=== PATIENT | female | born 1935 | race Caucasian/White ===

== ENCOUNTER 2020-10-15 10:43 | Outpatient (REF) | payer MEDICARE, OTHER, SELFPAY ==
--- NOTE | 2020-10-15 10:49 | MM_ITS ---
EXAMINATION: MM SCREENING DIGITAL BREAST TOMOSYNTHESIS, BILATERAL CLINICAL INFORMATION: Screening. Asymptomatic. The lifetime risk of breast cancer based on the Tyrer-Cuzick Model is 1%. COMPARISON: Mammography: 10/10/2019, 09/08/2018, 08/22/2017 TECHNIQUE: Digital breast tomosynthesis is performed in both the craniocaudal and mediolateral oblique views along with computer-aided detection (CAD). Synthesized 2D images are generated from the tomosynthesis. FINDINGS: There are scattered areas of fibroglandular density (ACR BI-RADS breast composition Category b). There are no significant masses, abnormal calcifications, or other abnormalities. Parenchymal pattern is similar to prior studies. No significant changes. MM/MM tomosynthesis screening BI IMPRESSION: No mammographic evidence of malignancy. ASSESSMENT: BI-RADS 1: Negative RECOMMENDATION: Routine annual mammography screening. This patient's information was entered into a reminder system with a target due date for their next mammogram.
== END 2020-10-15 10:44 | disposition home or self-care (01) ==
LOC: HO.MAMMO 10:43
PROVIDERS: PCP Internal Medicine; Visit Provider Internal Medicine
DX: Z12.31 Encounter for screening mammogram for malignant neoplasm of breast (principal)
CPT/HCPCS: 77063; 77067

== ENCOUNTER 2021-02-09 11:25 | Outpatient (REF) | payer MEDICARE, OTHER, SELFPAY ==
[2021-02-09 13:14] LABS: MANUAL DIFF FLAG NO
[2021-02-09 13:37] LABS: Basophils Percent Auto 0.7 % (0-2); Eosinophils Absolute Auto 0.1 X10*3/uL (0.0-0.4); Eosinophils Percent Auto 1.5 % (0-4); Hematocrit 40.5 % (37-47); Hemoglobin 13.4 g/dl (12.0-16.0); Imm Gran Abs Auto 0.01 X10*3/uL (0.00-0.03); Imm Gran Pct Auto 0.2 % (0.0-0.4); Lymphocytes Absolute Auto 1.2 X10*3/uL (1.2-4.9); Lymphocytes Percent Auto 19.7 % (20-40); Mean Corpuscular HGB Conc 33.1 g/dl (31.0-35.0); Mean Corpuscular Hemoglobin 32.4 pg (27.0-33.0); Mean Corpuscular Volume 97.8 fL (80-98); Mean Platelet Volume 8.8 fL (9.4-12.3); Monocytes Absolute Auto 0.6 X10*3/uL (0.1-1.2); Monocytes Percent Auto 10.8 % (2-11); Neutrophils Percent Auto 67.1 % (45-73); Platelet Count 268 X10*3/uL (160-400); Red Blood Count 4.14 X10*6/uL (4.20-5.50); Red Cell Distribution Width 13.2 % (11.0-16.0); White Blood Count 5.9 X10*3/uL (4.8-10.8)
[2021-02-09 13:53] LABS: Alanine Aminotransferase 15 U/L (0-31); Albumin Level 4.4 g/dL (3.5-5.0); Alkaline Phosphatase 84 U/L (39-117); Anion Gap 13 (12-20); Aspartate Amino Transferase 23 U/L (5-31); Bilirubin Total 0.7 mg/dL (0.0-1.0); Blood Urea Nitrogen 18 mg/dL (9-16); C Reactive Protein 0.36 mg/dL (< or = 0.50); Calcium 9.3 mg/dL (8.4-10.2); Carbon Dioxide 29 mmol/L (22-29); Chloride 103 mmol/L (96-108); Estimated Glomerular Filt Rate > 60; Glucose Random 86 mg/dL (60-115); Potassium 4.5 mmol/L (3.3-5.1); Sodium 140 mmol/L (135-145); Total Protein 7.2 g/dL (6.5-8.0)
[2021-02-09 13:59] LABS: Free T4 (Free Thyroxine) 0.98 ng/dL (0.71-1.85); Thyroid Stimulating Hormone 0.63 uIU/mL (0.32-4.0); Vitamin D 25-OH Total 51.2 ng/mL (>30)
[2021-02-09 14:15] LABS: Folate 8.2 ng/mL (> or = 4.0); Vitamin B12 < 146 pg/mL (200-900)
== END 2021-02-09 11:26 | disposition home or self-care (01) ==
LOC: HO.10HDL 11:25
PROVIDERS: Visit Provider Internal Medicine
DX: I10 Essential (primary) hypertension (principal); E03.9 Hypothyroidism, unspecified; J44.9 Chronic obstructive pulmonary disease, unspecified; M81.0 Age-related osteoporosis without current pathological fracture
CPT/HCPCS: 36415; 80053; 82306; 82607; 82746; 84439; 84443; 85025; 86140

== ENCOUNTER 2021-06-15 10:57 | Outpatient (REF) | payer MEDICARE, OTHER, SELFPAY ==
--- NOTE | ~2021-06-15 | CT_ITS ---
EXAMINATION: CT HEAD WITHOUT CONTRAST CLINICAL INFORMATION: Multiple sclerosis. COMPARISON: None TECHNIQUE: Contiguous axial imaging was performed from the skull base to vertex without intravenous administration of contrast. This CT examination was performed using dose optimization techniques as appropriate, variously including the following: *Automated exposure control *Adjustment of mA and/or kV according to patient size (this includes techniques or standardized protocols for targeted exams where dose is matched to indication/reason for exam; i.e. extremities or head) *Use of iterative reconstruction technique DLP: 664 mGy-cm FINDINGS: There is no evidence of acute intracranial hemorrhage or territorial infarction. No abnormal mass effect or midline shift is seen. [id number] matter differentiation is well preserved. No extra-axial fluid collections are identified. There is a large amount of periventricular white matter low density as well as other regions of white matter low density consistent with microangiopathy. Calcified vertebral and carotid arteries present. There is mild prominence of ventricles and sulci. The osseous structures and soft tissues are normal. The mastoid air cells and visualized portions of the paranasal sinuses are well aerated. CT/CT head/brain wo con IMPRESSION: No acute intracranial pathology. 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
== END 2021-06-15 10:58 | disposition home or self-care (01) ==
LOC: HO.CT 10:57
PROVIDERS: PCP Internal Medicine; Visit Provider Internal Medicine
DX: G35 Multiple sclerosis (principal); J44.9 Chronic obstructive pulmonary disease, unspecified; Z87.891 Personal history of nicotine dependence
CPT/HCPCS: 70450

== ENCOUNTER 2021-08-06 11:55 | Outpatient (REF) | payer MEDICARE, OTHER, SELFPAY ==
[2021-08-06 13:22] LABS: MANUAL DIFF FLAG NO
[2021-08-06 13:25] LABS: Basophils Percent Auto 0.7 % (0-2); Eosinophils Absolute Auto 0.1 X10*3/uL (0.0-0.4); Hematocrit 40.9 % (37-47); Hemoglobin 13.8 g/dl (12.0-16.0); Imm Gran Abs Auto 0.01 X10*3/uL (0.00-0.03); Imm Gran Pct Auto 0.2 % (0.0-0.4); Lymphocytes Absolute Auto 1.3 X10*3/uL (1.2-4.9); Lymphocytes Percent Auto 21.3 % (20-40); Mean Corpuscular HGB Conc 33.7 g/dl (31.0-35.0); Mean Corpuscular Hemoglobin 32.7 pg (27.0-33.0); Mean Corpuscular Volume 96.9 fL (80-98); Mean Platelet Volume 8.6 fL (9.4-12.3); Monocytes Absolute Auto 0.7 X10*3/uL (0.1-1.2); Neutrophils Absolute Auto 3.9 X10*3/uL (2.0-8.3); Neutrophils Percent Auto 64.8 % (45-73); Platelet Count 271 X10*3/uL (160-400); Red Blood Count 4.22 X10*6/uL (4.20-5.50); Red Cell Distribution Width 13.2 % (11.0-16.0)
[2021-08-06 13:57] LABS: Alanine Aminotransferase 15 U/L (0-31); Albumin Level 4.4 g/dL (3.5-5.0); Alkaline Phosphatase 71 U/L (39-117); Anion Gap 13 (12-20); Aspartate Amino Transferase 22 U/L (5-31); Bilirubin Total 0.6 mg/dL (0.0-1.0); Blood Urea Nitrogen 14 mg/dL (9-16); Calcium 10.8 mg/dL (8.4-10.2); Carbon Dioxide 29 mmol/L (22-29); Chloride 103 mmol/L (96-108); Estimated Glomerular Filt Rate > 60; Glucose Random 91 mg/dL (60-115); Potassium 4.7 mmol/L (3.3-5.1); Sodium 140 mmol/L (135-145); Total Protein 7.3 g/dL (6.5-8.0)
[2021-08-06 14:18] LABS: Free T4 (Free Thyroxine) 1.07 ng/dL (0.71-1.85); Thyroid Stimulating Hormone 0.99 uIU/mL (0.32-4.0)
[2021-08-06 14:51] LABS: Vitamin B12 338 pg/mL (200-900)
== END 2021-08-06 11:56 | disposition home or self-care (01) ==
LOC: HO.10HDL 11:55
PROVIDERS: Visit Provider Internal Medicine
DX: J44.9 Chronic obstructive pulmonary disease, unspecified (principal); E03.9 Hypothyroidism, unspecified; I10 Essential (primary) hypertension; E53.8 Deficiency of other specified B group vitamins
CPT/HCPCS: 36415; 80053; 82607; 84439; 84443; 85025

== ENCOUNTER 2021-08-20 13:14 | Outpatient (REF) | payer SELFPAY ==
--- NOTE | 2021-08-20 13:23 | MHC.AU.HFU ---
Hearing Instrument Follow-Up- Binaural Date of Visit: 08/20/21 Right Ear: Senior Qa Automation Engineer: Phonak Model: Audeo M 50-R Serial Number: [id number] Repair Warranty: 09/10/2022 Battery Size: Rechargeable Color: Sand [address] Tester: #1 Power Type of Mold: Silicon canal #[id number] Type of Wax Guard: CeruShield Dispensed By: [facility] Date of Fittin06/27/2019 Left Ear: Senior Qa Automation Engineer: Phonak Model: Audeo M 50-R Serial Number: [id number] Repair Warranty: 09/10/2022 Battery Size: Rechargeable Color: Sand [address] Tester: #1 Medium Type of Dome: Small Open Type of Wax Guard: CeruShield Dispensed By: [facility] Date of Fittin06/27/2019 Follow-Up Summary: Hearing Aid Problem - Right aid is not charging. Patient brought in her own chainstitch seat joiner with the aids. The left aid charges in the right side of the chainstitch seat joiner. Also confirmed with stock chainstitch seat joiner that the right aid is not charging. Sending right aid for repair and cleaning of the slim tip under warranty. Patient reports she never wears the aids at home. Discussed the benefits of every day, all day use of both hearing aids to improve hearing. Recommendations:Call patient when right repair in. Will need to pair aids together. Diagnosis Code(s): Primary Diagnosis: H90.3 Bilateral Sensorineural Hearing Loss Signature: Provider: Karen Umanzor, [facility]
== END 2021-08-20 13:15 | disposition home or self-care (01) ==
LOC: HO.HAP 13:14
PROVIDERS: Visit Provider Internal Medicine
DX: Z13.89 Encounter for screening for other disorder (principal)

== ENCOUNTER 2021-09-22 11:08 | Outpatient (REF) | payer SELFPAY | END 2021-09-22 11:09 | disposition home or self-care (01) | LOC: HO.HAP 11:08 | PROVIDERS: Visit Provider Internal Medicine | DX: Z13.89 Encounter for screening for other disorder (principal) ==

== ENCOUNTER 2021-11-05 11:35 | Outpatient (REF) | payer MEDICARE, OTHER, SELFPAY ==
[2021-11-05 14:16] LABS: Anion Gap 10 (12-20); Blood Urea Nitrogen 16 mg/dL (9-16); Calcium 9.4 mg/dL (8.4-10.2); Carbon Dioxide 29 mmol/L (22-29); Chloride 107 mmol/L (96-108); Estimated Glomerular Filt Rate > 60; Glucose Random 77 mg/dL (60-115); Potassium 4.3 mmol/L (3.3-5.1); Sodium 142 mmol/L (135-145)
[2021-11-05 14:42] LABS: Free T4 (Free Thyroxine) 1.13 ng/dL (0.71-1.85); Thyroid Stimulating Hormone 0.61 uIU/mL (0.32-4.0)
[2021-11-08 16:26] LABS: Calcium (PTHI) 9.8 mg/dL (8.6-10.4); PTHI 40 pg/mL (14-64)
== END 2021-11-05 11:36 | disposition home or self-care (01) ==
LOC: HO.10HDL 11:35
PROVIDERS: Visit Provider Internal Medicine
DX: E03.9 Hypothyroidism, unspecified (principal); J44.9 Chronic obstructive pulmonary disease, unspecified; I10 Essential (primary) hypertension; E83.52 Hypercalcemia
CPT/HCPCS: 36415; 80048; 83970; 84439; 84443

== ENCOUNTER 2022-02-24 12:24 | Outpatient (REF) | payer MEDICARE, OTHER, SELFPAY ==
--- NOTE | ~2022-02-24 | MM_ITS ---
EXAMINATION: MM SCREENING DIGITAL BREAST TOMOSYNTHESIS, BILATERAL CLINICAL INFORMATION: Screening. Asymptomatic. COMPARISON: Mammography: 10/15/2020 and studies dating back to 12/28/2011 TECHNIQUE: Digital breast tomosynthesis is performed in both the craniocaudal and mediolateral oblique views along with computer-aided detection (CAD). Synthesized 2D images are generated from the tomosynthesis. FINDINGS: There are scattered areas of fibroglandular density (ACR BI-RADS breast composition Category b). There is a stable parenchymal pattern of the right breast with no new abnormal dominant mass or suspicious grouping of microcalcifications. Within the axillary region approximately 11 cm from the nipple, there is a 7 mm irregularly marginated density but on tomographic view appears to be a skin lesion with appearance of a mole. MM/MM tomosynthesis screening BI IMPRESSION: No mammographic evidence of malignancy. ASSESSMENT: BI-RADS 1: Negative RECOMMENDATION: Routine annual mammography screening. This patient's information was entered into a reminder system with a target due date for their next mammogram.
--- NOTE | ~2022-02-24 | MM_ITS ---
EXAMINATION: BONE DENSITOMETRY CLINICAL INDICATION: Asymptomatic menopausal state. COMPARISON: Previous BD dated 03/14/2019 and baseline BD dated 03/24/2011. TECHNIQUE: Using a [employer] DXA System (software version: 13.1) manufactured by [employer], dual-energy x-ray absorptiometry was performed of the lumbar spine and left hip. The images are of good technical quality. Summary results are attached. FINDINGS: AP SPINE L1-L4: Current: BMD 0.758 g/cm2, Z-score -1.2, T-score -3.5, osteoporosis, 4.3% increase from previous, 7.4% decrease from baseline (<5% change is not significant). Prior: BMD 0.727 g/cm2. Baseline: BMD 0.819 g/cm2. LEFT FEMUR, NECK: Current: BMD 0.693 g/cm2, Z-score 0.2, T-score -2.5, osteoporosis. Prior: BMD 0.660 g/cm2. Baseline: BMD 0.702 g/cm2. LEFT FEMUR, TOTAL: Current: BMD 0.682 g/cm2, Z-score 0.0, T-score -2.6, osteoporosis, 6.1% increase from previous, 4.2% decrease from baseline (<5% change is not significant). Prior: BMD 0.643 g/cm2. Baseline: BMD 0.712 g/cm2. IDENTIFIED RISK FACTORS: Low calcium intake, menopause. HISTORY OF FRACTURE: None listed. MEDICATIONS: Vitamin D. MM/XR DEXA axial skeleton IMPRESSION: 1. DIAGNOSIS: Osteoporosis based on the lowest T-score value of -3.5 in the lumbar spine applying World Health Organization criteria. 2. 10-YEAR FRACTURE RISK PREDICTION, FRAX: According to the guidelines, FRAX calculation should only be performed on patients in the osteopenia bone density category. Therefore, FRAX was not performed on this patient. 3. Treatment Recommendations: NOF guidelines recommend consideration for treatment in postmenopausal women and men age 50 and older presenting with the following: -A hip or vertebral (clinical or morphometric) fracture. -T-score less than or equal to -2.5 at the femoral neck or spine after appropriate evaluation to exclude secondary causes. -Low bone mass at the hip or spine and a 10-year fracture probability by FRAX of greater than or equal to 3% for hip fracture or greater than or equal to 20% for major osteoporotic fracture based on the [place] adapted WHO algorithm. 4. Other Recommendations: All treatment decisions require clinical judgment and consideration of individual patient factors, including patient preferences, comorbidities, previous drug use, risk factors not captured in the FRAX model (e.g. frailty, falls, vitamin D deficiency, increased bone turnover, interval significant decline in bone density) and possible under or overestimation of fracture risk by FRAX. Additional medical evaluation for secondary cause of low bone mineral density may be appropriate. FUTURE SCAN RECOMMENDATION: People with diagnosed cases of osteoporosis or at high risk for fracture should have regular bone mineral density tests. For patients eligible for Medicare, routine testing is allowed once every 2 years. The testing frequency can be increased to one year for patients who have rapidly progressing disease, those who are receiving or discontinuing medical therapy to restore bone mass, or have additional risk factors.
[2022-02-24 13:32] LABS: MANUAL DIFF FLAG NO
[2022-02-24 13:52] LABS: Basophils Percent Auto 0.5 % (0-2); Eosinophils Absolute Auto 0.1 X10*3/uL (0.0-0.4); Eosinophils Percent Auto 1.6 % (0-4); Hematocrit 40.4 % (37.0-47.0); Hemoglobin 13.6 g/dl (12.0-16.0); Imm Gran Abs Auto 0.02 X10*3/uL (0.00-0.03); Imm Gran Pct Auto 0.3 % (0.0-0.4); Lymphocytes Absolute Auto 1.4 X10*3/uL (1.2-4.9); Lymphocytes Percent Auto 21.7 % (20-40); Mean Corpuscular HGB Conc 33.7 g/dl (31.0-35.0); Mean Corpuscular Hemoglobin 33.2 pg (27.0-33.0); Mean Corpuscular Volume 98.5 fL (80.0-98.0); Mean Platelet Volume 8.5 fL (9.4-12.3); Monocytes Absolute Auto 0.7 X10*3/uL (0.1-1.2); Monocytes Percent Auto 10.8 % (2-11); Neutrophils Absolute Auto 4.1 x10*3/uL (2.0-8.3); Neutrophils Percent Auto 65.1 % (45-73); Platelet Count 251 X10*3/uL (160-400); Red Cell Distribution Width 13.3 % (11.0-16.0); White Blood Count 6.3 X10*3/uL (4.8-10.8)
[2022-02-24 14:13] LABS: Alanine Aminotransferase 19 U/L (0-31); Albumin Level 4.4 g/dL (3.5-5.0); Alkaline Phosphatase 79 U/L (39-117); Anion Gap 11 (12-20); Aspartate Amino Transferase 23 U/L (5-31); Bilirubin Total 0.5 mg/dL (0.0-1.0); Blood Urea Nitrogen 15 mg/dL (9-16); Calcium 9.9 mg/dL (8.4-10.2); Carbon Dioxide 31 mmol/L (22-29); Chloride 103 mmol/L (96-108); Cholesterol 241 mg/dL; Estimated Glomerular Filt Rate > 60; Glucose Fasting 91 mg/dL (60-99); HDL Cholesterol 93 mg/dL; LDL Cholesterol Calculated 131 mg/dl; Potassium 4.6 mmol/L (3.3-5.1); Sodium 140 mmol/L (135-145); Total Protein 7.4 g/dL (6.5-8.0); Triglycerides 85 mg/dL
[2022-02-24 14:27] LABS: Free T4 (Free Thyroxine) 0.95 ng/dL (0.71-1.85); Thyroid Stimulating Hormone 0.95 uIU/mL (0.32-4.0); Vitamin D 25-OH Total 47.2 ng/mL (>30)
[2022-02-24 14:48] LABS: Vitamin B12 388 pg/mL (200-900)
== END 2022-02-24 12:25 | disposition home or self-care (01) ==
LOC: HO.MAMMO 12:24
PROVIDERS: PCP Internal Medicine; Visit Provider Internal Medicine
DX: Z12.31 Encounter for screening mammogram for malignant neoplasm of breast (principal); Z13.820 Encounter for screening for osteoporosis; E53.8 Deficiency of other specified B group vitamins; I10 Essential (primary) hypertension; J44.9 Chronic obstructive pulmonary disease, unspecified; E03.9 Hypothyroidism, unspecified; M81.0 Age-related osteoporosis without current pathological fracture; Z78.0 Asymptomatic menopausal state
CPT/HCPCS: 36415; 77063; 77067; 77080; 80053; 80061; 82306; 82607; 84439; 84443; 85025

== ENCOUNTER 2022-07-01 11:41 | Outpatient (REF) | payer MEDICARE, OTHER, SELFPAY ==
[2022-07-01 11:58] LABS: MANUAL DIFF FLAG NO
[2022-07-01 12:17] LABS: Basophils Percent Auto 0.6 % (0-2); Eosinophils Absolute Auto 0.1 X10*3/uL (0.0-0.4); Eosinophils Percent Auto 1.6 % (0-4); Hematocrit 41.9 % (37.0-47.0); Hemoglobin 13.9 g/dl (12.0-16.0); Imm Gran Abs Auto 0.04 X10*3/uL (0.00-0.03); Imm Gran Pct Auto 0.6 % (0.0-0.4); Lymphocytes Percent Auto 15.2 % (20-40); Mean Corpuscular HGB Conc 33.2 g/dl (31.0-35.0); Mean Corpuscular Hemoglobin 32.3 pg (27.0-33.0); Mean Corpuscular Volume 97.2 fL (80.0-98.0); Mean Platelet Volume 8.4 fL (9.4-12.3); Monocytes Absolute Auto 0.7 X10*3/uL (0.1-1.2); Monocytes Percent Auto 10.4 % (2-11); Neutrophils Absolute Auto 4.8 x10*3/uL (2.0-8.3); Neutrophils Percent Auto 71.6 % (45-73); Platelet Count 321 X10*3/uL (160-400); Red Blood Count 4.31 X10*6/uL (4.20-5.50); Red Cell Distribution Width 13.4 % (11.0-16.0); White Blood Count 6.8 X10*3/uL (4.8-10.8)
[2022-07-01 12:46] LABS: Alanine Aminotransferase 13 U/L (0-31); Albumin Level 4.6 g/dL (3.5-5.0); Alkaline Phosphatase 78 U/L (39-117); Anion Gap 14 (12-20); Aspartate Amino Transferase 20 U/L (5-31); Bilirubin Total 0.5 mg/dL (0.0-1.0); Blood Urea Nitrogen 13 mg/dL (9-16); Calcium 9.6 mg/dL (8.4-10.2); Carbon Dioxide 29 mmol/L (22-29); Chloride 103 mmol/L (96-108); Estimated Glomerular Filt Rate > 60; Glucose Random 97 mg/dL (60-115); Potassium 4.3 mmol/L (3.3-5.1); Sodium 142 mmol/L (135-145); Total Protein 7.4 g/dL (6.5-8.0)
[2022-07-01 13:09] LABS: Free T4 (Free Thyroxine) 1.13 ng/dL (0.71-1.85); Thyroid Stimulating Hormone 0.23 uIU/mL (0.32-4.0)
== END 2022-07-01 11:42 | disposition home or self-care (01) ==
LOC: HO.LAB 11:41
PROVIDERS: PCP Internal Medicine; Visit Provider Internal Medicine
DX: J44.9 Chronic obstructive pulmonary disease, unspecified (principal); I10 Essential (primary) hypertension; E03.9 Hypothyroidism, unspecified
CPT/HCPCS: 36415; 80053; 84439; 84443; 85025

== ENCOUNTER 2022-08-15 11:23 | Outpatient (REF) | payer MEDICARE, OTHER, SELFPAY ==
[2022-08-15 14:20] LABS: Free T4 (Free Thyroxine) 1.13 ng/dL (0.71-1.85); Thyroid Stimulating Hormone 0.44 uIU/mL (0.32-4.0)
== END 2022-08-15 11:24 | disposition home or self-care (01) ==
LOC: HO.10HDL 11:23
PROVIDERS: Visit Provider Internal Medicine
DX: J44.9 Chronic obstructive pulmonary disease, unspecified (principal); R00.2 Palpitations
CPT/HCPCS: 36415; 84439; 84443

== ENCOUNTER 2023-01-31 13:15 | Outpatient (REF) | payer MEDICARE, OTHER, SELFPAY ==
[2023-01-31 14:35] LABS: MANUAL DIFF FLAG NO
[2023-01-31 14:40] LABS: Basophils Percent Auto 0.6 % (0-2); Eosinophils Absolute Auto 0.2 X10*3/uL (0.0-0.4); Hematocrit 39.2 % (37.0-47.0); Hemoglobin 13.3 g/dl (12.0-16.0); Imm Gran Abs Auto 0.02 X10*3/uL (0.00-0.03); Imm Gran Pct Auto 0.3 % (0.0-0.4); Lymphocytes Absolute Auto 1.3 X10*3/uL (1.2-4.9); Lymphocytes Percent Auto 19.1 % (20-40); Mean Corpuscular HGB Conc 33.9 g/dl (31.0-35.0); Mean Corpuscular Hemoglobin 32.8 pg (27.0-33.0); Mean Corpuscular Volume 96.8 fL (80.0-98.0); Mean Platelet Volume 8.9 fL (9.4-12.3); Monocytes Absolute Auto 0.7 X10*3/uL (0.1-1.2); Monocytes Percent Auto 11.1 % (2-11); Neutrophils Absolute Auto 4.3 x10*3/uL (2.0-8.3); Neutrophils Percent Auto 65.9 % (45-73); Platelet Count 270 X10*3/uL (160-400); Red Blood Count 4.05 X10*6/uL (4.20-5.50); Red Cell Distribution Width 13.1 % (11.0-16.0); White Blood Count 6.6 X10*3/uL (4.8-10.8)
[2023-01-31 15:49] LABS: Alanine Aminotransferase 15 U/L (0-31); Albumin Level 4.1 g/dL (3.5-5.0); Alkaline Phosphatase 71 U/L (39-117); Anion Gap 11 (12-20); Aspartate Amino Transferase 21 U/L (5-31); Bilirubin Total 0.4 mg/dL (0.0-1.0); Blood Urea Nitrogen 19 mg/dL (9-16); C Reactive Protein 0.22 mg/dL (< or = 0.50); Calcium 9.5 mg/dL (8.4-10.2); Carbon Dioxide 31 mmol/L (22-29); Chloride 103 mmol/L (96-108); Estimated Glomerular Filt Rate > 60; Glucose Random 79 mg/dL (60-115); Potassium 4.4 mmol/L (3.3-5.1); Sodium 141 mmol/L (135-145); Total Protein 6.6 g/dL (6.5-8.0)
[2023-01-31 16:19] LABS: Folate 15.1 ng/mL (> or = 4.0); Free T4 (Free Thyroxine) 1.08 ng/dL (0.71-1.85); Thyroid Stimulating Hormone 0.95 uIU/mL (0.32-4.0); Vitamin B12 517 pg/mL (200-900)
== END 2023-01-31 13:16 | disposition home or self-care (01) ==
LOC: HO.10HDL 13:15
PROVIDERS: Visit Provider Internal Medicine
DX: R53.1 Weakness (principal); J44.9 Chronic obstructive pulmonary disease, unspecified; E03.9 Hypothyroidism, unspecified
CPT/HCPCS: 36415; 80053; 82607; 82746; 84439; 84443; 85025; 86140

== ENCOUNTER 2023-02-01 13:44 | Outpatient (REF) | payer MEDICARE, OTHER, SELFPAY ==
[2023-02-01 14:01] LABS: Appearance Urine Cloudy; Color Urine Yellow; Glucose Urine UA Negative (Negative); Leukocyte Esterase Urine Small (1+) (Negative); Nitrite Urine Negative (Negative); PH 5.5 (5.0-9.0); Specific Gravity - Urine 1.015 (1.005-1.025); UMIC TRIGGER UACC YES; Urine Blood Large (3+) (Negative); Urine Ketones Negative (Negative); Urine Protein 30 (1+) mg/dL (Neg-Trace)
[2023-02-01 14:07] LABS: Bacteria Urine None Seen (None Seen); Hyaline Casts Urine 0-2 /LPF (0-2); RBC Urine >20 /HPF (0-2); Squamous Epithelial Cell Urine 0-2 /HPF (0-2); UACC Culture Trigger YES
== END 2023-02-01 13:45 | disposition home or self-care (01) ==
LOC: HO.LNP 13:44
PROVIDERS: Visit Provider Internal Medicine
DX: R53.1 Weakness (principal); J44.9 Chronic obstructive pulmonary disease, unspecified; E03.9 Hypothyroidism, unspecified
CPT/HCPCS: 81001; 81003; 87086

== ENCOUNTER 2023-02-10 11:10 | Outpatient (REF) | payer MEDICARE, OTHER, SELFPAY ==
[2023-02-10 13:27] LABS: Urine Cytology See Pathology rpt
== END 2023-02-10 11:11 | disposition home or self-care (01) ==
LOC: HO.10HDL 11:10
PROVIDERS: Visit Provider Internal Medicine
DX: R31.9 Hematuria, unspecified (principal)
CPT/HCPCS: 88112

== ENCOUNTER 2023-04-06 12:07 | Outpatient (REF) | payer MEDICARE, OTHER, SELFPAY ==
--- NOTE | ~2023-04-06 | XR_ITS ---
EXAMINATION: XR CHEST CLINICAL INFORMATION: Shortness of breath and COPD COMPARISON: 09/13/2018 TECHNIQUE: 2 views of the chest were obtained. FINDINGS: Again noted are hyperinflated lungs. Large calcified granuloma is again noted at the left lung base. Some other smaller granulomas may be present at the lung base. Surgical clips are present upper left abdomen. No infiltrates, effusions or lung masses are seen. The heart size is normal and there is no evidence of CHF. XR/XR chest 2V IMPRESSION: No acute intrathoracic disease. COPD. Old granulomatous disease.
[2023-04-06 12:20] LABS: MANUAL DIFF FLAG NO
[2023-04-06 13:28] LABS: Basophils Absolute Auto 0.1 X10*3/uL (0.0-0.2); Basophils Percent Auto 0.8 % (0-2); Eosinophils Absolute Auto 0.1 X10*3/uL (0.0-0.4); Eosinophils Percent Auto 1.6 % (0-4); Hematocrit 42.9 % (37.0-47.0); Hemoglobin 14.2 g/dl (12.0-16.0); Imm Gran Abs Auto 0.04 X10*3/uL (0.00-0.03); Imm Gran Pct Auto 0.5 % (0.0-0.4); Lymphocytes Absolute Auto 1.3 X10*3/uL (1.2-4.9); Lymphocytes Percent Auto 16.8 % (20-40); Mean Corpuscular HGB Conc 33.1 g/dl (31.0-35.0); Mean Corpuscular Hemoglobin 32.3 pg (27.0-33.0); Mean Corpuscular Volume 97.5 fL (80.0-98.0); Mean Platelet Volume 8.7 fL (9.4-12.3); Monocytes Percent Auto 12.5 % (2-11); Neutrophils Absolute Auto 5.2 x10*3/uL (2.0-8.3); Neutrophils Percent Auto 67.8 % (45-73); Platelet Count 316 X10*3/uL (160-400); Red Cell Distribution Width 12.5 % (11.0-16.0); White Blood Count 7.7 X10*3/uL (4.8-10.8)
[2023-04-06 14:32] LABS: Anion Gap 13 (12-20); Blood Urea Nitrogen 12 mg/dL (9-16); C Reactive Protein 1.19 mg/dL (< or = 0.50); Calcium 9.8 mg/dL (8.4-10.2); Carbon Dioxide 32 mmol/L (22-29); Chloride 102 mmol/L (96-108); Estimated Glomerular Filt Rate > 60; Glucose Random 80 mg/dL (60-115); Potassium 4.5 mmol/L (3.3-5.1); Sodium 142 mmol/L (135-145)
== END 2023-04-06 12:08 | disposition home or self-care (01) ==
LOC: HO.LAB 12:07
PROVIDERS: PCP Internal Medicine; Visit Provider Internal Medicine
DX: R06.02 Shortness of breath (principal); J44.9 Chronic obstructive pulmonary disease, unspecified
CPT/HCPCS: 36415; 71046; 80048; 82550; 85025; 86140

== ENCOUNTER 2023-08-03 11:18 | Outpatient (REF) | payer MEDICARE, OTHER, SELFPAY ==
[2023-08-03 11:57] LABS: MANUAL DIFF FLAG NO
[2023-08-03 12:23] LABS: Basophils Percent Auto 0.5 % (0-2); Eosinophils Absolute Auto 0.2 X10*3/uL (0.0-0.4); Eosinophils Percent Auto 3.2 % (0-4); Hematocrit 41.2 % (37.0-47.0); Hemoglobin 13.9 g/dl (12.0-16.0); Imm Gran Abs Auto 0.02 X10*3/uL (0.00-0.03); Imm Gran Pct Auto 0.4 % (0.0-0.4); Lymphocytes Absolute Auto 1.1 X10*3/uL (1.2-4.9); Lymphocytes Percent Auto 18.6 % (20-40); Mean Corpuscular HGB Conc 33.7 g/dl (31.0-35.0); Mean Corpuscular Hemoglobin 32.1 pg (27.0-33.0); Mean Corpuscular Volume 95.2 fL (80.0-98.0); Mean Platelet Volume 8.7 fL (9.4-12.3); Monocytes Absolute Auto 0.6 X10*3/uL (0.1-1.2); Monocytes Percent Auto 10.9 % (2-11); Neutrophils Absolute Auto 3.8 x10*3/uL (2.0-8.3); Neutrophils Percent Auto 66.4 % (45-73); Platelet Count 247 X10*3/uL (160-400); Red Blood Count 4.33 X10*6/uL (4.20-5.50); White Blood Count 5.7 X10*3/uL (4.8-10.8)
[2023-08-03 12:35] LABS: Alanine Aminotransferase 12 U/L (0-31); Alkaline Phosphatase 64 U/L (39-117); Anion Gap 9 (12-20); Aspartate Amino Transferase 18 U/L (5-31); Bilirubin Total 0.4 mg/dL (0.0-1.0); Blood Urea Nitrogen 16 mg/dL (9-16); Calcium 9.8 mg/dL (8.4-10.2); Carbon Dioxide 30 mmol/L (22-29); Chloride 104 mmol/L (96-108); Cholesterol 241 mg/dL (<200); Estimated Glomerular Filt Rate > 60; Glucose Random 117 mg/dL (60-115); Sodium 139 mmol/L (135-145); Total Protein 6.9 g/dL (6.5-8.0)
[2023-08-03 12:43] LABS: Free T4 (Free Thyroxine) 0.74 ng/dL (0.71-1.85); Thyroid Stimulating Hormone 1.03 uIU/mL (0.32-4.0)
[2023-08-03 14:25] LABS: Vitamin B12 361 pg/mL (200-900)
== END 2023-08-03 11:19 | disposition home or self-care (01) ==
LOC: HO.10HDL 11:18
PROVIDERS: Visit Provider Internal Medicine
DX: J44.9 Chronic obstructive pulmonary disease, unspecified (principal); E03.9 Hypothyroidism, unspecified; R53.83 Other fatigue; I10 Essential (primary) hypertension; E53.8 Deficiency of other specified B group vitamins
CPT/HCPCS: 36415; 80053; 82465; 82607; 84439; 84443; 85025

== ENCOUNTER 2024-01-25 08:33 | Outpatient (REF) | payer MEDICARE, OTHER, SELFPAY ==
[2024-01-25 08:56] LABS: MANUAL DIFF FLAG NO
[2024-01-25 09:17] LABS: Basophils Absolute Auto 0.1 X10*3/uL (0.0-0.2); Basophils Percent Auto 0.7 % (0-2); Eosinophils Absolute Auto 0.2 X10*3/uL (0.0-0.4); Eosinophils Percent Auto 2.2 % (0-4); Hematocrit 39.3 % (37.0-47.0); Hemoglobin 13.2 g/dl (12.0-16.0); Imm Gran Abs Auto 0.02 X10*3/uL (0.00-0.03); Imm Gran Pct Auto 0.3 % (0.0-0.4); Lymphocytes Absolute Auto 1.3 X10*3/uL (1.2-4.9); Lymphocytes Percent Auto 18.7 % (20-40); Mean Corpuscular HGB Conc 33.6 g/dl (31.0-35.0); Mean Corpuscular Hemoglobin 31.4 pg (27.0-33.0); Mean Corpuscular Volume 93.6 fL (80.0-98.0); Mean Platelet Volume 8.4 fL (9.4-12.3); Monocytes Absolute Auto 0.8 X10*3/uL (0.1-1.2); Monocytes Percent Auto 11.7 % (2-11); Neutrophils Absolute Auto 4.4 x10*3/uL (2.0-8.3); Neutrophils Percent Auto 66.4 % (45-73); Platelet Count 275 X10*3/uL (160-400); Red Cell Distribution Width 13.2 % (11.0-16.0); White Blood Count 6.7 X10*3/uL (4.8-10.8)
[2024-01-25 09:55] LABS: Alanine Aminotransferase 12 U/L (0-31); Albumin Level 4.1 g/dL (3.5-5.0); Alkaline Phosphatase 83 U/L (39-117); Anion Gap 11 (12-20); Aspartate Amino Transferase 18 U/L (5-31); Bilirubin Total 0.4 mg/dL (0.0-1.0); Blood Urea Nitrogen 14 mg/dL (9-16); Calcium 9.5 mg/dL (8.4-10.2); Carbon Dioxide 31 mmol/L (22-29); Chloride 104 mmol/L (96-108); Cholesterol 236 mg/dL (<200); Estimated Glomerular Filt Rate > 60; Glucose Fasting 85 mg/dL (60-99); HDL Cholesterol 73 mg/dL (>40); LDL Cholesterol Calculated 143 mg/dL (<100); Potassium 4.4 mmol/L (3.3-5.1); Sodium 142 mmol/L (135-145); Total Protein 7.1 g/dL (6.5-8.0); Triglycerides 103 mg/dL (<150)
[2024-01-25 10:12] LABS: Free T4 (Free Thyroxine) 0.93 ng/dL (0.71-1.85); Thyroid Stimulating Hormone 1.17 uIU/mL (0.32-4.0); Vitamin D 25-OH Total 32.5 ng/mL (>30)
== END 2024-01-25 08:34 | disposition home or self-care (01) ==
LOC: HO.LAB 08:33
PROVIDERS: Visit Provider Internal Medicine
DX: I10 Essential (primary) hypertension (principal); J44.9 Chronic obstructive pulmonary disease, unspecified; E78.00 Pure hypercholesterolemia, unspecified; E03.9 Hypothyroidism, unspecified
CPT/HCPCS: 36415; 80053; 80061; 82306; 84439; 84443; 85025

== ENCOUNTER 2024-02-06 22:27 | Inpatient (IN) | payer MEDICARE, OTHER, SELFPAY ==
--- NOTE | 2024-02-06 | ECG_ITS ---
Test Reason : WEAKNESS Blood Pressure : / mmHG Vent. Rate : 084 BPM Atrial Rate : 084 BPM P-R Int : 162 ms QRS Dur : 064 ms QT Int : 328 ms P-R-T Axes : 049 018 209 degrees QTc Int : 387 ms Sinus rhythm with sinus arrhythmia with occasional Premature ventricular complexes Nonspecific ST and T wave abnormality Abnormal ECG No previous ECGs available Referred By: Generic ED Physician Electronically Signed By:KAREN REYNOSO MD
--- NOTE | ~2024-02-06 | XR_ITS ---
EXAMINATION: XR CHEST CLINICAL INFORMATION: Dyspnea. Weakness. Fatigue. COMPARISON: Chest x-ray April 06, 2023 TECHNIQUE: 2 views of the chest were obtained. FINDINGS: No significant abnormality is noted involving the heart, lungs, mediastinum, bony thorax or soft tissues. Surgical clips in the upper abdomen. XR/XR chest 2V IMPRESSION: Unremarkable examination.
[2024-02-06 22:30] VITALS: BP 106/53; PULSE 93; RESP 16; TEMP 36.1; O2SAT 100; BMI 23.2
[2024-02-06 23:15] LABS: MANUAL DIFF FLAG NO
[2024-02-06 23:17] LABS: Basophils Percent Auto 0.3 % (0-2); Eosinophils Percent Auto 0.2 % (0-4); Imm Gran Abs Auto 0.04 X10*3/uL (0.00-0.03); Imm Gran Pct Auto 0.4 % (0.0-0.4); Lymphocytes Absolute Auto 1.2 X10*3/uL (1.2-4.9); Lymphocytes Percent Auto 11.3 % (20-40); Mean Corpuscular HGB Conc 34.8 g/dl (31.0-35.0); Mean Corpuscular Hemoglobin 32.5 pg (27.0-33.0); Mean Corpuscular Volume 93.5 fL (80.0-98.0); Mean Platelet Volume 8.6 fL (9.4-12.3); Monocytes Absolute Auto 0.6 X10*3/uL (0.1-1.2); Monocytes Percent Auto 5.4 % (2-11); Neutrophils Absolute Auto 8.6 x10*3/uL (2.0-8.3); Neutrophils Percent Auto 82.4 % (45-73); Platelet Count 247 X10*3/uL (160-400); Red Blood Count 2.46 X10*6/uL (4.20-5.50); Red Cell Distribution Width 13.4 % (11.0-16.0); White Blood Count 10.4 X10*3/uL (4.8-10.8)
[2024-02-06 23:37] LABS: Anion Gap 12 (12-20); Blood Urea Nitrogen 58 mg/dL (9-16); Calcium 9.3 mg/dL (8.4-10.2); Carbon Dioxide 26 mmol/L (22-29); Chloride 107 mmol/L (96-108); Creatinine Clr Calc Pharmacy 34.3; Estimated Glomerular Filt Rate > 60; Glucose Random 132 mg/dL (60-115); Potassium 4.3 mmol/L (3.3-5.1); Sodium 141 mmol/L (135-145)
[2024-02-06 23:54] LABS: Iron 226 mcg/dL (30-160); Percent Iron Saturation 80 % (15-50); Total Iron Binding Capacity 284 mcg/dL (228-428); Unsaturated Iron Binding 58 ug/dL
[2024-02-07] VITALS (18 sets, daily range): BP systolic 107–141; BP diastolic 40–69; PULSE 66–103; RESP 12–20; TEMP 36.2–37.6; O2SAT 91–100; BMI 23.7
[2024-02-07 00:05] LABS: B Type Natriuretic Peptide 41 pg/mL (<100)
[2024-02-07 00:06] LABS: Troponin-I High Sensitivity < 2.7 ng/L (<3.5-17.0)
--- NOTE | 2024-02-07 00:11 | ED_ITS ---
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 Patient has been more fatigued, short of breath and pale for the past week or so but much more noticeable yesterday. She denies OTC NSAIDs. She can likely not tell you about GIB symptoms. Has seen Michael in the past for colonoscopy. She has no CP. Daughter notes she is very pale. MD elicited complaint: shortness of breath Onset (ago): week(s) (1) Context: occurred during exertion Timing: progressively worsening Severity: moderate Exacerbating factors: exertion and movement Relieving factors: rest Associated symptoms: denies other symptoms Treatment prior to arrival: none Related Data Allergies Allergy/AdvReac Type Severity Reaction Status Date / Time ENVIRONMENTAL Allergy Unknown COUGH Uncoded 02/06/24 22:36 Review of Systems 2 Review of Systems: Constitutional : No Fever, No Chills, pos fatigue, pos malaise ENT/Mouth : No sore throat, No Rhinorrhea, No Swallowing Difficulty Eyes: No Eye Pain, No Swelling, No Redness Cardiovascular : No Chest Pain, positive SOB, No Orthopnea, no Edema Respiratory : No Cough, No Sputum, No Wheezing, positive dyspnea Gastrointestinal : No Nausea, No Vomiting, No Diarrhea, No abdominal Pain, No Hematochezia, No Melena Genitourinary : No Dysuria, No Urinary Frequency, No Hematuria Musculoskeletal : No joint pain, No Myalgias Skin : No Skin Lesions, No rash Neuro : pos Weakness, No Numbness, No Dizziness, No Headache Psych : No Anxiety/Panic, No Depression All other systems reviewed and are negative [facility] Past Medical History Source: obtained from family Medical History Hypertension Hypothyroidism Dementia V-tach Social History Social History (Updated 02/07/24 @ 00:21 by Aissatou Witt DO) Patient Tobacco Use Status: Tobacco use Unknown Physical Exam 2 Vital Signs: Vital Signs: Last Vital Signs Temp 97 F 02/06/24 22:30 Pulse 93 02/06/24 22:30 Resp 16 02/06/24 22:30 BP 106/53 L 02/06/24 22:30 Pulse Ox 100 02/06/24 22:30 O2 Del Method Room Air 02/06/24 22:30 BMI result Body Mass Index 23.2 Appearance: Alert. Oriented x 2 at baseline. No acute distress. Eyes: Pupils equal, round and reactive to light. pale conjunctiva ENT: Pharynx normal. Neck: Normal inspection. Neck supple. CVS: Normal heart rate and rhythm. Pulses normal. Respiratory: No respiratory distress. Breath sounds normal. Abdomen: Soft and nontender. Rectal: dark stool Skin: Skin warm and dry. pale skin color. Normal skin turgor. Extremities: No lower extremity edema. No calf ttp Neuro: Oriented X 2. No motor deficit. No sensory deficit. Medical Decision Making Medical Decision Making [facility] Narrative: 88 yo female with PMH of HTN, hypothyroidism, prior VTACH but daughter denies known CAD and follows with EP at [facility] her PCP has put her on 162mg aspirin daily. She has no known prior GI bleed had colonoscopy with Michael in past. She takes no NSAIDs OTC at this time she comes in with fatigue, [place] and is anemic from baseline with elevated BUN. She has dark stool on rectal exam. Will start on PPI and obtain type and screen with 2 IV lines. She denies known GIB. Will admit for further workup of GIB. Differential Diagnosis Differential Diagnoses: The differential diagnosis associated with the presentation includes anemia, FTT, weakness, mass Admission/Observation Consideration of admission/observation: Escalation of care including admission/observation considered admit for anemia not at transfusion threshold - type and screen ordered and consent on chart GI consult ordered discussed with Dr. Villalta given no acute GIB can hold consult tonight Consult Healthcare Provider Management of the patient was discussed with: Hospitalist (will admit) Lab Data [facility] Lab Attestation statement: I reviewed the patient's lab results. 02/06/24 23:11 02/06/24 23:11 Labs: Lab Results 02/06/24 Range/Units 23:11 WBC 10.4 (4.8-10.8) X10*3/uL RBC 2.46 L D (4.20-5.50) X10*6/uL Hgb 8.0 L D (12.0-16.0) g/dl Hct 23.0 L D (37.0-47.0) % MCV 93.5 (80.0-98.0) fL MCH 32.5 (27.0-33.0) pg MCHC 34.8 (31.0-35.0) g/dl RDW 13.4 (11.0-16.0) % Plt Count 247 (160-400) X10*3/uL MPV 8.6 L (9.4-12.3) fL Immature Gran % (Auto) 0.4 (0.0-0.4) % Neut % (Auto) 82.4 H (45-73) % Lymph % (Auto) 11.3 L (20-40) % [place] % (Auto) 5.4 (2-11) % Eos % (Auto) 0.2 (0-4) % Baso % (Auto) 0.3 (0-2) % Lymph # (Auto) 1.2 (1.2-4.9) X10*3/uL [place] # (Auto) 0.6 (0.1-1.2) X10*3/uL Eos # (Auto) 0.0 (0.0-0.4) X10*3/uL Baso # (Auto) 0.0 (0.0-0.2) X10*3/uL Abs Immat Gran (auto) 0.04 H (0.00-0.03) X10*3/uL Absolute Neuts (auto) 8.6 H (2.0-8.3) x10*3/uL Absolute Nucleated RBC 0.000 (0.0-0.012) X10*3/uL Nucleated RBC % (auto) 0.0 (0.0-0.2) /100WBC Sodium 141 (135-145) mmol/L Potassium 4.3 (3.3-5.1) mmol/L Chloride 107 (96-108) mmol/L Carbon Dioxide 26 (22-29) mmol/L Anion Gap 12 (12-20) BUN 58 H (9-16) mg/dL Creatinine 0.83 (0.5-1.4) mg/dL Estim Creat Clear Calc 34.3 Estimated GFR > 60 Random Glucose 132 H (60-115) mg/dL Calcium 9.3 (8.4-10.2) mg/dL Iron 226 H (30-160) mcg/dL TIBC 284 (228-428) mcg/dL % Saturation 80 H (15-50) % Unsat Iron Binding 58 ug/dL Troponin I High Sens < 2.7 (<3.5-17.0) ng/L B-Natriuretic Peptide 41 (<100) pg/mL Independent Interpretation I performed an independent interpretation of an: EKG Interpretation: Rate: 84 Rhythm: NSR with PVCs [place]: normal Normal P waves. Normal ROBERT. Normal QRS complex. ST T wave : inverted T waves V2, nonspecific ST T wave changes I, II, scooping segments in V4-V6 qTC: 387 prior studies: no priors The study has been interpreted contemporaneously by me. . Independent Historian Clinical information obtained from an independent historian. History obtained from or confirmed by: Other (daughter) External Record Review External record reviewed: Prior outpatient labs Discharge Plan Discharge Clinical Impression: Acute upper GI bleed Patient Disposition: Admitted As Inpatient
[2024-02-07 00:15] LABS: OBS Int Ctl Valid YES; OBS1 POSITIVE (NEGATIVE)
--- NOTE | 2024-02-07 00:28 | P.HPHOSP_ITS ---
History of Present Illness Date of Service: 02/07/24 Chief Complaint: GI bleed This is a 88-year-old female with pertinent history of essential hypertension, hypothyroidism, mood disorder, unspecified dementia, COPD not on home oxygen who presents to the emergency department for evaluation of generalized weakness. Patient states she has been fatigued for the last 3 days. No other complaints at this time. She states she never noticed her stools and does not know if it is dark or has blood in it. Also has associated dyspnea which is worse with exertion. No [id number] NSAIDs. Patient states she does not remember her last colonoscopy. Daughter also noticed that patient has been pale over the last 3-5 days. No fever, chills, chest discomfort, palpitations, abdominal pain, changes in urinary habits. In the emergency department, significant drop in hemoglobin noted. Stool occult blood noted to be positive Review of Systems 2 Constitutional: Constitutional: Reports fatigue, Reports lethargy, Reports malaise and Reports weakness Cardiovascular: Cardiovascular: Reports no additional cardiovascular complaints Respiratory: Respiratory: Reports no additional respiratory complaints Genitourinary: Genitourinary: Reports no additional female genitourinary complaints Neurologic: Reports weakness Psychiatric: Psychiatric: Reports no additional psychiatric complaints Endocrine: Endocrine: Reports fatigue [facility] Medical History Hypertension Hypothyroidism Dementia V-tach Pertinent family history: No family history of early CAD Social History Patient Tobacco Use Status: Tobacco use Unknown Advance Directives: No Advance Directives Information Provided: No Meds Allergies Allergy/AdvReac Type Severity Reaction Status Date / Time ENVIRONMENTAL Allergy Unknown COUGH Uncoded 02/06/24 22:36 Active Medications: Current Medications Acetaminophen (Acetaminophen 325 Mg Tablet) 650 mg PO Q6H PRN PRN Reason: Pain, Mild (Pain Scale 1-3) Acetaminophen (Acetaminophen Supp 650 Mg Supp.Rect) [address] Q6H PRN PRN Reason: Pain, Mild (Pain Scale 1-3) Melatonin (Melatonin 3 Mg Tablet) 6 mg PO BEDTIME PRN PRN Reason: Insomnia Ondansetron HCl (Ondansetron Hcl 4 Mg/2 Ml Vial) 4 mg IVPUSH Q8H PRN PRN Reason: Nausea and Vomiting Pantoprazole Sodium (Pantoprazole Sodium 40 Mg/10 Ml Vial) 40 mg IVPUSH ONCE ONE Stop: 02/07/24 00:29 Pantoprazole Sodium (Pantoprazole Sodium 40 Mg/10 Ml Vial) 40 mg IVPUSH BID@0630,1630 [facility] Sodium Chloride (0.9 % Sodium Chloride Flush 3 Ml Syringe) 3 ml IVFLUSH QSHIFT [place] Physical Exam 2 Vital Signs and Narrative: Vital Signs: Last Vital Signs Temp 97 F 02/06/24 22:30 Pulse 93 02/06/24 22:30 Resp 16 02/06/24 22:30 BP 106/53 L 02/06/24 22:30 Pulse Ox 100 02/06/24 22:30 O2 Del Method Room Air 02/06/24 22:30 BMI result Body Mass Index 23.2 Elderly female lying in bed in no distress Neck supple, no JVD Regular rate and rhythm, S1-S2 heard Regular breath sounds bilaterally, no wheezing or crackles appreciated Abdomen soft nontender, no guarding, no rigidity Patient is awake, alert and oriented to self, place, time and person ; no focal motor deficit Psych: Normal mood No pedal edema Results Labs 02/06/24 23:11 02/06/24 23:11 Labs: Laboratory Results - last 24 hr 02/06/24 02/07/24 23:11 00:06 MCV 93.5 MCH 32.5 MCHC 34.8 RDW 13.4 Plt Count 247 MPV 8.6 L Immature Gran % (Auto) 0.4 Neut % (Auto) 82.4 H Lymph % (Auto) 11.3 L [place] % (Auto) 5.4 Eos % (Auto) 0.2 Baso % (Auto) 0.3 Lymph # (Auto) 1.2 [place] # (Auto) 0.6 Eos # (Auto) 0.0 Baso # (Auto) 0.0 Abs Immat Gran (auto) 0.04 H Absolute Neuts (auto) 8.6 H Absolute Nucleated RBC 0.000 Nucleated RBC % (auto) 0.0 Anion Gap 12 Estim Creat Clear Calc 34.3 Estimated GFR > 60 Random Glucose 132 H Calcium 9.3 Iron 226 H TIBC 284 % Saturation 80 H Unsat Iron Binding 58 Troponin I High Sens < 2.7 B-Natriuretic Peptide 41 Stool Occult Blood POSITIVE Imaging Radiologist's Impressions: Impressions Chest X-Ray 02/06/24 22:53 IMPRESSION: Unremarkable examination. Assessment and Plan (1) Acute upper GI bleed: Status: Acute Plan This is a 88-year-old female with pertinent history of essential hypertension, hypothyroidism, mood disorder, unspecified dementia, COPD not on home oxygen who presents to the emergency department for evaluation of generalized weakness. #. Symptomatic anemia due to acute GI bleed: Will admit patient with cardiac monitoring. Hold aspirin. Initiated IV Protonix. Consulting Gastroenterology, appreciate assistance. Keep patient NPO. Close monitoring H&H #. Essential hypertension: Hold antihypertensives in the setting of GI bleed #. Hypothyroidism: On Synthroid #. Mood disorder: Continue home mood stabilizers #. Dementia, unspecified: On memantine. Maintain sleep-wake cycle #. COPD: No exacerbation during admission. Med rec pending DVT prophylaxis: Mechanical DNR/DNI. Discussed with daughter and patient at bedside Admit as inpatient and will require two night minimum hospital stay for close monitoring of hemodynamics, H and H (as above), which is not possible in a lesser acute setting. Specialist consult pending Quality Stroke Does the patient have a stroke diagnosis?: No VTE Prior VTE?: No VTE Risk Level:: Medical - moderate - high VTE Device Contraindication: N/A - Device Ordered VTE Drug Contraindication: Treatment Not Indicated
[2024-02-07] MEDS: Pantoprazole Sodium 40 MG/10 ML VIAL IVPUSH ×3 (00:54→16:03)
[2024-02-07] MEDS: Lactated Ringers 1,000 ML 999 ML IV (01:03)
[2024-02-07 01:16] LABS: Folate 8.5 ng/mL (> or = 4.0)
[2024-02-07 01:48] LABS: Vitamin B12 208 pg/mL (200-900)
[2024-02-07 06:24] LABS: MANUAL DIFF FLAG NO
[2024-02-07 06:42] LABS: Anion Gap 11 (12-20); Blood Urea Nitrogen 45 mg/dL (9-16); Calcium 8.7 mg/dL (8.4-10.2); Carbon Dioxide 25 mmol/L (22-29); Chloride 111 mmol/L (96-108); Creatinine Clr Calc Pharmacy 40.6; Estimated Glomerular Filt Rate > 60; Glucose Random 107 mg/dL (60-115); Sodium 143 mmol/L (135-145)
[2024-02-07 07:01] LABS: Basophils Percent Auto 0.5 % (0-2); Eosinophils Percent Auto 0.2 % (0-4); Imm Gran Abs Auto 0.04 X10*3/uL (0.00-0.03); Imm Gran Pct Auto 0.5 % (0.0-0.4); Lymphocytes Absolute Auto 1.7 X10*3/uL (1.2-4.9); Lymphocytes Percent Auto 19.6 % (20-40); Mean Corpuscular HGB Conc 33.7 g/dl (31.0-35.0); Mean Corpuscular Hemoglobin 32.2 pg (27.0-33.0); Mean Corpuscular Volume 95.5 fL (80.0-98.0); Mean Platelet Volume 9.1 fL (9.4-12.3); Monocytes Absolute Auto 0.6 X10*3/uL (0.1-1.2); Monocytes Percent Auto 6.8 % (2-11); Neutrophils Absolute Auto 6.1 x10*3/uL (2.0-8.3); Neutrophils Percent Auto 72.4 % (45-73); Platelet Count 206 X10*3/uL (160-400); Red Blood Count 2.02 X10*6/uL (4.20-5.50); Red Cell Distribution Width 13.5 % (11.0-16.0); White Blood Count 8.4 X10*3/uL (4.8-10.8)
[2024-02-07 07:04] LABS: Hematocrit 19.3 % (37.0-47.0); Hemoglobin 6.5 g/dl (12.0-16.0)
--- NOTE | 2024-02-07 07:33 | PHA.MEDREC ---
Pharmacy Consult ? Medication Reconciliation Pharmacy has completed the medication reconciliation.Med rec complete, spoke to patients daughter and compared with pharmacy claim history. Daughter states memantine is 10 mg in morning and 5 mg at night.
--- NOTE | 2024-02-07 08:53 | PM.EVENT ---
Event Note Date of Service: 02/07/24 Event Note: GI consult dictated EGD today for evaluation of gi bleeding. Pt and daughter aware of risks and benefits and agree to proceed. Time Spent With Patient Time: Total time managing care of this patient today ____ minutes.
[2024-02-07] MEDS: Tiotropium Bromide 2.5 mcg 1 PUFF/2.5 MCG MIST.INHAL INHALE (09:36)
--- NOTE | 2024-02-07 10:18 | CONS_ITS ---
DATE OF SERVICE: 02/07/2024 REFERRING PHYSICIAN: Dr. Moeller REASON FOR CONSULTATION: GI bleeding. HISTORY OF PRESENT ILLNESS: The patient is a pleasant 88-year-old woman who was admitted to the hospital after presenting to the emergency room with complaints of weakness over 3 days prior to admission. The patient has a history of dementia and the history is limited. There have been no reports of rectal bleeding, and she denies abdominal pain. In the emergency department, she was evaluated with laboratory studies showing a hematocrit of 23, which was significantly lower than her last hematocrit in December. Rectal examination was performed and is reported as showing dark stool, which on occult blood testing was positive. The patient denies a prior history of peptic ulcer disease. She has been on 81 mg of aspirin for unspecified cardiac arrhythmias. She denies abdominal pain. Previous evaluation with endoscopy in 2018 at the time of ERCP showed mild gastritis and tests for H pylori were negative. PAST MEDICAL HISTORY: 1. Hypertension. 2. Hypothyroidism. 3. Dementia/mood disorder. 4. COPD. 5. Gastritis as above. 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 7. Ventricular tachycardia. CURRENT MEDICATIONS: Her current medication list is reviewed in the chart. ALLERGIES: THERE ARE NO REPORTED DRUG ALLERGIES. FAMILY HISTORY: This is reviewed in the electronic medical record and is noncontributory. SOCIAL HISTORY: There is no current tobacco, alcohol, or substance abuse. REVIEW OF SYSTEMS: This is not reliably obtainable. PHYSICAL EXAMINATION: GENERAL: Shows a pleasant female, lying on a stretcher. VITAL SIGNS: Reviewed on the electronic medical record and are stable. SKIN: Anicteric. HEENT: Shows no scleral icterus. NECK: Without lymphadenopathy or thyromegaly. LUNGS: Clear. HEART: Shows a regular rate and rhythm. S1, S2. No murmur. ABDOMEN: Soft without focal masses or tenderness. Bowel sounds are present. No organomegaly is noted. EXTREMITIES: Without edema. LABORATORY DATA: Reviewed. IMPRESSION: Gastrointestinal bleeding. We discussed endoscopy today including risks and benefits of the procedure. This was discussed with the patient and her daughter. This will be arranged for later today. I agreed with treating her with a proton pump inhibitor and holding her aspirin for the time being. Thanks for asking me to see her. I will follow her in the hospital with you. MD MARITZA Cason/SIVAN / [phone]
--- NOTE | 2024-02-07 10:50 | MHC.CM.PN ---
Met with patient in regards to discharge planning. Patient lives alone, ambulates independently and had no services prior to coming to the hospital. Patient still drives and is fairly independent at baseline. PCP verified. Patient believes she has a HCP at Dr Carpenter's office. T/W has requested a copy of his office. Patient received 4 Pfizer vaccines. Patient denies the need for any services at d/c because her daughter, Terri, is a nurse. IMM explained and signed. Terri will transport patient home when medically stable. Continue to monitor for d/c needs.
--- NOTE | 2024-02-07 11:42 | P.PNIM_ITS ---
Subjective Subjective Date of Service: 02/07/24 Interval History: no complaints Physical Exam 2 Vital Signs: Vital Signs: Last Vital Signs Temp 98.4 F 02/07/24 10:44 Pulse 80 02/07/24 10:44 Resp 17 02/07/24 10:44 BP 121/57 L 02/07/24 10:44 Pulse Ox 94 02/07/24 05:48 O2 Del Method Room Air 02/07/24 05:48 BMI result Body Mass Index 23.2 General: AO X 3, no acute distress Resp: CTA bilateral, no accessory muscles used CVS: S1,S2,RRR GI: soft, non tender, non distended Neuro: motor grossly intact, alert Psych: appropriate affect, appropriate insight Objective Data Active Medications Acetaminophen (Acetaminophen 325 Mg Tablet) 650 mg PO Q6H PRN PRN Reason: Pain, Mild (Pain Scale 1-3) Acetaminophen (Acetaminophen Supp 650 Mg Supp.Rect) 650 mg ND Q6H PRN PRN Reason: Pain, Mild (Pain Scale 1-3) Levothyroxine Sodium (Levothyroxine Sodium 75 Mcg Tablet) 75 mcg PO DAILY@0600 [facility] Last Admin: 02/07/24 10:16 Dose: Not Given Documented By: PASQUALE Non-Admin Reason: NPO Melatonin (Melatonin 3 Mg Tablet) 6 mg PO BEDTIME PRN PRN Reason: Insomnia Memantine (Memantine Hcl 10 Mg Tablet) 10 mg PO DAILY [facility] Last Admin: 02/07/24 10:16 Dose: Not Given Documented By: PASQUALE Non-Admin Reason: NPO Memantine (Memantine Hcl 5 Mg Tablet) 5 mg PO BEDTIME [facility] Metoprolol Succinate (Metoprolol Succinate Er 12.5 Mg Halftab.Er.24h) 12.5 mg PO DAILY [facility]; Protocol Last Admin: 02/07/24 10:16 Dose: Not Given Documented By: PASQUALE Non-Admin Reason: NPO Ondansetron HCl (Ondansetron Hcl 4 Mg/2 Ml Vial) 4 mg IVPUSH Q8H PRN PRN Reason: Nausea and Vomiting Pantoprazole Sodium (Pantoprazole Sodium 40 Mg/10 Ml Vial) 40 mg IVPUSH BID@0630,1630 [facility] Last Admin: 02/07/24 06:25 Dose: 40 mg Documented By: PASQUALE Sodium Chloride (0.9 % Sodium Chloride Flush 3 Ml Syringe) 3 ml IVFLUSH QSHIFT [facility] Last Admin: 02/07/24 10:16 Dose: Not Given Documented By: PASQUALE Non-Admin Reason: Previously Administered Tiotropium [place] (Tiotropium [place] 2.5 Mcg 1 Puff/2.5 Mcg Mist.Inhal) 1 puff INHALE DAILY [facility] Last Admin: 02/07/24 09:36 Dose: 1 puff Documented By: BATSHEVA Venlafaxine HCl (Venlafaxine Hcl Er 75 Mg Cap.Er.24h) 75 mg PO DAILY [facility] Last Admin: 02/07/24 10:16 Dose: Not Given Documented By: PASQUALE Non-Admin Reason: NPO Labs 02/07/24 05:42 02/07/24 05:42 Labs: Laboratory Results - last 24 hr 02/06/24 02/07/24 02/07/24 23:11 00:06 05:42 MCV 93.5 95.5 MCH 32.5 32.2 MCHC 34.8 33.7 RDW 13.4 13.5 Plt Count 247 206 MPV 8.6 L 9.1 L Immature Gran % (Auto) 0.4 0.5 H Neut % (Auto) 82.4 H 72.4 Lymph % (Auto) 11.3 L 19.6 L [place] % (Auto) 5.4 6.8 Eos % (Auto) 0.2 0.2 Baso % (Auto) 0.3 0.5 Lymph # (Auto) 1.2 1.7 [place] # (Auto) 0.6 0.6 Eos # (Auto) 0.0 0.0 Baso # (Auto) 0.0 0.0 Abs Immat Gran (auto) 0.04 H 0.04 H Absolute Neuts (auto) 8.6 H 6.1 Absolute Nucleated RBC 0.000 0.000 Nucleated RBC % (auto) 0.0 0.0 Smear Path Review SEE NOTE Anion Gap 12 11 L Estim Creat Clear Calc 34.3 40.6 Estimated GFR > 60 > 60 Random Glucose 132 H 107 Calcium 9.3 8.7 D Iron 226 H TIBC 284 % Saturation 80 H Unsat Iron Binding 58 Troponin I High Sens < 2.7 B-Natriuretic Peptide 41 Vitamin B12 208 Folate 8.5 Stool Occult Blood POSITIVE Blood Type O Positive Antibody Screen NEGATIVE Crossmatch See Detail Assessment and Plan (1) Acute upper GI bleed: Status: Acute Plan 88F PMH htn, hypothryoid, alzheimers dementia, mood disorder, copd, presented with weakness, found to have anemia Acute blood loss anemia secondary to suspected GI bleed A PPI, transfuse 1 unit PRBC, monitor CBC, plan for EGD today Hypertension Holding meds with low-normal these Hypothyroid Synthroid Alzheimer's dementia Memantine COPD Stable Continue Spiriva Mood disorder Venlafaxine dvt prophylaxis - mechanical due to GI bleed dnr/dni reason for continued hospitalization:plan for egd, giving blood, close monitoring Quality Stroke Does the patient have a stroke diagnosis?: No VTE Prior VTE?: No VTE Risk Level:: Medical - moderate - high VTE Device Contraindication: N/A - Device Ordered VTE Drug Contraindication: Treatment Not Indicated
--- NOTE | 2024-02-07 14:07 | HO.ANESPROP2 ---
[facility] Active Problems Active Problems: All Active Problems (Updated 02/07/24 @ 00:26 by Aissatou Witt DO) Acute upper GI bleed (Acute) Past Medical History Medical History Hypertension Hypothyroidism Dementia V-tach Family History Family history of problems with anesthesia: No Surgical History History of Problems with Anesthesia: No Social History Social History Patient Tobacco Use Status: Former Tobacco user Second Hand Smoke Exposure: No service: No Meds Allergies Allergy/AdvReac Type Severity Reaction Status Date / Time ENVIRONMENTAL Allergy Unknown COUGH Uncoded 02/06/24 22:36 Active Medications: Current Medications Acetaminophen (Acetaminophen 325 Mg Tablet) 650 mg PO Q6H PRN PRN Reason: Pain, Mild (Pain Scale 1-3) Acetaminophen (Acetaminophen Supp 650 Mg Supp.Rect) 650 mg NE Q6H PRN PRN Reason: Pain, Mild (Pain Scale 1-3) Levothyroxine Sodium (Levothyroxine Sodium 75 Mcg Tablet) 75 mcg PO DAILY@0600 [facility] Last Admin: 02/07/24 10:16 Dose: Not Given Melatonin (Melatonin 3 Mg Tablet) 6 mg PO BEDTIME PRN PRN Reason: Insomnia Memantine (Memantine Hcl 10 Mg Tablet) 10 mg PO DAILY [facility] Last Admin: 02/07/24 10:16 Dose: Not Given Memantine (Memantine Hcl 5 Mg Tablet) 5 mg PO BEDTIME [facility] Metoprolol Succinate (Metoprolol Succinate Er 12.5 Mg Halftab.Er.24h) 12.5 mg PO DAILY [facility]; Protocol Last Admin: 02/07/24 10:16 Dose: Not Given Ondansetron HCl (Ondansetron Hcl 4 Mg/2 Ml Vial) 4 mg IVPUSH Q8H PRN PRN Reason: Nausea and Vomiting Pantoprazole Sodium (Pantoprazole Sodium 40 Mg/10 Ml Vial) 40 mg IVPUSH BID@0630,1630 [facility] [place] Last Admin: 02/07/24 06:25 Dose: 40 mg Sodium Chloride (0.9 % Sodium Chloride Flush 3 Ml Syringe) 3 ml IVFLUSH QSHIFT [facility] Last Admin: 02/07/24 10:16 Dose: Not Given Tiotropium [place] (Tiotropium [place] 2.5 Mcg 1 Puff/2.5 Mcg Mist.Inhal) 1 puff INHALE DAILY [facility] Last Admin: 02/07/24 09:36 Dose: 1 puff Venlafaxine HCl (Venlafaxine Hcl Er 75 Mg Cap.Er.24h) 75 mg PO DAILY [facility] Last Admin: 02/07/24 10:16 Dose: Not Given Home Medications Medication Instructions Recorded Confirmed Last Taken Type amlodipine 2.5 mg tablet 2.5 mg PO DAILY 02/07/24 02/07/24 02/06/24 History aspirin 81 mg tablet,delayed 162 mg PO DAILY 02/07/24 02/07/24 02/06/24 History release levothyroxine 75 mcg tablet 75 mcg PO DAILY 02/07/24 02/07/24 02/06/24 History memantine 10 mg tablet 10 mg PO DAILY 02/07/24 02/07/24 02/06/24 History memantine 5 mg tablet 5 mg PO BEDTIME 02/07/24 02/07/24 02/06/24 History metoprolol succinate 25 mg 12.5 mg PO DAILY 02/07/24 02/07/24 02/06/24 History tablet,extended release 24 hr tiotropium bromide 1.25 1 puff inhalation DAILY 02/07/24 02/07/24 02/06/24 History mcg/actuation mist for inhalation (Spiriva Respimat) venlafaxine 75 mg capsule,extended 75 mg PO DAILY 02/07/24 02/07/24 02/06/24 History release 24 hr Exam Height,Weight and Vital Signs: Height 5 ft Weight 53.977 kg Last Vital Signs Temp 98.0 F 02/07/24 13:32 Pulse 92 02/07/24 13:32 Resp 16 02/07/24 13:32 BP 124/51 L 02/07/24 13:32 Pulse Ox 97 02/07/24 13:32 O2 Del Method Room Air 02/07/24 13:32 Pertinent Lab Results Pertinent Lab Results: Laboratory Tests 02/06/24 02/07/24 02/07/24 23:11 00:06 05:42 WBC 10.4 8.4 RBC 2.46 L D 2.02 L Hgb 8.0 L D 6.5 L* Hct 23.0 L D 19.3 L* MCV 93.5 95.5 MCH 32.5 32.2 MCHC 34.8 33.7 RDW 13.4 13.5 Plt Count 247 206 MPV 8.6 L 9.1 L Immature Gran % (Auto) 0.4 0.5 H Neut % (Auto) 82.4 H 72.4 Lymph % (Auto) 11.3 L 19.6 L [place] % (Auto) 5.4 6.8 Eos % (Auto) 0.2 0.2 Baso % (Auto) 0.3 0.5 Lymph # (Auto) 1.2 1.7 [place] # (Auto) 0.6 0.6 Eos # (Auto) 0.0 0.0 Baso # (Auto) 0.0 0.0 Abs Immat Gran (auto) 0.04 H 0.04 H Absolute Neuts (auto) 8.6 H 6.1 Absolute Nucleated RBC 0.000 0.000 Nucleated RBC % (auto) 0.0 0.0 Smear Path Review SEE NOTE Sodium 141 143 Potassium 4.3 4.0 Chloride 107 111 H Carbon Dioxide 26 25 Anion Gap 12 11 L BUN 58 H 45 H Creatinine 0.83 0.70 Estim Creat Clear Calc 34.3 40.6 Estimated GFR > 60 > 60 Random Glucose 132 H 107 Calcium 9.3 8.7 D Iron 226 H TIBC 284 % Saturation 80 H Unsat Iron Binding 58 Troponin I High Sens < 2.7 B-Natriuretic Peptide 41 Vitamin B12 208 Folate 8.5 Stool Occult Blood POSITIVE Blood Type O Positive Antibody Screen NEGATIVE Crossmatch See Detail Airway Mallampati Class: II (lower all implants ) TM Dist: >3cm Neck ROM: Full Denture: Upper Heart: rrr Lungs: cta Assessment and Plan Assessment Anesthesia Assessment: Anesthesia Plan Discussed and Chart Reviewed Final Anesthetic Review Family History of Problems with Anesthesia: No History of Problems with Anesthesia: No NPO: Yes ASA Class: III Final Preanesthetic Review: No Changes in Pt Med Stat, Meds/Allgs Chart Reviewed and Consent Obtained/Reviewed Patient Risk: Intermediate Procedure Risk: Intermediate Anesthetic Plan Anesthetic Plan: MAC: Disposition: Standard PACU
--- NOTE | 2024-02-07 14:40 | MHC.SHP ---
Pre-Procedural Eval Section A - 24 Hr Update-Section A only Date of Service: 02/07/24 The patient is an INPATIENT: Yes Changes since office visit: No Cold of Flu in the past 2 weeks, No New Medical Problems, No Changes in Medication and No Patient answered all questions The patient has been examined within 24 hours of the surgical procedure. The History & Physical has been completed within 30 days and I have reviewed it.: Yes Section B - Complete if H&P > 30 days Chief Complaint: GI bleed Allergies: Allergies Allergy/AdvReac Type Severity Reaction Status Date / Time ENVIRONMENTAL Allergy Unknown COUGH Uncoded 02/06/24 22:36 Plan I have reviewed the history and physical and performed a pertinent physical examination on my patient. No changes have occurred unless specified. Time Spent With Patient Time: Total time managing care of this patient today ____ minutes.
[2024-02-07 14:48] LABS: Glucose, Whole Blood 104 mg/dL (60-115)
--- NOTE | 2024-02-07 15:25 | PM.EVENT ---
Event Note Date of Service: 02/07/24 Event Note: EGD active bleeding from a 10mm pyloric channel ulcer treated with epi and gold probe cautery. Rec iv pantoprazole cont infusion no nsaids transfuse 1 more unit of prbcs clear liquids for now. Time Spent With Patient Time: Total time managing care of this patient today ____ minutes.
--- NOTE | 2024-02-07 15:28 | P.BOP_ITS ---
Brief Operative Note Date of Service: 02/07/24 Pre-op diagnosis: gi bleed Post-op diagnosis: same Procedure: egd Surgeon: Sharad Rodriguez MD Anesthesia: MAC Was an Lead Handler used for this Procedure?: No Estimated blood loss (mL): 5 Pathology: other Condition: stable Disposition: PACU
[2024-02-07] MEDS: ondansetron HCL 4 MG/2 ML VIAL IVPUSH (15:47)
--- NOTE | 2024-02-07 15:55 | OP_ITS ---
DATE OF SERVICE: 02/07/2024 SURGEON: Sharad Rodriguez MD INDICATIONS: Upper GI bleeding. PREOPERATIVE DIAGNOSIS: POSTOPERATIVE DIAGNOSIS: PROCEDURE PERFORMED: Upper endoscopy with control of hemorrhage and biopsy. ESTIMATED BLOOD LOSS: COMPLICATIONS: ANESTHESIA: Monitored anesthesia care. ASSISTANTS: SPECIMENS: DESCRIPTION OF PROCEDURE: A history and physical was performed. The risks and benefits of the procedure were explained to the patient and her daughter, and informed consent was obtained. The patient was placed in the left lateral decubitus position. The Olympus video gastroscope was introduced into the esophagus, stomach, and duodenum. Examination was performed and the scope was removed. She tolerated the procedure well and was returned to the recovery area in stable condition. FINDINGS: Esophagus: The esophagus was normal. There was no esophagitis. Stomach: The stomach showed fresh blood and active bleeding from a pyloric channel. Ulcer measuring approximately 10 mm on the anterior wall of the pylorus. A second clean-based ulcer was identified on the posterior wall in the proximal antrum. The bleeding ulcer was treated with epinephrine 3 mL (1:10,000) injected submucosally in the vicinity of the ulcer with good mucosal blanching. The visible vessel that was bleeding was cauterized using the gold probe with no bleeding at the termination of the procedure. Antral biopsies were obtained to evaluate for H pylori. Duodenum: The bulb and second portion were normal. IMPRESSION: Upper gastrointestinal bleeding from pyloric channel ulcer. RECOMMENDATIONS: 1. IV Protonix, continuous infusion. 2. Clear liquids today. 3. Follow up the biopsy results. MD MARITZA Cason/MODL / [id number]
[2024-02-07] MEDS: 0.9 % Sodium Chloride Flush 3 ML SYRINGE IVFLUSH ×2 (17:12→20:51)
[2024-02-07] MEDS: Pantoprazole Sodium 80 MG in 0.9 % Sodium Chloride 80 ML 10 MG IV (18:18)
[2024-02-07] MEDS: Memantine HCl 5 MG TABLET PO (20:48)
[2024-02-07] MEDS: Melatonin 3 MG TABLET PO (20:51)
[2024-02-08] VITALS (10 sets, daily range): BP systolic 117–132; BP diastolic 51–62; PULSE 67–96; RESP 16–20; TEMP 36–37.6; O2SAT 92–99
[2024-02-08] MEDS: Pantoprazole Sodium 80 MG in 0.9 % Sodium Chloride 80 ML 10 MG IV (02:41)
[2024-02-08] MEDS: Levothyroxine Sodium 75 MCG TABLET PO (06:27)
[2024-02-08 07:19] LABS: Anion Gap 10 (12-20); Blood Urea Nitrogen 26 mg/dL (9-16); Calcium 8.3 mg/dL (8.4-10.2); Carbon Dioxide 23 mmol/L (22-29); Chloride 113 mmol/L (96-108); Creatinine Clr Calc Pharmacy 41.1; Estimated Glomerular Filt Rate > 60; Glucose Fasting 105 mg/dL (60-99); Potassium 3.9 mmol/L (3.3-5.1); Sodium 142 mmol/L (135-145)
[2024-02-08 07:23] LABS: Hematocrit 22.8 % (37.0-47.0); Mean Corpuscular HGB Conc 35.1 g/dl (31.0-35.0); Mean Corpuscular Hemoglobin 32.4 pg (27.0-33.0); Mean Corpuscular Volume 92.3 fL (80.0-98.0); Mean Platelet Volume 9.4 fL (9.4-12.3); Platelet Count 153 X10*3/uL (160-400); Red Blood Count 2.47 X10*6/uL (4.20-5.50); Red Cell Distribution Width 14.7 % (11.0-16.0); White Blood Count 16.2 X10*3/uL (4.8-10.8)
[2024-02-08] MEDS: Tiotropium Bromide 2.5 mcg 1 PUFF/2.5 MCG MIST.INHAL INHALE (08:22)
--- NOTE | 2024-02-08 08:34 | P.PNGI_ITS ---
Subjective Subjective Date of Service: 02/08/24 Interval History: tolerating clear liquids no reported bleeding per nursing Critical Care Time (minutes): 0 Physical Exam 2 Vital Signs: Vital Signs: Last Vital Signs Temp 98.5 F 02/08/24 07:06 Pulse 96 02/08/24 08:23 Resp 18 02/08/24 08:23 BP 121/59 L 02/08/24 07:06 Pulse Ox 99 02/08/24 07:06 O2 Del Method Nasal Cannula 02/08/24 07:06 O2 Flow Rate 3 02/08/24 07:06 BMI result Body Mass Index 23.7 GI: Other: abdomen is soft and nontender Objective Data Labs 02/08/24 06:33 02/08/24 06:33 Labs: Laboratory Results - last 24 hr 02/07/24 02/07/24 02/07/24 00:06 05:42 14:41 WBC RBC Hgb Hct MCV MCH MCHC RDW Plt Count MPV Absolute Nucleated RBC Nucleated RBC % (auto) Smear Path Review SEE NOTE Sodium Potassium Chloride Carbon Dioxide Anion Gap BUN Creatinine Estim Creat Clear Calc Estimated GFR POC Glucose 104 Fasting Glucose Calcium Blood Type O Positive Antibody Screen NEGATIVE Crossmatch See Detail 02/08/24 06:33 WBC 16.2 H RBC 2.47 L D Hgb 8.0 L D Hct 22.8 L MCV 92.3 MCH 32.4 MCHC 35.1 H RDW 14.7 Plt Count 153 L D MPV 9.4 Absolute Nucleated RBC 0.000 Nucleated RBC % (auto) 0.0 Smear Path Review Sodium 142 Potassium 3.9 Chloride 113 H Carbon Dioxide 23 Anion Gap 10 L BUN 26 H Creatinine 0.75 Estim Creat Clear Calc 41.1 Estimated GFR > 60 POC Glucose Fasting Glucose 105 H Calcium 8.3 L Blood Type Antibody Screen Crossmatch Procedures Date of Service Date of Service: 02/08/24 Progress Note: A&P Assessment and plan (1) Acute upper GI bleed: Status: Acute Assessment and Plan: doing well s/p endoscopy for bleeding ulcer pantoprazole iv bid advance diet. monitor hct she will need repeat egd in 8-12 weeks for f/u of gastric ulcers. Time Spent With Patient Time: Total time managing care of this patient today ____ minutes. Quality Stroke Does the patient have a stroke diagnosis?: No VTE Prior VTE?: No VTE Risk Level:: Medical - moderate - high VTE Device Contraindication: N/A - Device Ordered VTE Drug Contraindication: Treatment Not Indicated
[2024-02-08] MEDS: Metoprolol Succinate ER 12.5 MG HALFTAB.ER.24H PO (08:46)
[2024-02-08] MEDS: Memantine HCl 10 MG TABLET PO (08:47)
[2024-02-08] MEDS: 0.9 % Sodium Chloride Flush 3 ML SYRINGE IVFLUSH ×3 (08:47→20:02)
[2024-02-08] MEDS: Venlafaxine HCl ER 75 MG CAP.ER.24H PO (08:47)
--- NOTE | 2024-02-08 09:45 | P.PNIM_ITS ---
Subjective Subjective Date of Service: 02/08/24 Interval History: no complaints Physical Exam 2 Vital Signs: Vital Signs: Last Vital Signs Temp 98.5 F 02/08/24 07:06 Pulse 96 02/08/24 08:23 Resp 18 02/08/24 08:23 BP 121/59 L 02/08/24 07:06 Pulse Ox 99 02/08/24 07:06 O2 Del Method Nasal Cannula 02/08/24 07:06 O2 Flow Rate 3 02/08/24 07:06 BMI result Body Mass Index 23.7 GI: Other: abdomen is soft and nontender Objective Data Active Medications Acetaminophen (Acetaminophen 325 Mg Tablet) 650 mg PO Q6H PRN PRN Reason: Pain, Mild (Pain Scale 1-3) Acetaminophen (Acetaminophen Supp 650 Mg Supp.Rect) 650 mg [place] Q6H PRN PRN Reason: Pain, Mild (Pain Scale 1-3) Levothyroxine Sodium (Levothyroxine Sodium 75 Mcg Tablet) 75 mcg PO DAILY@0600 [facility] Last Admin: 02/08/24 06:27 Dose: 75 mcg Documented By: PAUL Melatonin (Melatonin 3 Mg Tablet) 3 mg PO BEDTIME PRN PRN Reason: Insomnia Last Admin: 02/07/24 20:51 Dose: 3 mg Documented By: SRINIVAS Memantine (Memantine Hcl 10 Mg Tablet) 10 mg PO DAILY [facility] Last Admin: 02/08/24 08:47 Dose: 10 mg Documented By: ELIZABETH Memantine (Memantine Hcl 5 Mg Tablet) 5 mg PO BEDTIME [facility] Last Admin: 02/07/24 20:48 Dose: 5 mg Documented By: SRINIVAS Metoprolol Succinate (Metoprolol Succinate Er 12.5 Mg Halftab.Er.24h) 12.5 mg PO DAILY [facility]; Protocol Last Admin: 02/08/24 08:46 Dose: 12.5 mg Documented By: ELIZABETH Ondansetron HCl (Ondansetron Hcl 4 Mg/2 Ml Vial) 4 mg IVPUSH Q8H PRN PRN Reason: Nausea and Vomiting Pantoprazole Sodium (Pantoprazole Sodium 40 Mg/10 Ml Vial) 40 mg IVPUSH BID@0630,1630 [facility] Sodium Chloride (0.9 % Sodium Chloride Flush 3 Ml Syringe) 3 ml IVFLUSH QSHIFT [facility] Last Admin: 02/08/24 08:47 Dose: 3 ml Documented By: ELIZABETH Tiotropium [place] (Tiotropium [place] 2.5 Mcg 1 Puff/2.5 Mcg Mist.Inhal) 1 puff INHALE DAILY [facility] Last Admin: 02/08/24 08:22 Dose: 1 puff Documented By: ZBIGNIEW Venlafaxine HCl (Venlafaxine Hcl Er 75 Mg Cap.Er.24h) 75 mg PO DAILY [facility] Last Admin: 02/08/24 08:47 Dose: 75 mg Documented By: ELIZABETH Labs 02/08/24 06:33 02/08/24 06:33 Labs: Laboratory Results - last 24 hr 02/07/24 02/07/24 02/07/24 00:06 05:42 14:41 MCV MCH MCHC RDW Plt Count MPV Absolute Nucleated RBC Nucleated RBC % (auto) Smear Path Review SEE NOTE Anion Gap Estim Creat Clear Calc Estimated GFR POC Glucose 104 Fasting Glucose Calcium Blood Type O Positive Antibody Screen NEGATIVE Crossmatch See Detail 02/08/24 06:33 MCV 92.3 MCH 32.4 MCHC 35.1 H RDW 14.7 Plt Count 153 L D MPV 9.4 Absolute Nucleated RBC 0.000 Nucleated RBC % (auto) 0.0 Smear Path Review Anion Gap 10 L Estim Creat Clear Calc 41.1 Estimated GFR > 60 POC Glucose Fasting Glucose 105 H Calcium 8.3 L Blood Type Antibody Screen Crossmatch Assessment and Plan (1) Acute upper GI bleed: Status: Acute Plan 88F PMH htn, hypothryoid, alzheimers dementia, mood disorder, copd, presented with weakness, found to have anemia Acute blood loss anemia secondary to bleeding pyloric ulcer s/p 2 units prbc, hgb improved appropriately s/p EGD and local epi 02/07/24 changed to iv protonix bid solid diet monitor cbc dced asa Hypertension Holding meds with low-normal these Hypothyroid Synthroid Alzheimer's dementia Memantine COPD Stable Continue Spiriva Mood disorder Venlafaxine dvt prophylaxis - mechanical due to GI bleed dnr/dni reason for continued hospitalization: close monitoring - bleeding ulcer Quality Stroke Does the patient have a stroke diagnosis?: No VTE Prior VTE?: No VTE Risk Level:: Medical - moderate - high VTE Device Contraindication: N/A - Device Ordered VTE Drug Contraindication: Treatment Not Indicated
--- NOTE | 2024-02-08 13:55 | HO.POSTANES ---
Post Anesthesia Evaluation Post Anesthesia Evaluation Date of Service: 02/08/24 Vital Signs: Vital Signs Temp Pulse Resp BP Pulse Ox O2 Del Method O2 Flow Rate 02/08/24 10:50 97.6 F 87 18 118/55 L 94 Room Air 02/08/24 08:23 96 18 02/08/24 07:06 98.5 F 77 20 121/59 L 99 Nasal Cannula 3 02/08/24 03:23 98.9 F 93 18 132/60 97 Nasal Cannula 3 Anesthesia: Monitored Mental Status: Awake Pain Control: Satisfactory Nausea/Vomiting: None Hydration: Adequate Anesthesia-Related Issues: No Anes. Related Issues
[2024-02-08] MEDS: Pantoprazole Sodium 40 MG/10 ML VIAL IVPUSH (15:42)
[2024-02-08] MEDS: Melatonin 3 MG TABLET PO (20:02)
[2024-02-08] MEDS: Memantine HCl 5 MG TABLET PO (20:02)
[2024-02-08] MEDS: Acetaminophen 325 MG TABLET 650 MG PO (20:08)
[2024-02-09] VITALS (10 sets, daily range): BP systolic 103–127; BP diastolic 43–76; PULSE 71–100; RESP 16–18; TEMP 36.4–37.2; O2SAT 90–95
[2024-02-09] MEDS: Levothyroxine Sodium 75 MCG TABLET PO (06:04)
[2024-02-09] MEDS: Pantoprazole Sodium 40 MG/10 ML VIAL IVPUSH ×2 (06:04→15:39)
[2024-02-09 06:09] LABS: Hematocrit 22.2 % (37.0-47.0); Hemoglobin 7.6 g/dl (12.0-16.0); Mean Corpuscular HGB Conc 34.2 g/dl (31.0-35.0); Mean Corpuscular Hemoglobin 32.1 pg (27.0-33.0); Mean Corpuscular Volume 93.7 fL (80.0-98.0); Mean Platelet Volume 9.3 fL (9.4-12.3); Platelet Count 153 X10*3/uL (160-400); Red Blood Count 2.37 X10*6/uL (4.20-5.50); Red Cell Distribution Width 14.6 % (11.0-16.0); White Blood Count 11.4 X10*3/uL (4.8-10.8)
[2024-02-09 06:17] LABS: Anion Gap 10 (12-20); Blood Urea Nitrogen 15 mg/dL (9-16); Calcium 8.5 mg/dL (8.4-10.2); Carbon Dioxide 27 mmol/L (22-29); Chloride 108 mmol/L (96-108); Creatinine Clr Calc Pharmacy 38.5; Estimated Glomerular Filt Rate > 60; Glucose Fasting 95 mg/dL (60-99); Potassium 3.5 mmol/L (3.3-5.1); Sodium 141 mmol/L (135-145)
[2024-02-09] MEDS: Tiotropium Bromide 2.5 mcg 1 PUFF/2.5 MCG MIST.INHAL INHALE (08:10)
[2024-02-09] MEDS: Metoprolol Succinate ER 12.5 MG HALFTAB.ER.24H PO (08:42)
[2024-02-09] MEDS: Venlafaxine HCl ER 75 MG CAP.ER.24H PO (08:42)
[2024-02-09] MEDS: 0.9 % Sodium Chloride Flush 3 ML SYRINGE IVFLUSH ×3 (08:43→21:37)
[2024-02-09] MEDS: Memantine HCl 10 MG TABLET PO (08:43)
--- NOTE | 2024-02-09 08:59 | P.PNIM_ITS ---
Subjective Subjective Date of Service: 02/09/24 Interval History: no complaints Physical Exam 2 Vital Signs: Vital Signs: Last Vital Signs Temp 97.5 F 02/09/24 07:17 Pulse 84 02/09/24 07:17 Resp 18 02/09/24 07:17 BP 116/43 L 02/09/24 07:17 Pulse Ox 90 L 02/09/24 07:39 O2 Del Method Room Air 02/09/24 07:39 O2 Flow Rate 3 02/08/24 07:06 BMI result Body Mass Index 23.7 GI: Other: abdomen is soft and nontender Objective Data Active Medications Acetaminophen (Acetaminophen 325 Mg Tablet) 650 mg PO Q6H PRN PRN Reason: Pain, Mild (Pain Scale 1-3) Last Admin: 02/08/24 20:08 Dose: 650 mg Documented By: FLORA Acetaminophen (Acetaminophen Supp 650 Mg Supp.Rect) 650 mg [place] Q6H PRN PRN Reason: Pain, Mild (Pain Scale 1-3) Sodium Chloride (Ns) 100 mls @ 100 mls/hr IV ONCE ONE Stop: 02/09/24 09:57 Levothyroxine Sodium (Levothyroxine Sodium 75 Mcg Tablet) 75 mcg PO DAILY@0600 [facility] Last Admin: 02/09/24 06:04 Dose: 75 mcg Documented By: FLORA Melatonin (Melatonin 3 Mg Tablet) 3 mg PO BEDTIME PRN PRN Reason: Insomnia Last Admin: 02/08/24 20:02 Dose: 3 mg Documented By: FLORA Memantine (Memantine Hcl 10 Mg Tablet) 10 mg PO DAILY [facility] Last Admin: 02/09/24 08:43 Dose: 10 mg Documented By: JARED Memantine (Memantine Hcl 5 Mg Tablet) 5 mg PO BEDTIME [facility] Last Admin: 02/08/24 20:02 Dose: 5 mg Documented By: FLORA Metoprolol Succinate (Metoprolol Succinate Er 12.5 Mg Halftab.Er.24h) 12.5 mg PO DAILY [facility]; Protocol Last Admin: 02/09/24 08:42 Dose: 12.5 mg Documented By: JARED Ondansetron HCl (Ondansetron Hcl 4 Mg/2 Ml Vial) 4 mg IVPUSH Q8H PRN PRN Reason: Nausea and Vomiting Pantoprazole Sodium (Pantoprazole Sodium 40 Mg/10 Ml Vial) 40 mg IVPUSH BID@0630,1630 [facility] Last Admin: 02/09/24 06:04 Dose: 40 mg Documented By: FABIANORIVLA Sodium Chloride (0.9 % Sodium Chloride Flush 3 Ml Syringe) 3 ml IVFLUSH QSHIFT [facility] Last Admin: 02/09/24 08:43 Dose: 3 ml Documented By: JARED Tiotropium [place] (Tiotropium [place] 2.5 Mcg 1 Puff/2.5 Mcg Mist.Inhal) 1 puff INHALE DAILY [facility] Last Admin: 02/09/24 08:10 Dose: 1 puff Documented By: RAKEL Venlafaxine HCl (Venlafaxine Hcl Er 75 Mg Cap.Er.24h) 75 mg PO DAILY [facility] Last Admin: 02/09/24 08:42 Dose: 75 mg Documented By: JARED Labs 02/09/24 05:34 02/09/24 05:34 Labs: Laboratory Results - last 24 hr 02/09/24 05:34 MCV 93.7 MCH 32.1 MCHC 34.2 RDW 14.6 Plt Count 153 L MPV 9.3 L Absolute Nucleated RBC 0.000 Nucleated RBC % (auto) 0.0 Anion Gap 10 L Estim Creat Clear Calc 38.5 Estimated GFR > 60 Fasting Glucose 95 Calcium 8.5 Assessment and Plan (1) Acute upper GI bleed: Status: Acute Plan 88F PMH htn, hypothryoid, alzheimers dementia, mood disorder, copd, presented with weakness, found to have anemia Acute blood loss anemia secondary to bleeding pyloric ulcer s/p 2 units prbc, hgb improved from 6.5 to 8, now down to 7.6, will transfuse 1 more unit s/p EGD and local epi 02/07/24 changed to iv protonix bid solid diet monitor cbc dced asa Hypertension Holding meds with low-normal these Hypothyroid Synthroid Alzheimer's dementia Memantine COPD Stable Continue Spiriva Mood disorder Venlafaxine dvt prophylaxis - mechanical due to GI bleed dnr/dni reason for continued hospitalization: close monitoring - bleeding ulcer Quality Stroke Does the patient have a stroke diagnosis?: No VTE Prior VTE?: No VTE Risk Level:: Medical - moderate - high VTE Device Contraindication: N/A - Device Ordered VTE Drug Contraindication: Treatment Not Indicated
--- NOTE | 2024-02-09 13:36 | MHC.CM.PN ---
EMR reviewed and per MD rounds, pt is not medically cleared for D/C due to management of GIB, with pt receiving a blood transfusion today.
--- NOTE | 2024-02-09 14:17 | P.PNGI_ITS ---
Subjective Subjective Date of Service: 02/09/24 Interval History: no reported bleeding receiving blood tolerating diet Critical Care Time (minutes): 0 Physical Exam 2 Vital Signs: Vital Signs: Last Vital Signs Temp 98.9 F 02/09/24 12:00 Pulse 84 02/09/24 12:00 Resp 16 02/09/24 12:00 BP 122/68 02/09/24 12:00 Pulse Ox 90 L 02/09/24 07:39 O2 Del Method Room Air 02/09/24 13:44 O2 Flow Rate 3 02/08/24 07:06 BMI result Body Mass Index 23.7 GI: Other: abdomen is soft and nontender Objective Data Labs 02/09/24 05:34 02/09/24 05:34 Labs: Laboratory Results - last 24 hr 02/07/24 02/09/24 00:06 05:34 WBC 11.4 H RBC 2.37 L Hgb 7.6 L Hct 22.2 L MCV 93.7 MCH 32.1 MCHC 34.2 RDW 14.6 Plt Count 153 L MPV 9.3 L Absolute Nucleated RBC 0.000 Nucleated RBC % (auto) 0.0 Sodium 141 Potassium 3.5 Chloride 108 Carbon Dioxide 27 Anion Gap 10 L BUN 15 Creatinine 0.80 Estim Creat Clear Calc 38.5 Estimated GFR > 60 Fasting Glucose 95 Calcium 8.5 Blood Type O Positive Antibody Screen NEGATIVE Crossmatch See Detail Procedures Date of Service Date of Service: 02/09/24 Progress Note: A&P Assessment and plan (1) Acute upper GI bleed: Status: Acute Assessment and Plan: upon d/c, start oral ppi EGD to f/u gastric ulcer in 10-12 weeks. Time Spent With Patient Time: Total time managing care of this patient today ____ minutes. Quality Stroke Does the patient have a stroke diagnosis?: No VTE Prior VTE?: No VTE Risk Level:: Medical - moderate - high VTE Device Contraindication: N/A - Device Ordered VTE Drug Contraindication: Treatment Not Indicated
[2024-02-09] MEDS: Melatonin 3 MG TABLET PO (21:33)
[2024-02-09] MEDS: Memantine HCl 5 MG TABLET PO (21:33)
[2024-02-10 03:17] VITALS: BP 105/52; PULSE 73; RESP 18; TEMP 36.9; O2SAT 93
[2024-02-10] MEDS: Pantoprazole Sodium 40 MG/10 ML VIAL IVPUSH (05:53)
[2024-02-10] MEDS: Levothyroxine Sodium 75 MCG TABLET PO (05:53)
[2024-02-10 06:07] LABS: Hematocrit 26.1 % (37.0-47.0); Hemoglobin 8.8 g/dl (12.0-16.0); Mean Corpuscular HGB Conc 33.7 g/dl (31.0-35.0); Mean Corpuscular Hemoglobin 31.5 pg (27.0-33.0); Mean Corpuscular Volume 93.5 fL (80.0-98.0); Mean Platelet Volume 9.7 fL (9.4-12.3); Platelet Count 182 X10*3/uL (160-400); Red Blood Count 2.79 X10*6/uL (4.20-5.50); Red Cell Distribution Width 14.1 % (11.0-16.0); White Blood Count 9.6 X10*3/uL (4.8-10.8)
[2024-02-10 06:21] LABS: Anion Gap 9 (12-20); Blood Urea Nitrogen 11 mg/dL (9-16); Calcium 8.5 mg/dL (8.4-10.2); Carbon Dioxide 28 mmol/L (22-29); Chloride 106 mmol/L (96-108); Creatinine Clr Calc Pharmacy 42.2; Estimated Glomerular Filt Rate > 60; Glucose Fasting 89 mg/dL (60-99); Sodium 140 mmol/L (135-145)
[2024-02-10] MEDS: Tiotropium Bromide 2.5 mcg 1 PUFF/2.5 MCG MIST.INHAL INHALE (07:32)
[2024-02-10 07:34] VITALS: PULSE 82; RESP 18; O2SAT 95
[2024-02-10 08:00] VITALS: BP 119/58; PULSE 75; RESP 20; TEMP 36.7; O2SAT 95
--- NOTE | 2024-02-10 09:06 | P.DS_ITS ---
DS: Providers Provider Date of Service: 02/10/24 Date of admission: 02/07/24 00:27 Primary care physician: Bret Carpenter MD Consults: 02/07/24 00:20 Consult to Gastroenterology Stat Consulting Provider: Sharad Rodriguez Reason for consultation: upper GIB, anemia Has provider been notified: No DS: Diagnosis Discharge Diagnosis (1) Acute upper GI bleed: Status: Acute DS: Summary Hospital Course Hospital Course: from initial hpi: 88-year-old female with pertinent history of essential hypertension, hypothyroidism, mood disorder, unspecified dementia, COPD not on home oxygen who presents to the emergency department for evaluation of generalized weakness. Patient states she has been fatigued for the last 3 days. No other complaints at this time. She states she never noticed her stools and does not know if it is dark or has blood in it. Also has associated dyspnea which is worse with exertion. No [id number] NSAIDs. Patient states she does not remember her last colonoscopy. Daughter also noticed that patient has been pale over the last 3-5 days. No fever, chills, chest discomfort, palpitations, abdominal pain, changes in urinary habits. In the emergency department, significant drop in hemoglobin noted. Stool occult blood noted to be positive hospital course: Patient was admitted for acute blood loss anemia secondary to bleeding pyloric ulcer. She received 3 units total RBC and hemoglobin improved from 6.5 to 8.8 at time of discharge. She underwent EGD on 02/07/2024 which revealed bleeding pyloric ulcers and received local epinephrine injection. She was treated with IV Protonix and transitioned to oral omeprazole. She is tolerating solid diet. Aspirin has been discontinued. She will follow up with GI as outpatient. For hypertension her amlodipine was held due to low normal blood pressures. For hypothyroidism she was continued on Synthroid. For Alzheimer's dementia was continued on memantine. For COPD she remained stable on Spiriva. For mood dis order she was continued on venlafaxine. Patient is feeling better, hgb stable, will be discharged home. Time Attestation Discharge Coordination Time (in mins): 35 Quality: Safe Use of Opioids Does Pt have an Active Cancer Diagnosis on the Problem List?: No Quality: Stroke Does the patient have a stroke diagnosis?: No Physical Exam Vital Signs: Vital Signs: Last Vital Signs Temp 98.1 F 02/10/24 08:00 Pulse 75 03/16/24 08:00 Resp 20 02/10/24 08:00 BP 119/58 L 02/10/24 08:00 Pulse Ox 95 02/10/24 08:00 O2 Del Method Room Air 02/10/24 08:00 O2 Flow Rate 3 02/08/24 07:06 BMI result Body Mass Index 23.7 GI: Other: abdomen is soft and nontender DS: Data Data Completed and Pending Pending studies at discharge: Pending at discharge 02/07/24 15:50 Surgical [PTH] Routine Labs on day of discharge: Laboratory Results - last 24 hr 02/07/24 02/10/24 00:06 05:33 WBC 9.6 RBC 2.79 L Hgb 8.8 L Hct 26.1 L MCV 93.5 MCH 31.5 MCHC 33.7 RDW 14.1 Plt Count 182 MPV 9.7 Absolute Nucleated RBC 0.000 Nucleated RBC % (auto) 0.0 Sodium 140 Potassium 3.0 L Chloride 106 Carbon Dioxide 28 Anion Gap 9 L BUN 11 Creatinine 0.73 Estim Creat Clear Calc 42.2 Estimated GFR > 60 Fasting Glucose 89 Calcium 8.5 Blood Type O Positive Antibody Screen NEGATIVE Crossmatch See Detail Discharge Plan Discharge Anticipated Discharge Date/Time: 02/10/24 09:05 Patient Disposition: Home, Self-Care Discharge Diagnosis: pud Referrals: Sharad Rodriguez MD [Physician] - 1 Week Bret Carpenter MD [Primary Care Provider] - 1 Week Discharge Medications: New omeprazole 40 mg capsule,delayed release(DR/EC) 40 mg PO BID Qty: 60 0RF Continued venlafaxine 75 mg capsule,extended release 24hr 75 mg PO DAILY levothyroxine 75 mcg tablet 75 mcg PO DAILY metoprolol succinate 25 mg tablet extended release 24 hr 12.5 mg PO DAILY memantine 10 mg tablet 10 mg PO DAILY Spiriva Respimat 1.25 mcg/actuation mist 1 puff INHALATION DAILY memantine 5 mg Tablet 5 mg PO BEDTIME Discontinued amlodipine 2.5 mg tablet 2.5 mg PO DAILY aspirin [Aspir-81] 81 mg Tablet,Delayed Release (Dr/Ec) 162 mg PO DAILY Discharge Orders: Discharge Order (Routine); Ordered 02/10/24 Ordered By: Jaime Brooke Diet: Advance to usual diet Activity on Discharge: As tolerated Stand Alone Forms: Patient Portal Discharge page Care Plan Goals: recovery Health Concerns: gi bleed Plan of Treatment: stop aspirin and amlodipine, started on omeprazole, follow up with dr rodriguez (GI) Assessment: see above
[2024-02-10] MEDS: 0.9 % Sodium Chloride Flush 3 ML SYRINGE IVFLUSH (09:35)
[2024-02-10] MEDS: Memantine HCl 10 MG TABLET PO (09:35)
[2024-02-10] MEDS: Metoprolol Succinate ER 12.5 MG HALFTAB.ER.24H PO (09:35)
[2024-02-10] MEDS: Venlafaxine HCl ER 75 MG CAP.ER.24H PO (09:35)
[2024-02-10] MEDS: Potassium Chloride ER 20 MEQ TAB.ER.PRT 40 MEQ PO (09:36)
--- NOTE | 2024-02-10 12:02 | MHC.CM.PN ---
Addendum entered by Sheryl Newell RN 02/10/24 12:12: ANTIC DTR [facility] FOR TRANSPORT Original Note: PT MEDICALLY CLEARED FOR DC HOME SELF CARE, CM WILL CHECK IN W/PT TO CONFIRM TRANSPORT.
== END 2024-02-10 12:00 | disposition home or self-care (01) | DRG 378 ==
LOC: HO.ED 02-07 00:26 → HO.EDOVER 02-07 00:31 → HO.IMC 02-07 14:46
PROVIDERS: Internal Medicine Gastroenterology; Admitting Provider Student in an Organized Health Care Education/Training Program; Emergency Provider Emergency Medicine; PCP Internal Medicine; Visit Provider Internal Medicine
PROC: 3E0G8GC Introduction of Other Therapeutic Substance into Upper GI, Via Natural or Artificial Opening Endoscopic (ICD-10-PCS; principal; 2024-02-07 14:50)
DX: K25.4 Chronic or unspecified gastric ulcer with hemorrhage (principal); D62 Acute posthemorrhagic anemia; G30.9 Alzheimer's disease, unspecified; F02.80 Dementia in other diseases classified elsewhere, unspecified severity, without behavioral disturbance, psychotic disturbance, mood disturbance, and anxiety; Z66 Do not resuscitate; E03.9 Hypothyroidism, unspecified; J44.9 Chronic obstructive pulmonary disease, unspecified; I25.10 Atherosclerotic heart disease of native coronary artery without angina pectoris; I10 Essential (primary) hypertension; Z87.891 Personal history of nicotine dependence; Z79.890 Hormone replacement therapy; Z79.899 Other long term (current) drug therapy
CPT/HCPCS: 36415; 71046; 80048; 82272; 82607; 82746; 82947; 83540; 83880; 84484; 85025; 85027; 86850; 86900; 86901; 86923; 88305; 88313; 88342; 93005; 94640; 99285; C9113; J0171; J2405; J2704; J7120; P9016

== ENCOUNTER → 2024-02-06 22:58 | Outpatient (BNV) | payer MEDICARE, OTHER, SELFPAY | PROVIDERS: Admitting Provider Student in an Organized Health Care Education/Training Program; Emergency Provider Emergency Medicine; PCP Internal Medicine; Visit Provider Internal Medicine Cardiovascular Disease | DX: I49.3 Ventricular premature depolarization (principal); R53.1 Weakness | CPT/HCPCS: 93010 ==

== ENCOUNTER → 2024-02-07 00:27 | Outpatient (BNV) | payer MEDICARE, OTHER, SELFPAY | PROVIDERS: Admitting Provider Student in an Organized Health Care Education/Training Program; Emergency Provider Emergency Medicine; PCP Internal Medicine; Visit Provider Student in an Organized Health Care Education/Training Program | DX: K92.2 Gastrointestinal hemorrhage, unspecified (principal); D50.0 Iron deficiency anemia secondary to blood loss (chronic) | CPT/HCPCS: 99222; 99233; 99239; 99499 ==

== ENCOUNTER 2024-02-14 14:10 | Emergency (ER) | payer MEDICARE, OTHER, SELFPAY ==
--- NOTE | ~2024-02-14 | CT_ITS ---
EXAMINATION: CT ANGIOGRAM CHEST CLINICAL INFORMATION: Severe pain with ripping in back COMPARISON: Chest radiograph 02/06/2024 TECHNIQUE: Multiple axial images were obtained through the chest after the administration of 70 mL of Omnipaque 350 intravenous contrast. Extensive vascular post-processing including two-dimensional and three-dimensional reformatted images were created and reviewed on an independent workstation. This CT examination was performed using dose optimization techniques as appropriate, variously including the following: *Automated exposure control *Adjustment of mA and/or kV according to patient size (this includes techniques or standardized protocols for targeted exams where dose is matched to indication/reason for exam; i.e. extremities or head) *Use of iterative reconstruction technique DLP: 207 mGy-cm VASCULAR FINDINGS: The thoracic aorta and proximal abdominal aorta appear unremarkable. There are mild atherosclerotic change is present but there is no evidence of aneurysm, dissection or intramural hematoma. Maximal dimension of the ascending aorta perpendicular to a center line is 3.6 cm. A three-vessel branching pattern of the aortic arch is present with widely patent great vessels. Although not carried out for evaluation of the pulmonary arteries or pulmonary veins, no abnormality is seen. No pulmonary emboli are detected. No thrombus is seen in the left atrial appendage. The celiac, SMA and single renal arteries visualized are widely patent. NONVASCULAR FINDINGS: LUNGS: Emphysematous changes are seen. Biapical pleural-parenchymal scarring is present. No suspicious lung masses or infiltrates are seen. MEDIASTINUM: The mediastinum is normal. CORONARY ARTERY CALCIFICATION: Absent PLEURA: There is no pleural effusion. No pleural mass or thickening. AXILLA: No lymphadenopathy. UPPER ABDOMEN: A large 1.4 cm partially visualized stone is present in a prominent extrarenal pelvis on the left. Status post cholecystectomy. A benign left upper pole 2.0 cm Bosniak class I renal cyst is noted which requires no additional imaging or follow up. No solid renal masses are seen. Large cyst extrarenal calcification is present in the spleen with smaller scattered punctate granulomas. Hepatic granulomas are present as well. OSSEOUS STRUCTURES: Unremarkable. Mild degenerative changes are present in the spine. CT/CT angio chest aorta IMPRESSION: 1. No evidence of aortic dissection or aneurysm. 2. Incidental note made of emphysema, 1.4 cm partially visualized stone in a prominent extrarenal pelvis on the left, cholecystectomy and other findings described above. Fleischner guidelines were followed.
[2024-02-14 14:55] VITALS: BP 97/47; PULSE 81; RESP 20; TEMP 37.1; O2SAT 95; BMI 18.7
[2024-02-14 15:04] VITALS: BP 133/47
--- NOTE | 2024-02-14 15:09 | ECG_ITS ---
Test Reason : weakness Blood Pressure : / mmHG Vent. Rate : 069 BPM Atrial Rate : 069 BPM P-R Int : 160 ms QRS Dur : 076 ms QT Int : 382 ms P-R-T Axes : 064 016 076 degrees QTc Int : 409 ms Normal sinus rhythm with sinus arrhythmia Nonspecific ST and T wave abnormality Abnormal ECG When compared with ECG of 06-FEB-2024 22:58, Premature ventricular complexes are no longer Present Referred By: Michelle Baltazar Electronically Signed By:UMA BLACKMON
[2024-02-14 15:31] LABS: MANUAL DIFF FLAG NO
[2024-02-14 15:32] LABS: Basophils Percent Auto 0.2 % (0-2); Eosinophils Percent Auto 0.1 % (0-4); Hematocrit 29.6 % (37.0-47.0); Hemoglobin 9.9 g/dl (12.0-16.0); Imm Gran Abs Auto 0.09 X10*3/uL (0.00-0.03); Imm Gran Pct Auto 0.7 % (0.0-0.4); Lymphocytes Absolute Auto 0.6 X10*3/uL (1.2-4.9); Lymphocytes Percent Auto 4.3 % (20-40); Mean Corpuscular HGB Conc 33.4 g/dl (31.0-35.0); Mean Corpuscular Hemoglobin 31.7 pg (27.0-33.0); Mean Corpuscular Volume 94.9 fL (80.0-98.0); Mean Platelet Volume 8.2 fL (9.4-12.3); Monocytes Absolute Auto 1.1 X10*3/uL (0.1-1.2); Monocytes Percent Auto 8.2 % (2-11); Neutrophils Absolute Auto 11.6 x10*3/uL (2.0-8.3); Neutrophils Percent Auto 86.5 % (45-73); Platelet Count 396 X10*3/uL (160-400); Red Blood Count 3.12 X10*6/uL (4.20-5.50); Red Cell Distribution Width 13.8 % (11.0-16.0); White Blood Count 13.4 X10*3/uL (4.8-10.8)
[2024-02-14 15:40] LABS: INTERNATIONAL NORM RATIO 1.4 (0.9-1.1); Prothrombin Time 16.5 SEC (11.1-13.3)
[2024-02-14 15:42] LABS: Partial Thromboplastin Time 28.7 SEC (26.0-36.8)
[2024-02-14 15:45] LABS: Alanine Aminotransferase 11 U/L (0-31); Albumin Level 3.5 g/dL (3.5-5.0); Alkaline Phosphatase 61 U/L (39-117); Anion Gap 12 (12-20); Aspartate Amino Transferase 12 U/L (5-31); Bilirubin Direct 0.2 mg/dL (0.0-0.5); Bilirubin Total 0.4 mg/dL (0.0-1.0); Blood Urea Nitrogen 9 mg/dL (9-16); Calcium 9.3 mg/dL (8.4-10.2); Carbon Dioxide 27 mmol/L (22-29); Chloride 101 mmol/L (96-108); Creatinine Clr Calc Pharmacy 45.5; Estimated Glomerular Filt Rate > 60; Glucose Random 111 mg/dL (60-115); Lipase 13 U/L (8-78); Magnesium 2.1 mg/dL (1.6-2.6); Potassium 3.9 mmol/L (3.3-5.1); Sodium 136 mmol/L (135-145); Total Protein 6.6 g/dL (6.5-8.0)
[2024-02-14 15:52] LABS: Troponin-I High Sensitivity 4.4 ng/L (<3.5-17.0)
[2024-02-14] MEDS: iohexoL 350 MG/ML 100 ML INFUS..BTL IV (16:14)
--- NOTE | 2024-02-14 16:31 | ED_ITS ---
HPI - General Adult General Chief complaint: General Medical Stated complaint: Fatigue - sent by dhiraj Stewart last week Time Seen by Provider: 02/14/24 16:18 Source: patient and family (Son) Mode of arrival: ambulatory History of Present Illness HPI narrative: 89-year-old female with a recent history of upper GI bleed and appeared fine last night when family went to visit but this morning the son became concerned because she was sleeping on the couch and did not appear to have good color and appeared confused and weak, patient is reporting right lower flank pain that she originally described as spasm and ripping pain. Patient currently points to right lower posterior flank pain without nausea, vomiting. Related Data Home Medications Medication Instructions Recorded Confirmed levothyroxine 75 mcg tablet 75 mcg PO DAILY 02/07/24 02/07/24 memantine 10 mg tablet 10 mg PO DAILY 02/07/24 02/07/24 memantine 5 mg tablet 5 mg PO BEDTIME 02/07/24 02/07/24 metoprolol succinate 25 mg 12.5 mg PO DAILY 02/07/24 02/07/24 tablet,extended release 24 hr tiotropium bromide 1.25 1 puff inhalation DAILY 02/07/24 02/07/24 mcg/actuation mist for inhalation (Spiriva Respimat) venlafaxine 75 mg capsule,extended 75 mg PO DAILY 02/07/24 02/07/24 release 24 hr Previous Rx's Medication Instructions Recorded omeprazole 40 mg capsule,delayed 40 mg PO BID #60 caps 02/10/24 release Allergies Allergy/AdvReac Type Severity Reaction Status Date / Time ENVIRONMENTAL Allergy Unknown COUGH Uncoded 02/14/24 15:03 Review of Systems 2 Review of Systems: Pertinent positives and negatives as stated in HPI [facility] Past Medical History Source: nursing notes reviewed Medical History Hypertension Hypothyroidism Dementia V-tach Social History Social History Household Members: None Housing: House Do you presently have visiting nurse or other home services: No Patient Tobacco Use Status: Former Tobacco user Smoked in Last 30 Days: No Second Hand Smoke Exposure: No Use of substances other than those prescribed or required for medical reasons: No Advance Directives: Yes Advance Directives on File: Yes Advance Directives Date on File: 02/07/24 service: No Physical Exam ED Vital Signs: Vital Signs - 24 hr 02/14/24 14:55 02/14/24 15:04 02/14/24 17:07 Temperature 98.8 F 98.4 F Pulse Rate 81 60 Respiratory Rate 20 18 Blood Pressure 97/47 L 133/47 L 101/50 L Pulse Oximetry 95 95 Oxygen Delivery Method Room Air Room Air BMI result Body Mass Index 18.7 VITAL SIGNS: Reviewed. GENERAL: Well developed, well nourished, in no acute distress. HEAD: Normocephalic/atraumatic EYES: PERRLA, EOMI EARS: Ext canals without abnormality NOSE: Nares patent bilateral OROPHARYNX: no oral lesions noted, posterior pharynx clear NECK: Supple, no adenopathy LUNGS: Normal breath sounds. No adventitious sounds or accessory muscle use. SpO2<95> CARDIOVASCULAR: Regular rate and rhythm without noted murmurs, no JVD or lower extremity edema. ABDOMEN: Soft, non-tender, non-distended with bowel sounds. BACK: There is no tenderness to palpation along mid vertebral spine and there are no noted step-offs, on caudal palpation there is noted and reproducible pain to palpation between the iliac and approximate L2-L3 there is no overlying erythema/induration or swelling/mass MUSCULOSKELETAL: No tenderness, deformities, or effusions noted on gross inspection. EXTREMITIES: No cyanosis, clubbing or edema. SKIN: Inspection of the skin reveals no rashes NEUROLOGIC: Alert and oriented x 3. Strength and sensation to light touch were grossly intact x 4. Medications Administered Discontinued Medications Generic Name Dose Route Start Last Admin Trade Name Freq PRN Reason Stop Dose Admin Acetaminophen 975 mg 02/14/24 18:25 02/14/24 19:16 Acetaminophen 325 Mg Tablet PO 02/14/24 18:26 975 mg ONCE ONE Administration Iohexol 100 ml 02/14/24 16:14 02/14/24 16:14 Iohexol 350 Mg/Ml 100 Ml Infus..Btl IV 02/14/24 16:15 70 ml ONCE ONE Administration Medical Decision Making Medical Decision Making MDM Narrative: 89-year-old female with history and clinical presentation, DDX: MSK, lower clinical suspicion for appendicitis/renal colic/cholecystitis. I reviewed all investigations and hematologic indices demonstrate a noninfectious leukocytosis with a stable normocytic anemia and no thrombocytopenia. Coagulation studies demonstrate slight elevation in PT/INR. Chemistry indices are grossly within normal limits without evidence of HIGINIO or electrolyte/liver enzyme derangements, high sensitivity troponin although detectable is not elevated and there are no corresponding EKG changes. f/u UA and CT 1900: I reviewed the CT angio findings which are negative for any acute abnormalities, urinalysis is negative for UTI or hematuria and patient is feeling better after having received Tylenol and lidocaine patch, all results and findings discussed with the patient and her son at bedside. Differential Diagnosis Differential Diagnoses: The differential diagnosis associated with the presentation includes Please see the discussion above Admission/Observation Consideration of admission/observation: Escalation of care including admission/observation considered Please see the discussion above Lab Data MDM Lab Attestation statement: I reviewed the patient's lab results. Please see the discussion above 02/14/24 15:26 02/14/24 15:26 Labs: Lab Results 02/14/24 02/14/24 Range/Units 15:26 18:22 WBC 13.4 H (4.8-10.8) X10*3/uL RBC 3.12 L (4.20-5.50) X10*6/uL Hgb 9.9 L (12.0-16.0) g/dl Hct 29.6 L (37.0-47.0) % MCV 94.9 (80.0-98.0) fL MCH 31.7 (27.0-33.0) pg MCHC 33.4 (31.0-35.0) g/dl RDW 13.8 (11.0-16.0) % Plt Count 396 D (160-400) X10*3/uL MPV 8.2 L (9.4-12.3) fL Immature Gran % (Auto) 0.7 H (0.0-0.4) % Neut % (Auto) 86.5 H (45-73) % Lymph % (Auto) 4.3 L (20-40) % [place] % (Auto) 8.2 (2-11) % Eos % (Auto) 0.1 (0-4) % Baso % (Auto) 0.2 (0-2) % Lymph # (Auto) 0.6 L (1.2-4.9) X10*3/uL [place] # (Auto) 1.1 (0.1-1.2) X10*3/uL Eos # (Auto) 0.0 (0.0-0.4) X10*3/uL Baso # (Auto) 0.0 (0.0-0.2) X10*3/uL Abs Immat Gran (auto) 0.09 H (0.00-0.03) X10*3/uL Absolute Neuts (auto) 11.6 H (2.0-8.3) x10*3/uL Absolute Nucleated RBC 0.000 (0.0-0.012) X10*3/uL Nucleated RBC % (auto) 0.0 (0.0-0.2) /100WBC PT 16.5 H (11.1-13.3) SEC INR 1.4 H (0.9-1.1) APTT 28.7 (26.0-36.8) SEC Sodium 136 (135-145) mmol/L Potassium 3.9 D (3.3-5.1) mmol/L Chloride 101 (96-108) mmol/L Carbon Dioxide 27 (22-29) mmol/L Anion Gap 12 (12-20) BUN 9 (9-16) mg/dL Creatinine 0.71 (0.5-1.4) mg/dL Estim Creat Clear Calc 45.5 Estimated GFR > 60 Random Glucose 111 (60-115) mg/dL Calcium 9.3 D (8.4-10.2) mg/dL Magnesium 2.1 (1.6-2.6) mg/dL Total Bilirubin 0.4 (0.0-1.0) mg/dL Direct Bilirubin 0.2 (0.0-0.5) mg/dL AST 12 (5-31) U/L ALT 11 (0-31) U/L Alkaline Phosphatase 61 (39-117) U/L Troponin I High Sens 4.4 D (<3.5-17.0) ng/L Total Protein 6.6 (6.5-8.0) g/dL Albumin 3.5 (3.5-5.0) g/dL Lipase 13 (8-78) U/L Urine Color Yellow Urine Appearance Clear Urine pH 5.5 (5.0-9.0) Ur Specific [place] >= 1.030 H (1.005-1.025) Urine Protein Trace (Neg-Trace) mg/dL Urine Glucose (UA) Negative (Negative) mg/dL Urine Ketones Negative (Negative) mg/dL Urine Blood Trace H (Negative) Urine Nitrite Negative (Negative) Ur Leukocyte Esterase Negative (Negative) Urine RBC 3-5 H (0-2) /HPF Urine WBC 21-50 H (0-5) /HPF Ur Squamous Epith Cells 0-2 (0-2) /HPF Urine Bacteria None Seen (None Seen) Hyaline Casts 0-2 (0-2) /LPF Independent Interpretation I performed an independent interpretation of an: EKG Interpretation: Normal sinus rhythm, HR-69, no STEMI, RI/QRS/QTC is within normal limits. Radiology Impression Discussion of test interpretation with radiology: I have reviewed the radiologist's reading. Radiologist Impression: Please see the discussion above External Record Review External record reviewed: Outpatient record, Prior outpatient labs and Prior outpatient radiology Critical Care Time Critical Care Time Critical Care Time: Yes Total Critical Care Time: 30 Attestation: I personally attest to this time spent taking care of the patient. Discharge Plan Discharge Clinical Impression: Musculoskeletal pain, Back pain Instructions: Back Pain (ED), Musculoskeletal Pain (ED) Additional Instructions: 1. Resume all home medications as prescribed. 2. Tylenol 1000 mg, orally, every 6 hours as needed for pain control. Do not exceed 4000 mg within 24 hours. 3. Recommend [id number] lidocaine patch, apply to area of maximal tenderness as directed on the outside packaging. 4. Please follow-up with your primary care doctor in the next 1-2 days. Return to the ER for any worsening symptoms. Prescriptions: No Action venlafaxine 75 mg capsule,extended release 24hr 75 mg PO DAILY levothyroxine 75 mcg tablet 75 mcg PO DAILY metoprolol succinate 25 mg tablet extended release 24 hr 12.5 mg PO DAILY memantine 10 mg tablet 10 mg PO DAILY Spiriva Respimat 1.25 mcg/actuation mist 1 puff INHALATION DAILY memantine 5 mg Tablet 5 mg PO BEDTIME omeprazole 40 mg capsule,delayed release(DR/EC) 40 mg PO BID Qty: 60 0RF Referrals: Bret Carpenter MD [Primary Care Provider] -
[2024-02-14 17:07] VITALS: BP 101/50; PULSE 60; RESP 18; TEMP 36.9; O2SAT 95
[2024-02-14 18:33] LABS: Appearance Urine Clear; Color Urine Yellow; Glucose Urine UA Negative (Negative); Leukocyte Esterase Urine Negative (Negative); Nitrite Urine Negative (Negative); PH 5.5 (5.0-9.0); Specific Gravity - Urine >= 1.030 (1.005-1.025); UMIC TRIGGER UACC YES; Urine Blood Trace (Negative); Urine Ketones Negative (Negative); Urine Protein Trace mg/dL (Neg-Trace)
[2024-02-14 18:56] LABS: Bacteria Urine None Seen (None Seen); Hyaline Casts Urine 0-2 /LPF (0-2); Squamous Epithelial Cell Urine 0-2 /HPF (0-2); UACC Culture Trigger YES; WBC Urine 21-50 /HPF (0-5)
[2024-02-14] MEDS: Acetaminophen 325 MG TABLET 975 MG PO (19:16)
[2024-02-14] MEDS: Lidocaine 4 % Patch ADH..PATCH 1 PATCH TRANSDERMA (19:17)
[2024-02-14 19:50] VITALS: BP 116/49; PULSE 68; RESP 16; TEMP 36.9; O2SAT 96
== END 2024-02-14 19:50 | disposition home or self-care (01) ==
PROVIDERS: Physician Assistant Medical; Emergency Provider Student in an Organized Health Care Education/Training Program; PCP Internal Medicine
DX: M79.18 Myalgia, other site (principal); M54.9 Dorsalgia, unspecified; I10 Essential (primary) hypertension
CPT/HCPCS: 36415; 71275; 80048; 80076; 81001; 83690; 83735; 84484; 85025; 85610; 85730; 86850; 86900; 86901; 87086; 93005; 99284; 99285; Q9967

== ENCOUNTER → 2024-02-14 15:09 | Outpatient (BNV) | payer MEDICARE, OTHER, SELFPAY | PROVIDERS: Emergency Provider Student in an Organized Health Care Education/Training Program; PCP Internal Medicine; Visit Provider Internal Medicine | DX: R94.31 Abnormal electrocardiogram [ECG] [EKG] (principal) | CPT/HCPCS: 93010 ==

== ENCOUNTER 2024-02-29 12:22 | Outpatient (REF) | payer MEDICARE, OTHER, SELFPAY ==
--- NOTE | ~2024-02-29 | MM_ITS ---
EXAMINATION: BONE DENSITOMETRY CLINICAL INDICATION: Menopause. COMPARISON: Previous BD dated 02/24/2022 and baseline BD dated 03/24/2011. TECHNIQUE: Using a [employer] DXA System (software version: 13.1) manufactured by [employer], dual-energy x-ray absorptiometry was performed of the lumbar spine and left hip. The images are of good technical quality. Summary results are attached. FINDINGS: LEFT FEMUR, NECK: Current: BMD 0.674 g/cm2, Z-score 0.1, T-score -2.6, osteoporosis. Prior: BMD 0.693 g/cm2. Baseline: BMD 0.702 g/cm2. LEFT FEMUR, TOTAL: Current: BMD 0.640 g/cm2, Z-score -0.2, T-score -2.9, osteoporosis, 6.2% decrease from previous, 10.1% decrease from baseline (<5% change is not significant). Prior: BMD 0.682 g/cm2. Baseline: BMD 0.712 g/cm2. AP SPINE L1-L4: Current: BMD 0.742 g/cm2, Z-score -1.3, T-score -3.6, osteoporosis, 2.1% decrease from previous, 9.4% decrease from baseline (<5% change is not significant). Prior: BMD 0.758 g/cm2. Baseline: BMD 0.819 g/cm2. IDENTIFIED RISK FACTORS: Dementia, menopause. HISTORY OF FRACTURE: None listed. MEDICATIONS: Vitamin D. MM/XR DEXA axial skeleton IMPRESSION: 1. DIAGNOSIS: Osteoporosis based on the lowest T-score value of -3.6 in the lumbar spine applying World Health Organization criteria. 2. 10-YEAR FRACTURE RISK PREDICTION, FRAX: According to the guidelines, FRAX calculation should only be performed on patients in the osteopenia bone density category. Therefore, FRAX was not performed on this patient. 3. Treatment Recommendations: NOF guidelines recommend consideration for treatment in postmenopausal women and men age 50 and older presenting with the following: -A hip or vertebral (clinical or morphometric) fracture. -T-score less than or equal to -2.5 at the femoral neck or spine after appropriate evaluation to exclude secondary causes. -Low bone mass at the hip or spine and a 10-year fracture probability by FRAX of greater than or equal to 3% for hip fracture or greater than or equal to 20% for major osteoporotic fracture based on the [place] adapted WHO algorithm. 4. Other Recommendations: All treatment decisions require clinical judgment and consideration of individual patient factors, including patient preferences, comorbidities, previous drug use, risk factors not captured in the FRAX model (e.g. frailty, falls, vitamin D deficiency, increased bone turnover, interval significant decline in bone density) and possible under or overestimation of fracture risk by FRAX. Additional medical evaluation for secondary cause of low bone mineral density may be appropriate. FUTURE SCAN RECOMMENDATION: People with diagnosed cases of osteoporosis or at high risk for fracture should have regular bone mineral density tests. For patients eligible for Medicare, routine testing is allowed once every 2 years. The testing frequency can be increased to one year for patients who have rapidly progressing disease, those who are receiving or discontinuing medical therapy to restore bone mass, or have additional risk factors.
== END 2024-02-29 12:23 | disposition home or self-care (01) ==
LOC: HO.MAMMO 12:22
PROVIDERS: PCP Internal Medicine; Visit Provider Internal Medicine
DX: Z12.31 Encounter for screening mammogram for malignant neoplasm of breast (principal); Z13.820 Encounter for screening for osteoporosis; Z78.0 Asymptomatic menopausal state
CPT/HCPCS: 77063; 77067; 77080

== ENCOUNTER → 2024-02-29 13:00 | Outpatient (BNV) | payer MEDICARE, OTHER, SELFPAY | PROVIDERS: PCP Internal Medicine; Visit Provider Radiology Diagnostic Radiology | DX: Z12.31 Encounter for screening mammogram for malignant neoplasm of breast (principal) | CPT/HCPCS: 77063; 77067 ==

== ENCOUNTER 2024-03-26 11:47 | Outpatient (REF) | payer MEDICARE, OTHER, SELFPAY ==
[2024-03-26 12:09] LABS: MANUAL DIFF FLAG NO
[2024-03-26 12:56] LABS: Basophils Percent Auto 0.6 % (0-2); Eosinophils Absolute Auto 0.1 X10*3/uL (0.0-0.4); Eosinophils Percent Auto 1.8 % (0-4); Hematocrit 41.3 % (37.0-47.0); Hemoglobin 13.6 g/dl (12.0-16.0); Imm Gran Abs Auto 0.02 X10*3/uL (0.00-0.03); Imm Gran Pct Auto 0.3 % (0.0-0.4); Lymphocytes Absolute Auto 1.1 X10*3/uL (1.2-4.9); Lymphocytes Percent Auto 15.8 % (20-40); Mean Corpuscular HGB Conc 32.9 g/dl (31.0-35.0); Mean Corpuscular Hemoglobin 31.8 pg (27.0-33.0); Mean Corpuscular Volume 96.5 fL (80.0-98.0); Mean Platelet Volume 8.6 fL (9.4-12.3); Monocytes Absolute Auto 0.7 X10*3/uL (0.1-1.2); Monocytes Percent Auto 9.7 % (2-11); Neutrophils Absolute Auto 4.9 x10*3/uL (2.0-8.3); Neutrophils Percent Auto 71.8 % (45-73); Platelet Count 299 X10*3/uL (160-400); Red Blood Count 4.28 X10*6/uL (4.20-5.50); Red Cell Distribution Width 14.6 % (11.0-16.0); White Blood Count 6.8 X10*3/uL (4.8-10.8)
[2024-03-26 13:38] LABS: Alanine Aminotransferase 12 U/L (0-31); Albumin Level 4.2 g/dL (3.5-5.0); Alkaline Phosphatase 83 U/L (39-117); Anion Gap 13 (12-20); Aspartate Amino Transferase 18 U/L (5-31); Bilirubin Total 0.3 mg/dL (0.0-1.0); Blood Urea Nitrogen 12 mg/dL (9-16); Calcium 9.7 mg/dL (8.4-10.2); Carbon Dioxide 28 mmol/L (22-29); Chloride 106 mmol/L (96-108); Estimated Glomerular Filt Rate > 60; Glucose Random 104 mg/dL (60-115); Iron 109 mcg/dL (30-160); Percent Iron Saturation 36 % (15-50); Potassium 3.9 mmol/L (3.3-5.1); Sodium 143 mmol/L (135-145); Total Iron Binding Capacity 302 mcg/dL (228-428); Total Protein 7.4 g/dL (6.5-8.0); Unsaturated Iron Binding 193 ug/dL
[2024-03-26 16:42] LABS: Vitamin B12 257 pg/mL (200-900)
== END 2024-03-26 11:48 | disposition home or self-care (01) ==
LOC: HO.LAB 11:47
PROVIDERS: PCP Internal Medicine; Visit Provider Internal Medicine
DX: D64.9 Anemia, unspecified (principal); J44.9 Chronic obstructive pulmonary disease, unspecified; E03.9 Hypothyroidism, unspecified; E53.8 Deficiency of other specified B group vitamins
CPT/HCPCS: 36415; 80053; 82607; 83540; 85025

== ENCOUNTER 2024-04-17 12:20 | Day surgery (SDC) | payer MEDICARE, OTHER, SELFPAY ==
[2024-04-15 14:46] VITALS: BMI 22.5
--- NOTE | 2024-04-16 10:06 | HO.ANESPROP2 ---
HPI - Anesthesia Eval Consult details Narrative: 89yo F Upper Endoscopy Dementia, but signed previous consent. DNR [facility] admit 01/2024 hospital course: Patient was admitted for acute blood loss anemia secondary to bleeding pyloric ulcer. She received 3 units total RBC and hemoglobin improved from 6.5 to 8.8 at time of discharge. She underwent EGD on 02/07/2024 which revealed bleeding pyloric ulcers and received local epinephrine injection. She was treated with IV Protonix and transitioned to oral omeprazole. She is tolerating solid diet. Aspirin has been discontinued. She will follow up with GI as outpatient. For hypertension her amlodipine was held due to low normal blood pressures. For hypothyroidism she was continued on Synthroid. For Alzheimer's dementia was continued on memantine. For COPD she remained stable on Spiriva. For mood disorder she was continued on venlafaxine. Patient is feeling better, hgb stable, will be discharged home. s/p EGD 01/2024 with MAC [facility] Cardio. Last office visit 11/2023. Per note: NSVT (noted on monitor, 25 beats) no ischemia, nml EF on stress test, good activity tolerance; PACs asymptomatic PMFSH Active Problems Active Problems: All Active Problems Acute upper GI bleed (Acute) Past Medical History Medical History Pyloric channel ulcer Nephrolithiasis Common bile duct stone COPD (chronic obstructive pulmonary disease) Osteoporosis Hypertension Hypothyroidism Dementia V-tach Family History Family history of problems with anesthesia: No Surgical History Surgical History Hx of cystoscopy Hx of tonsillectomy Hx of appendectomy Hx of tubal ligation History of esophagogastroduodenoscopy (EGD) History of ERCP History of Problems with Anesthesia: No Social History Social History Household Members: None Housing: House Do you presently have visiting nurse or other home services: No Patient Tobacco Use Status: Former Tobacco user Second Hand Smoke Exposure: No Use of substances other than those prescribed or required for medical reasons: No Are you DNR?: Yes Advance Directives: No Advance Directives Information Provided: Yes Advance Directives Date on File: 02/07/24 Patient : No service: No Meds Allergies Allergy/AdvReac Type Severity Reaction Status Date / Time environmental allergies Allergy Intermediate Cough Verified 04/15/24 14:43 Home Medications ?Medication ?Instructions ?Recorded ?Confirmed ?Last Taken ?Type levothyroxine 75 mcg tablet 75 mcg PO DAILY 02/07/24 04/15/24 02/06/24 History memantine 10 mg tablet 10 mg PO DAILY 02/07/24 04/15/24 02/06/24 History memantine 5 mg tablet 5 mg PO BEDTIME 02/07/24 04/15/24 02/06/24 History metoprolol succinate 25 mg 12.5 mg PO DAILY 02/07/24 04/15/24 02/06/24 History tablet,extended release 24 hr tiotropium bromide 1.25 1 puff inhalation DAILY 02/07/24 04/15/24 02/06/24 History mcg/actuation mist for inhalation (Spiriva Respimat) venlafaxine 75 mg capsule,extended 75 mg PO DAILY 02/07/24 04/15/24 02/06/24 History release 24 hr Exam Height,Weight and Vital Signs: Height 5 ft 0.25 in Weight 52.617 kg Pertinent Lab Results Pertinent Lab Results: Laboratory Tests 03/26/24 12:07 WBC 6.8 Hgb 13.6 D Hct 41.3 D Plt Count 299 Sodium 143 Potassium 3.9 Chloride 106 Carbon Dioxide 28 BUN 12 Creatinine 0.72 Narrative Narrative: EKG 01/2024 Vent. Rate : 069 BPM Atrial Rate : 069 BPM P-R Int : 160 ms QRS Dur : 076 ms QT Int : 382 ms P-R-T Axes : 064 016 076 degrees QTc Int : 409 ms Normal sinus rhythm with sinus arrhythmia Nonspecific ST and T wave abnormality Abnormal ECG When compared with ECG of 06-FEB-2024 22:58, Premature ventricular complexes are no longer Present ECHO 08/2023 1. Mild conc LVH 2. Overall LV sys function, nml EF 55-60% 3. No evidence of wall motion abn 4. LA size is nml 5. RV sys function nml 6. No evidence of aortic stenosis 7. Trace mitral regurg 8. No evidence of pulmo htn 9. Asc aorta nml size 10. No prior echo for compare NC Myocard Perfusion Pharm Stress 10/2023 No ischemia or infarct seen Nml LV systolic function Assessment and Plan Assessment Anesthesia Assessment: Chart Reviewed Final Anesthetic Review Family History of Problems with Anesthesia: No History of Problems with Anesthesia: No
--- OUTSIDE RECORDS SUMMARY | 2024-04-17 12:23 | XMS_ITS | Patient Health Record ---
Author Organization [facility] Address [address] [place] [address] Care Team Providers Care Art Glass Designer Name Role Phone Jayden CORTES, Bret Primary Care Provider Sharad Valero Jr Unavailable ALLERGIES No Known Allergies RESULTS Component Value Reference Range Notes Pathology Reviewed date:02/14/2024 09:33:31 AM Interpretation: Performing Lab:[facility], [address] [place] [phone] Notes/Report: Type and Screen Reviewed date:2024 04:29:18 PM Interpretation: Performing Lab:[facility], [address] [place] [phone] Notes/Report: Results at Issue Units as of 02/07/24 0810 ... Test View Group: Most Recent HGB HCT Results LABORATORY Date Time Test Result Flag Normal Range 02/07/24 0542 HGB 6.5 *L 12.0-16.0 g/dl RESULTS OF HGB CALLED TO AND READ BACK BY PASQUALE ON 02/07/24 AT 0703 BY DARYA. 02/07/24 0542 HCT 19.3 *L 37.0-47.0 % RESULTS OF HCT CALLED TO AND READ BACK BY PASQUALE ON 02/07/24 AT 0704 BY DARYA. Results at Issue Units as of 02/07/243 ... Test View Group: Most Recent HGB HCT Results LABORATORY Date Time Test Result Flag Normal Range 02/07/24 0542 HGB 6.5 *L 12.0-16.0 g/dl RESULTS OF HGB CALLED TO AND READ BACK BY PASQUALE ON 02/07/24 AT 0703 BY DARYA. 02/07/24 0542 HCT 19.3 *L 37.0-47.0 % RESULTS OF HCT CALLED TO AND READ BACK BY PASQUALE ON 02/07/24 AT 0704 BY DARYA. Results at Issue Units as of 02/09/24 1131 ... Test View Group: Most Recent HGB HCT Results LABORATORY Date Time Test Result Flag Normal Range 02/09/24 0534 HGB 7.6 L 12.0-16.0 g/dl 02/09/24 0534 HCT 22.2 L 37.0-47.0 % Hgb 7-9 ASCVD or COPD No Blood Type OP RH IMMUNE DANE AGUILAR INDICATED: NO Antibody Screen NEGATIVE Red Blood Cells Reviewed date:2024 04:29:23 PM Interpretation: Performing Lab:[facility], [address] [place] [phone] Notes/Report: Red Blood Cells [id number] ON RC Red Blood Cells TRANSFUSED 02/07/24 0809 Red Blood Cells [id number] OP RC Red Blood Cells TRANSFUSED 02/09/24 1130 Red Blood Cells [id number] OP RC Red Blood Cells TRANSFUSED 02/07/242041 REASON FOR REFERRAL No Information MEDICATIONS Medication SIG (Take, Route, Frequency, Duration) Notes Start Date End Date Status amLODIPine Besylate 2.5 MG 1 tablet Oral ly Once a day Active Venlafaxine HCl 75 MG 1 tablet with food Orally Once a day Active Metoprolol Succinate ER 25 MG 1 tablet Orally Once a day for 30 day(s) Active Omeprazole 40 MG 1 capsule 30 minutes before morning meal Orally twice a day Active Iron Carbonyl-Vitamin C-FOS 30-10-25 MG 1 tablet with food and juice Orally Once a day for 30 day(s) Active Losartan Potassium 100 MG 1 tablet Orall y Once a day Active Levothyroxine Sodium 50 MCG 1 tablet on an empty stomach in the morning Orally Once a day Active Memantine HCl 10 MG 1 tablet Orally Once a day for 30 day(s) Active Vitamin C ER 1500 MG 1 tablet Orally Onc e a day for 30 day(s) Active IMMUNIZATIONS Vaccine Route Administration Date Status Comme nts Flu vaccine no Preserv 3 and > Unknown 09/07/2016 Admin istered Influenza Unknown 08/28/2018 Administered Influenza Unknown 09/13/2023 Administered SOCIAL HISTORY Tobacco Use: Social History Observation Description Date Details (start date - stop date) Former Smoker NA - NA Sex Assigned At : Social History Observation Description Sex Assigned At Unknown Tobacco Use/Smoking Question Answer Notes Patient is a former smoker How long has it been since you last smoked? > 10 years Alcohol Screen Question Answer Notes Did you have a drink containing alcohol in the p ast year? No Points 0 Interpretation Negative PROBLEMS Problem Type ICD Code Onset Dates Problem Status W/U Status Risk SNOMED Code Notes Problem Epigastric pain (R10.13) Active confirmed 32741685 Problem Acute gastric ulcer with hemorrhage (K25.0) Active confirmed 24616333 Problem Gastroesophageal reflux disease without esophagitis (K21.9) Active confirmed 801351036 Problem Esophageal spasm (K22.4) Active confirmed 25761346 Problem Common bile duct calculi (K80.50) Active confirmed 834389507 Problem Gastric ulcer (K25.9) Active confirmed Gastric ulcer (544347569) Problem Secondary hypertension (I15.9) Active confirmed 89395095 VITAL SIGNS Temperature 97.3 degrees Fahrenheit 02/19/2024 Blood pressure diastolic 00 mm Hg 02/19/2024 Height 60.25 in 02/19/2024 Blood pressure systolic 000 mm Hg 02/19/2024 Weight 116 lbs 02/19/2024 BMI 22.46 kg/m2 02/19/2024 Encounters Encounter Location Date Provider Diagnosis [facility] Outpatient [address] [place] [id number] 04/17/2024 Sharad Rodriguez Jr [facility] [address] [place] [phone] 02/19/2024 Sharad Rodriguez Jr Acute gastric ulcer with hemorrhage K25.0 [facility] [address] [place] [phone] 2024 Sharad Rodriguez Jr [facility] [address] [place] [phone] 02/14/2024 Sharad Rodriguez Jr [facility] [address] [place] [phone] 02/14/2024 Sharad Rodriguez Jr [facility] [address] [place] [phone] 03/08/2024 Sharad Rodriguez Jr ASSESSMENTS Encounter Date Diagnosis Assessment Notes Treatment Notes Treatment Clinical Notes 02/19/2024 Acute gastric ulcer with hemorrhage (ICD-10 - K25.0) Gastric tissue biopsy and culture material was printed PLAN OF TREATMENT Future Test Test Name Order Date COLONOSCOPY 02/01/2012 UPPER GI ENDOSCOPY 10/10/2018 ERCP REMOVAL OF STONES 10/10/2018 UPPER GI ENDOSCOPY 02/19/2024 Next Appt Details Provider Name:Sharad ivan Jr, 04/17/2024 01:50:00 PM, [address] [facility] , [place], [place], [phone], Insurance Providers Payer Name Payer Address Payer Phone Subscriber Number Group Number Insured Name Patient Relationship to Insured Coverage Start Date Coverage End Date MEDICARE OF [employer]BAR[employer] [address] [id number] NADIR GALEANO Self - patient is the [facility] [address] [place] [phone] [id number] NADIR GALEANO Self - patient is the insured MEDICAL (GENERAL) HISTORY Medical History History ICD Code Osteoporosis Hypothyroidism Hypertension COPD Dementia/mood disorder Common bile duct stones, status post ERC P Nephrolithiasis Ventricular tachycardia Peptic ulcer disease, EGD with control o f hemorrhage 02/17 Surgical History Surgery Date(Month/Year) tubal ligation appendectomy tonsillectomy kidney stone surgery Hospitalization History Reason Date(Month/Year) Pyloric channel ulcer with bleeding 02/17
[2024-04-17 13:24] VITALS: BMI 23.2
[2024-04-17 13:30] VITALS: BP 192/81; PULSE 78; RESP 16; TEMP 486.9; TEMP 908.5; O2SAT 97
[2024-04-17] MEDS: Lactated Ringers 1,000 ML 100 ML IVCONT (13:32)
--- NOTE | 2024-04-17 14:04 | P.HPSUR_ITS ---
Pre-Procedural Eval Section A - 24 Hr Update-Section A only Date of Service: 04/17/24 Section B - Complete if H&P > 30 days Chief Complaint: Acute gastric ulcer with hemorrhage Details of Present Illness: see H&P no changes Relevant Family History (Specify if Yes): No Relevant Social History: None Present Medications: see Short Stay Collaborative assessment Medical History: No relevant PMH History of Previous Operations: No relevant previous surgery Allergies: Allergies Allergy/AdvReac Type Severity Reaction Status Date / Time environmental allergies Allergy Intermediate Cough Verified 04/15/24 14:43 Review of Systems Sugical H&P ROS: Negative: Constitution, Cardiovascular, Respiratory, Neurological, Psychiatric, Hem-Onc, Allergic/Immunologic, Gastrointestinal, Genitourinary, Musculoskeletal, Integumentary, Endocrine and Eyes /Ears/Nose/Throat Exam Surgical H&P Exam: Normal: HEENT, Normal: Heart, Normal: Lungs, Normal: Extremities, Normal: Abdomen, Normal: Skin and Normal: Neurological Plan Diagnosis/Plan: Unchanged I have reviewed the history and physical and performed a pertinent physical examination on my patient. No changes have occurred unless specified. Time Spent With Patient Time: Total time managing care of this patient today ____ minutes.
--- NOTE | 2024-04-17 14:11 | HO.ANESPROP2 ---
FORM[facility]LY [facility] Active Problems Active Problems: All Active Problems Acute upper GI bleed (Acute) Past Medical History Medical History Pyloric channel ulcer Nephrolithiasis Common bile duct stone COPD (chronic obstructive pulmonary disease) Osteoporosis Hypertension Hypothyroidism Dementia V-tach Functional capacity: independent ambulation Patient : No Family History Family history of problems with anesthesia: No Surgical History Surgical History Hx of cystoscopy Hx of tonsillectomy Hx of appendectomy Hx of tubal ligation History of esophagogastroduodenoscopy (EGD) History of ERCP History of Problems with Anesthesia: No Social History Social History Household Members: None Housing: House Do you presently have visiting nurse or other home services: No Patient Tobacco Use Status: Former Tobacco user Second Hand Smoke Exposure: No Use of substances other than those prescribed or required for medical reasons: No Are you DNR?: Yes Advance Directives: No Advance Directives Information Provided: Yes Advance Directives Date on File: 02/07/24 service: No Meds Allergies Allergy/AdvReac Type Severity Reaction Status Date / Time environmental allergies Allergy Intermediate Cough Verified 04/15/24 14:43 Active Medications: Current Medications Albuterol Sulfate (Albuterol Sulfate (0.083%) 2.5 Mg/3 Ml Vial.Neb) 2.5 mg INHALE ONCE PRN PRN Reason: Shortness of Breath/Wheezing Lactated Ringer's (Lr) 1,000 mls @ 100 mls/hr IVCONT .Q10H [place] Last Admin: 04/17/24 13:32 Dose: 100 mls/hr Home Medications ?Medication ?Instructions ?Recorded ?Confirmed ?Last Taken ?Type levothyroxine 75 mcg tablet 75 mcg PO DAILY 02/07/24 04/15/24 02/06/24 History memantine 10 mg tablet 10 mg PO DAILY 02/07/24 04/15/24 02/06/24 History memantine 5 mg tablet 5 mg PO BEDTIME 02/07/24 04/15/24 02/06/24 History metoprolol succinate 25 mg 12.5 mg PO DAILY 02/07/24 04/15/24 02/06/24 History tablet,extended release 24 hr tiotropium bromide 1.25 1 puff inhalation DAILY 02/07/24 04/15/24 02/06/24 History mcg/actuation mist for inhalation (Spiriva Respimat) venlafaxine 75 mg capsule,extended 75 mg PO DAILY 02/07/24 04/15/24 02/06/24 History release 24 hr Exam Height,Weight and Vital Signs: Height 5 ft 0.25 in Weight 54.431 kg Last Vital Signs Temp 908.5 F H 04/17/24 13:30 Pulse 78 04/17/24 13:30 Resp 16 04/17/24 13:30 BP 192/81 H 04/17/24 13:30 Pulse Ox 97 04/17/24 13:30 O2 Del Method Room Air 04/17/24 13:30 Airway Mallampati Class: II TM Dist: >3cm Neck ROM: Full Denture: Upper Heart: RRR Lungs: CTA Assessment and Plan Assessment Anesthesia Assessment: Anesthesia Plan Discussed and Chart Reviewed Final Anesthetic Review Family History of Problems with Anesthesia: No History of Problems with Anesthesia: No ASA Class: II Final Preanesthetic Review: Meds/Allgs Chart Reviewed, Consent Obtained/Reviewed, Anes Risks/Benef Reviewed and DNR Form (If Appl.) Patient Risk: Low Procedure Risk: Low Anesthetic Plan Anesthetic Plan: MAC: Disposition: Standard PACU
--- NOTE | 2024-04-17 14:19 | HO.ANESPROP2 ---
[facility] Active Problems Active Problems: All Active Problems Acute upper GI bleed (Acute) Past Medical History Medical History Pyloric channel ulcer Nephrolithiasis Common bile duct stone COPD (chronic obstructive pulmonary disease) Osteoporosis Hypertension Hypothyroidism Dementia V-tach Functional capacity: independent ambulation Family History Family history of problems with anesthesia: No Surgical History Surgical History Hx of cystoscopy Hx of tonsillectomy Hx of appendectomy Hx of tubal ligation History of esophagogastroduodenoscopy (EGD) History of ERCP History of Problems with Anesthesia: No Social History Social History Household Members: None Housing: House Do you presently have visiting nurse or other home services: No Patient Tobacco Use Status: Former Tobacco user Second Hand Smoke Exposure: No Use of substances other than those prescribed or required for medical reasons: No Are you DNR?: Yes Advance Directives: No Advance Directives Information Provided: Yes Advance Directives Date on File: 02/07/24 service: No Meds Allergies Allergy/AdvReac Type Severity Reaction Status Date / Time environmental allergies Allergy Intermediate Cough Verified 04/15/24 14:43 Active Medications: Current Medications Albuterol Sulfate (Albuterol Sulfate (0.083%) 2.5 Mg/3 Ml Vial.Neb) 2.5 mg INHALE ONCE PRN PRN Reason: Shortness of Breath/Wheezing Lactated Ringer's (Lr) 1,000 mls @ 100 mls/hr IVCONT .Q10H [place] Last Admin: 04/17/24 13:32 Dose: 100 mls/hr Home Medications ?Medication ?Instructions ?Recorded ?Confirmed ?Last Taken ?Type levothyroxine 75 mcg tablet 75 mcg PO DAILY 02/07/24 04/15/24 02/06/24 History memantine 10 mg tablet 10 mg PO DAILY 02/07/24 04/15/24 02/06/24 History memantine 5 mg tablet 5 mg PO BEDTIME 02/07/24 04/15/24 02/06/24 History metoprolol succinate 25 mg 12.5 mg PO DAILY 02/07/24 04/15/24 02/06/24 History tablet,extended release 24 hr tiotropium bromide 1.25 1 puff inhalation DAILY 02/07/24 04/15/24 02/06/24 History mcg/actuation mist for inhalation (Spiriva Respimat) venlafaxine 75 mg capsule,extended 75 mg PO DAILY 02/07/24 04/15/24 02/06/24 History release 24 hr Exam Height,Weight and Vital Signs: Height 5 ft 0.25 in Weight 54.431 kg Last Vital Signs Temp 908.5 F H 04/17/24 13:30 Pulse 78 04/17/24 13:30 Resp 16 04/17/24 13:30 BP 192/81 H 04/17/24 13:30 Pulse Ox 97 04/17/24 13:30 O2 Del Method Room Air 04/17/24 13:30 Airway Mallampati Class: II TM Dist: >3cm Neck ROM: Full Denture: Upper Heart: RRR Lungs: CTA Assessment and Plan Assessment Anesthesia Assessment: Anesthesia Plan Discussed Final Anesthetic Review Family History of Problems with Anesthesia: No History of Problems with Anesthesia: No ASA Class: II Final Preanesthetic Review: Meds/Allgs Chart Reviewed, Consent Obtained/Reviewed and Anes Risks/Benef Reviewed Patient Risk: Low Procedure Risk: Low Anesthetic Plan Anesthetic Plan: MAC: Disposition: Standard PACU
--- NOTE | 2024-04-17 14:33 | P.BOP_ITS ---
Brief Operative Note Date of Service: 04/17/24 Pre-op diagnosis: gastric ulcer Post-op diagnosis: same Procedure: egd Surgeon: Sharad Rodriguez MD Anesthesia: MAC Was an Biology Lecturer used for this Procedure?: No Estimated blood loss (mL): 2 Pathology: other Condition: stable Disposition: PACU
[2024-04-17 14:36] VITALS: BP 151/70; PULSE 98; RESP 16; TEMP 36.7; O2SAT 100
[2024-04-17 14:51] VITALS: BP 148/92; PULSE 92; RESP 14; TEMP 36.8; O2SAT 99
--- NOTE | 2024-04-17 16:51 | HO.POSTANES ---
Post Anesthesia Evaluation Post Anesthesia Evaluation Date of Service: 04/17/24 Vital Signs: Vital Signs Temp Pulse Resp BP Pulse Ox O2 Del Method 04/17/24 14:51 98.3 F 92 14 148/92 H 99 Room Air 04/17/24 14:36 98.1 F 98 16 151/70 H 100 Room Air 04/17/24 13:30 908.5 F H 78 16 192/81 H 97 Room Air Anesthesia: Monitored Mental Status: Awake Pain Control: Satisfactory Nausea/Vomiting: None Hydration: Adequate Anesthesia-Related Issues: No Anes. Related Issues
--- NOTE | 2024-04-17 18:13 | OP_ITS ---
DATE OF SERVICE: 04/17/2024 SURGEON: Sharad Rodriguez MD INDICATIONS: Gastric ulcer and history of GI bleeding. PREOPERATIVE DIAGNOSIS: POSTOPERATIVE DIAGNOSIS: PROCEDURE PERFORMED: Upper endoscopy with biopsy. ESTIMATED BLOOD LOSS: COMPLICATIONS: ANESTHESIA: Monitored anesthesia care. ASSISTANTS: SPECIMENS: DESCRIPTION OF PROCEDURE: A history and physical was performed. The risks and benefits of the procedure were explained to the patient and informed consent was obtained. The patient was placed in the left lateral decubitus position. The Olympus video gastroscope was introduced into the esophagus, stomach, and duodenum. Examination was performed and the scope was removed. She tolerated the procedure well and was returned to recovery area in stable condition. FINDINGS: Esophagus: The esophagus was normal. Stomach: The stomach was normal. Antral biopsies were obtained. Duodenum: The bulb and 2nd portion were normal. IMPRESSION: Gastric ulcer, healed. RECOMMENDATION: Follow up the biopsy results. MD MARITZA Cason/OBIL / [id number]
== END 2024-04-17 15:22 | disposition home or self-care (01) ==
PROVIDERS: PCP Internal Medicine; Visit Provider Internal Medicine Gastroenterology
PROC: 0DJ08ZZ Inspection of Upper Intestinal Tract, Via Natural or Artificial Opening Endoscopic (ICD-10-PCS; CPT 43235; principal; 2024-04-17 13:50)
DX: K29.50 Unspecified chronic gastritis without bleeding (principal); K25.7 Chronic gastric ulcer without hemorrhage or perforation; I10 Essential (primary) hypertension; D64.9 Anemia, unspecified; J44.9 Chronic obstructive pulmonary disease, unspecified; Z87.891 Personal history of nicotine dependence; Z98.51 Tubal ligation status; Z87.442 Personal history of urinary calculi; Z79.899 Other long term (current) drug therapy
CPT/HCPCS: 43239; 88305; 88313; 88342; J1596; J2704

== ENCOUNTER 2024-05-09 14:38 | Emergency (ER) | payer MEDICARE, OTHER, SELFPAY ==
--- NOTE | ~2024-05-09 | XR_ITS ---
EXAMINATION: XR CHEST CLINICAL INFORMATION: Chest pain and shortness of breath. COMPARISON: Chest radiographs dated 02/06/2024. TECHNIQUE: 2 views of the chest were obtained. FINDINGS: The cardiac silhouette is normal in size. There is calcific atherosclerotic disease of the aorta. There is no consolidation. No pleural effusion or pneumothorax. No acute osseous abnormality. There are surgical clips overlying the upper abdomen. XR/XR chest 2V IMPRESSION: No acute cardiopulmonary disease.
[2024-05-09 14:42] VITALS: BP 159/78; PULSE 87; RESP 19; TEMP 36.4; O2SAT 94; BMI 22.7
--- NOTE | 2024-05-09 14:43 | ED_ITS ---
HPI - General Adult General Chief complaint: Recheck/Abnormal Lab/Rx Stated complaint: abnormal ekg Time Seen by Provider: 05/09/24 18:35 Related Data Home Medications ?Medication ?Instructions ?Recorded ?Confirmed levothyroxine 75 mcg tablet 75 mcg PO DAILY 02/07/24 04/15/24 memantine 10 mg tablet 10 mg PO DAILY 02/07/24 04/15/24 memantine 5 mg tablet 5 mg PO BEDTIME 02/07/24 04/15/24 metoprolol succinate 25 mg 12.5 mg PO DAILY 02/07/24 04/15/24 tablet,extended release 24 hr tiotropium bromide 1.25 1 puff inhalation DAILY 02/07/24 04/15/24 mcg/actuation mist for inhalation (Spiriva Respimat) venlafaxine 75 mg capsule,extended 75 mg PO DAILY 02/07/24 04/15/24 release 24 hr Previous Rx's ?Medication ?Instructions ?Recorded omeprazole 40 mg capsule,delayed 40 mg PO BID #60 caps 02/10/24 release Allergies Allergy/AdvReac Type Severity Reaction Status Date / Time environmental allergies Allergy Intermediate Cough Verified 05/09/24 14:46 [facility] Past Medical History Medical History Pyloric channel ulcer Nephrolithiasis Common bile duct stone COPD (chronic obstructive pulmonary disease) Osteoporosis Hypertension Hypothyroidism Dementia V-tach Surgical History Hx of cystoscopy Hx of tonsillectomy Hx of appendectomy Hx of tubal ligation History of esophagogastroduodenoscopy (EGD) History of ERCP Social History Social History Household Members: None Housing: House Do you presently have visiting nurse or other home services: No Patient Tobacco Use Status: Former Tobacco user Smoked in Last 30 Days: No Second Hand Smoke Exposure: No Advance Directives: Yes Advance Directives on File: Yes Advance Directives Date on File: 02/07/24 Do you have a plan to hurt others: No Plan service: No Physical Exam ED Vital Signs: Vital Signs - 24 hr 05/09/24 14:42 05/09/24 18:49 05/09/24 20:23 Temperature 97.5 F 98.5 F 98.7 F Pulse Rate 87 89 92 Respiratory Rate 19 34 H 22 H Blood Pressure 159/78 H 166/69 H 159/75 H Pulse Oximetry 94 94 94 Oxygen Delivery Method Room Air Room Air Room Air 05/09/24 21:10 Temperature 98.1 F Pulse Rate 93 Respiratory Rate 18 Blood Pressure 158/75 H Pulse Oximetry 92 Oxygen Delivery Method Room Air BMI result Body Mass Index 22.7 Course Course Course Narrative: This is an RME: Additional HPI, ROS, PE not included below will be deferred to primary provider. RME assessment and note performed by: Michelle Baltazar PA-C This is a 47-ifyb-iws-female with a hx of CAD, HTN, hypothyroidism, dementia here with son, Misha, with complaints of abnormal EKG. She was feeling run down over the last few days. She has an appointment and noted to have changes from her previous EKG. Endorsing some shortness of breath. Patient presents with EKG which reveals ST depression seen in V4 through V6, advised to get repeat EKG stat. Changes seen on previous EKG, reviewed EKG with Dr. Witt. Plan: EKG, labs, CXR Reevaluation(s) Reevaluation #1: See other note by primary provider, Dr. Asencio. Medical Decision Making Lab Data 05/09/24 14:59 05/09/24 14:59 Labs: Lab Results 05/09/24 05/09/24 05/09/24 Range/Units 14:59 18:54 19:26 WBC 14.2 H (4.8-10.8) X10*3/uL RBC 4.54 (4.20-5.50) X10*6/uL Hgb 14.0 (12.0-16.0) g/dl Hct 42.2 (37.0-47.0) % MCV 93.0 (80.0-98.0) fL MCH 30.8 (27.0-33.0) pg MCHC 33.2 (31.0-35.0) g/dl RDW 14.2 (11.0-16.0) % Plt Count 242 (160-400) X10*3/uL MPV 8.5 L (9.4-12.3) fL Immature Gran % (Auto) 0.5 H (0.0-0.4) % Neut % (Auto) 85.8 H (45-73) % Lymph % (Auto) 5.1 L (20-40) % [place] % (Auto) 8.2 (2-11) % Eos % (Auto) 0.1 (0-4) % Baso % (Auto) 0.3 (0-2) % Lymph # (Auto) 0.7 L (1.2-4.9) X10*3/uL [place] # (Auto) 1.2 (0.1-1.2) X10*3/uL Eos # (Auto) 0.0 (0.0-0.4) X10*3/uL Baso # (Auto) 0.0 (0.0-0.2) X10*3/uL Abs Immat Gran (auto) 0.07 H (0.00-0.03) X10*3/uL Absolute Neuts (auto) 12.2 H (2.0-8.3) x10*3/uL Absolute Nucleated RBC 0.000 (0.0-0.012) X10*3/uL Nucleated RBC % (auto) 0.0 (0.0-0.2) /100WBC PT 14.4 H (11.1-13.3) SEC INR 1.2 H (0.9-1.1) APTT 29.1 (26.0-36.8) SEC Sodium 136 (135-145) mmol/L Potassium 4.1 (3.3-5.1) mmol/L Chloride 99 (96-108) mmol/L Carbon Dioxide 30 H (22-29) mmol/L Anion Gap 11 L (12-20) BUN 9 (9-16) mg/dL Creatinine 0.74 (0.5-1.4) mg/dL Estim Creat Clear Calc 37.7 Estimated GFR > 60 Random Glucose 105 (60-115) mg/dL Calcium 9.6 (8.4-10.2) mg/dL Magnesium 1.8 (1.6-2.6) mg/dL Total Bilirubin 0.6 (0.0-1.0) mg/dL Direct Bilirubin 0.2 (0.0-0.5) mg/dL AST 21 (5-31) U/L ALT 13 (0-31) U/L Alkaline Phosphatase 83 (39-117) U/L Troponin I High Sens 10.4 D 11.3 (<3.5-17.0) ng/L Total Protein 7.7 (6.5-8.0) g/dL Albumin 4.2 (3.5-5.0) g/dL Urine Color Yellow Urine Appearance Clear Urine pH 6.0 (5.0-9.0) Ur Specific [place] 1.015 (1.005-1.025) Urine Protein 30 (1+) H (Neg-Trace) mg/dL Urine Glucose (UA) Negative (Negative) mg/dL Urine Ketones Negative (Negative) mg/dL Urine Blood Large (3+) H (Negative) Urine Nitrite Negative (Negative) Ur Leukocyte Esterase Moderate (2+) H (Negative) Urine RBC >20 H (0-2) /HPF Urine WBC 6-10 H (0-5) /HPF Ur Squamous Epith Cells 0-2 (0-2) /HPF Urine Bacteria None Seen (None Seen) Hyaline Casts 0-2 (0-2) /LPF Influenza Type A (PCR) NEGATIVE (Negative) Influenza Type B (PCR) NEGATIVE (Negative) RSV RNA Qual (PCR) NEGATIVE (Negative) SARS-CoV-2 RNA (RT-PCR) NEGATIVE (Negative) Discharge Plan Discharge Clinical Impression: Abnormal ECG Patient Disposition: Home, Self-Care Instructions: Coronary Artery Disease (DC) Additional Instructions: Possibly have coronary artery disease you had workup done as outpatient Continue medications Follow-up with your mexican food maker hand Report to the ER if chest pain Prescriptions: No Action venlafaxine 75 mg capsule,extended release 24hr 75 mg PO DAILY levothyroxine 75 mcg tablet 75 mcg PO DAILY metoprolol succinate 25 mg tablet extended release 24 hr 12.5 mg PO DAILY memantine 10 mg tablet 10 mg PO DAILY Spiriva Respimat 1.25 mcg/actuation mist 1 puff INHALATION DAILY memantine 5 mg Tablet 5 mg PO BEDTIME omeprazole 40 mg capsule,delayed release(DR/EC) 40 mg PO BID Qty: 60 0RF Interventions: ED Discharge Assessment Last Done: 05/09/24 21:10 Discharge Date/Time: 05/09/24 21:34 Print Language: Divehi
--- NOTE | 2024-05-09 14:44 | ECG_ITS ---
Test Reason : WEAKNESS Blood Pressure : / mmHG Vent. Rate : 089 BPM Atrial Rate : 089 BPM P-R Int : 156 ms QRS Dur : 066 ms QT Int : 338 ms P-R-T Axes : 012 045 -17 degrees QTc Int : 411 ms Normal sinus rhythm ST & T wave abnormality, consider lateral ischemia Abnormal ECG When compared with ECG of 14-FEB-2024 15:18, ST depression noted in lateral leads Referred By: Michelle Baltazar Electronically Signed By:UMA BLACKMON
--- OUTSIDE RECORDS SUMMARY | 2024-05-09 14:55 | XMS_ITS | Patient Health Record ---
Author Organization [facility] Address [address] [place] [address] Care Team Providers Care College Advisor Name Role Phone Jayden CORTES, Bret Primary Care Provider Sharad Valero Jr Unavailable [phone] ALLERGIES No Known Allergies RESULTS Component Value Reference Range Notes Pathology Reviewed date:02/14/2024 09:33:31 AM Interpretation: Performing Lab:[facility], [address] [place] [id number] Notes/Report: Type and Screen Reviewed date:2024 04:29:18 PM Interpretation: Performing Lab:[facility], [address] [place] [id number] Notes/Report: Results at Issue Units as of [...] Cells Reviewed date:2024 04:29:23 PM Interpretation: Performing Lab:[facility], [address] [place] [id number] Notes/Report: Red Blood Cells [id number] ON RC Red Blood Cells TRANSFUSED 02/07/24 0809 Red Blood Cells [id number] OP RC Red Blood Cells TRANSFUSED 02/09/24 1130 Red Blood Cells [id number] OP RC Red Blood Cells TRANSFUSED 02/07/242041 Pathology Reviewed date:05/02/2024 11:18:41 AM Interpretation: Performing Lab:[facility], [address] [place] [phone] Notes/Report: REASON FOR REFERRAL No Information MEDICATIONS Medication [...] Notes Problem Epigastric pain (R10.13) Active confirmed 62938133 Problem Acute gastric ulcer with hemorrhage (K25.0) Active confirmed 00241036 Problem Gastroesophageal reflux disease without esophagitis (K21.9) Active confirmed [id number] Problem Esophageal spasm (K22.4) Active confirmed 53775929 Problem Common bile duct calculi (K80.50) Active confirmed 759238024 Problem Gastric ulcer (K25.9) Active confirmed Gastric ulcer (385417569) Problem Secondary hypertension (I15.9) Active confirmed 08536201 VITAL SIGNS Temperature 97.3 degrees Fahrenheit 02/19/2024 Blood pressure diastolic 00 mm Hg 02/19/2024 Height 60.25 in 02/19/2024 Blood pressure systolic 000 mm Hg 02/19/2024 Weight 116 lbs 02/19/2024 BMI 22.46 kg/m2 02/19/2024 Encounters Encounter Location Date Provider Diagnosis [facility] [address] [place] [id number] 04/17/2024 Sharad Rodriguez Jr Gastric ulcer K25.9 [facility] [address] [place] [phone] 02/19/2024 Sharad Rodriguez Jr Acute gastric ulcer with hemorrhage K25.0 [facility] [address] [place] [phone] 2024 Sharad Rodriguez Jr [facility] [address] [place] [phone] 02/14/2024 Sharad Rodriguez Jr [facility] [address] [place] [phone] 02/14/2024 Sharad Rodriguez Jr [facility] [address] [place] [phone] 03/08/2024 Sharad Rodriguez Jr [facility] [address] [place] [phone] 05/02/2024 Sharad Rodriguez Jr ASSESSMENTS Encounter Date Diagnosis Assessment Notes Treatment Notes Treatment Clinical Notes 04/17/2024 Gastric ulcer (ICD-10 - K25.9) 02/19/2024 Acute gastric ulcer with hemorrhage (ICD-10 - K25.0) Gastric tissue biopsy and culture material was printed PLAN OF TREATMENT Future Test Test Name Order Date COLONOSCOPY 02/01/2012 UPPER GI ENDOSCOPY 10/10/2018 ERCP REMOVAL OF STONES 10/10/2018 UPPER GI ENDOSCOPY 02/19/2024 Insurance Providers Payer Name Payer Address Payer Phone Subscriber Number Group Number Insured Name Patient Relationship to Insured Coverage Start Date Coverage End Date MEDICARE OF [employer] [address] [place] [id number] ZA KENNY ChristopherE Self - patient is the insured [facility] [address] [place] [address] [id number] NADIR GALEANO Self - patient is the [...]
[2024-05-09 15:05] LABS: MANUAL DIFF FLAG NO
[2024-05-09 15:09] LABS: Basophils Percent Auto 0.3 % (0-2); Eosinophils Percent Auto 0.1 % (0-4); Hematocrit 42.2 % (37.0-47.0); Imm Gran Abs Auto 0.07 X10*3/uL (0.00-0.03); Imm Gran Pct Auto 0.5 % (0.0-0.4); Lymphocytes Absolute Auto 0.7 X10*3/uL (1.2-4.9); Lymphocytes Percent Auto 5.1 % (20-40); Mean Corpuscular HGB Conc 33.2 g/dl (31.0-35.0); Mean Corpuscular Hemoglobin 30.8 pg (27.0-33.0); Mean Platelet Volume 8.5 fL (9.4-12.3); Monocytes Absolute Auto 1.2 X10*3/uL (0.1-1.2); Monocytes Percent Auto 8.2 % (2-11); Neutrophils Absolute Auto 12.2 x10*3/uL (2.0-8.3); Neutrophils Percent Auto 85.8 % (45-73); Platelet Count 242 X10*3/uL (160-400); Red Blood Count 4.54 X10*6/uL (4.20-5.50); Red Cell Distribution Width 14.2 % (11.0-16.0); White Blood Count 14.2 X10*3/uL (4.8-10.8)
[2024-05-09 15:14] LABS: INTERNATIONAL NORM RATIO 1.2 (0.9-1.1); Prothrombin Time 14.4 SEC (11.1-13.3)
[2024-05-09 15:16] LABS: Partial Thromboplastin Time 29.1 SEC (26.0-36.8)
[2024-05-09 15:29] LABS: Alanine Aminotransferase 13 U/L (0-31); Albumin Level 4.2 g/dL (3.5-5.0); Alkaline Phosphatase 83 U/L (39-117); Anion Gap 11 (12-20); Aspartate Amino Transferase 21 U/L (5-31); Bilirubin Direct 0.2 mg/dL (0.0-0.5); Bilirubin Total 0.6 mg/dL (0.0-1.0); Blood Urea Nitrogen 9 mg/dL (9-16); Calcium 9.6 mg/dL (8.4-10.2); Carbon Dioxide 30 mmol/L (22-29); Chloride 99 mmol/L (96-108); Creatinine Clr Calc Pharmacy 37.7; Estimated Glomerular Filt Rate > 60; Glucose Random 105 mg/dL (60-115); Magnesium 1.8 mg/dL (1.6-2.6); Potassium 4.1 mmol/L (3.3-5.1); Sodium 136 mmol/L (135-145); Total Protein 7.7 g/dL (6.5-8.0); Troponin-I High Sensitivity 10.4 ng/L (<3.5-17.0)
[2024-05-09 15:44] LABS: Influenza A PCR NEGATIVE (Negative); Influenza B PCR NEGATIVE (Negative); Resp Syncy Virus RNA Qual PCR NEGATIVE (Negative); SARS COV2 PCR INHOUSE NEGATIVE (Negative)
[2024-05-09 18:49] VITALS: BP 166/69; PULSE 89; RESP 34; TEMP 36.9; O2SAT 94
--- NOTE | 2024-05-09 18:50 | ED_ITS ---
HPI - General Adult General Chief complaint: Recheck/Abnormal Lab/Rx Stated complaint: abnormal ekg Time Seen by Provider: 05/09/24 18:35 Source: patient Mode of arrival: ambulatory Limitations: no limitations History of Present Illness ED Provider: marvin GONZALES narrative: Patient 89 years old history of hypertension, hypothyroidism, dementia, COPD, bleeding pyloric ulcer comes here as been feeling weak and tired for last few days had a EKG done at doctor's office showed ST depression in lateral leads which is new as compared to old EKGs, patient denied any chest pain no shortness a breath no leg edema no cough or fever or chills no urinary complaints Related Data Home Medications ?Medication ?Instructions ?Recorded ?Confirmed levothyroxine 75 mcg tablet 75 mcg PO DAILY 02/07/24 04/15/24 memantine 10 mg tablet 10 mg PO DAILY 02/07/24 04/15/24 memantine 5 mg tablet 5 mg PO BEDTIME 02/07/24 04/15/24 metoprolol succinate 25 mg 12.5 mg PO DAILY 02/07/24 04/15/24 tablet,extended release 24 hr tiotropium bromide 1.25 1 puff inhalation DAILY 02/07/24 04/15/24 mcg/actuation mist for inhalation (Spiriva Respimat) venlafaxine 75 mg capsule,extended 75 mg PO DAILY 02/07/24 04/15/24 release 24 hr Previous Rx's ?Medication ?Instructions ?Recorded omeprazole 40 mg capsule,delayed 40 mg PO BID #60 caps 02/10/24 release Allergies Allergy/AdvReac Type Severity Reaction Status Date / Time environmental allergies Allergy Intermediate Cough Verified 05/09/24 14:46 Review of Systems 2 Review of Systems: Yes all other systems are reviewed and are negative PMF Past Medical History Medical History Pyloric channel ulcer Nephrolithiasis Common bile duct stone COPD (chronic obstructive pulmonary disease) Osteoporosis Hypertension Hypothyroidism Dementia V-tach Surgical History Hx of cystoscopy Hx of tonsillectomy Hx of appendectomy Hx of tubal ligation History of esophagogastroduodenoscopy (EGD) History of ERCP Social History Social History Household Members: None Housing: House Do you presently have visiting nurse or other home services: No Patient Tobacco Use Status: Former Tobacco user Smoked in Last 30 Days: No Second Hand Smoke Exposure: No Advance Directives: Yes Advance Directives on File: Yes Advance Directives Date on File: 02/07/24 Do you have a plan to hurt others: No Plan service: No Physical Exam ED Vital Signs: Vital Signs - 24 hr 05/09/24 14:42 05/09/24 18:49 05/09/24 20:23 Temperature 97.5 F 98.5 F 98.7 F Pulse Rate 87 89 92 Respiratory Rate 19 34 H 22 H Blood Pressure 159/78 H 166/69 H 159/75 H Pulse Oximetry 94 94 94 Oxygen Delivery Method Room Air Room Air Room Air BMI result Body Mass Index 22.7 Appearance: Alert. Oriented X3. No acute distress. Eyes: PERRLA, No Nystagmus ENT: Pharynx normal. Oral Mucosa moist Neck: Normal inspection. Neck supple. CVS: Normal heart rate and rhythm. Pulses normal. Respiratory: No respiratory distress. Equal air entry bilateral, no wheezing/rales/rhonchi Abdomen: Soft and nontender. Bowel sounds are present, no mass palpable, no CVA tenderness Skin: Skin warm and dry. Normal skin color. Normal skin turgor. Extremities: No lower extremity edema. No calf tenderness Neuro: Oriented X 3. No motor deficit. No sensory deficit.No cerebellar signs , cranial nerves II-XII intact Medical Decision Making Medical Decision Making [facility] Narrative: Patient with ischemic changes in lateral leads with no delta change in troponin patient had stress test and echo done within last 6 months at [facility] per daughter who works as a RN was negative patient is asymptomatic will discharge patient home advised to follow up with technical fellow/PCP patient can not take aspirin because of upper GI bleed in 02/17 Differential Diagnosis Differential Diagnoses: The differential diagnosis associated with the presentation includes ACS/CAD Lab Data [facility] Lab Attestation statement: I reviewed the patient's lab results. 05/09/24 14:59 05/09/24 14:59 Labs: Lab Results 05/09/24 05/09/24 05/09/24 Range/Units 14:59 18:54 19:26 WBC 14.2 H (4.8-10.8) X10*3/uL RBC 4.54 (4.20-5.50) X10*6/uL Hgb 14.0 (12.0-16.0) g/dl Hct 42.2 (37.0-47.0) % MCV 93.0 (80.0-98.0) fL MCH 30.8 (27.0-33.0) pg MCHC 33.2 (31.0-35.0) g/dl RDW 14.2 (11.0-16.0) % Plt Count 242 (160-400) X10*3/uL MPV 8.5 L (9.4-12.3) fL Immature Gran % (Auto) 0.5 H (0.0-0.4) % Neut % (Auto) 85.8 H (45-73) % Lymph % (Auto) 5.1 L (20-40) % [place] % (Auto) 8.2 (2-11) % Eos % (Auto) 0.1 (0-4) % Baso % (Auto) 0.3 (0-2) % Lymph # (Auto) 0.7 L (1.2-4.9) X10*3/uL [place] # (Auto) 1.2 (0.1-1.2) X10*3/uL Eos # (Auto) 0.0 (0.0-0.4) X10*3/uL Baso # (Auto) 0.0 (0.0-0.2) X10*3/uL Abs Immat Gran (auto) 0.07 H (0.00-0.03) X10*3/uL Absolute Neuts (auto) 12.2 H (2.0-8.3) x10*3/uL Absolute Nucleated RBC 0.000 (0.0-0.012) X10*3/uL Nucleated RBC % (auto) 0.0 (0.0-0.2) /100WBC PT 14.4 H (11.1-13.3) SEC INR 1.2 H (0.9-1.1) APTT 29.1 (26.0-36.8) SEC Sodium 136 (135-145) mmol/L Potassium 4.1 (3.3-5.1) mmol/L Chloride 99 (96-108) mmol/L Carbon Dioxide 30 H (22-29) mmol/L Anion Gap 11 L (12-20) BUN 9 (9-16) mg/dL Creatinine 0.74 (0.5-1.4) mg/dL Estim Creat Clear Calc 37.7 Estimated GFR > 60 Random Glucose 105 (60-115) mg/dL Calcium 9.6 (8.4-10.2) mg/dL Magnesium 1.8 (1.6-2.6) mg/dL Total Bilirubin 0.6 (0.0-1.0) mg/dL Direct Bilirubin 0.2 (0.0-0.5) mg/dL AST 21 (5-31) U/L ALT 13 (0-31) U/L Alkaline Phosphatase 83 (39-117) U/L Troponin I High Sens 10.4 D 11.3 (<3.5-17.0) ng/L Total Protein 7.7 (6.5-8.0) g/dL Albumin 4.2 (3.5-5.0) g/dL Urine Color Yellow Urine Appearance Clear Urine pH 6.0 (5.0-9.0) Ur Specific [place] 1.015 (1.005-1.025) Urine Protein 30 (1+) H (Neg-Trace) mg/dL Urine Glucose (UA) Negative (Negative) mg/dL Urine Ketones Negative (Negative) mg/dL Urine Blood Large (3+) H (Negative) Urine Nitrite Negative (Negative) Ur Leukocyte Esterase Moderate (2+) H (Negative) Urine RBC >20 H (0-2) /HPF Urine WBC 6-10 H (0-5) /HPF Ur Squamous Epith Cells 0-2 (0-2) /HPF Urine Bacteria None Seen (None Seen) Hyaline Casts 0-2 (0-2) /LPF Influenza Type A (PCR) NEGATIVE (Negative) Influenza Type B (PCR) NEGATIVE (Negative) RSV RNA Qual (PCR) NEGATIVE (Negative) SARS-CoV-2 RNA (RT-PCR) NEGATIVE (Negative) Independent Interpretation I performed an independent interpretation of an: EKG Interpretation: Normal sinus rhythm heart rate [address] depression in lateral leads which are more marked than in 02/17 Discharge Plan Discharge Clinical Impression: Abnormal ECG Patient Disposition: Home, Self-Care Instructions: Coronary Artery Disease (DC) Additional Instructions: Possibly have coronary artery disease you had workup done as outpatient Continue medications Follow-up with your technical fellow Report to the ER if chest pain Prescriptions: No Action venlafaxine 75 mg capsule,extended release 24hr 75 mg PO DAILY levothyroxine 75 mcg tablet 75 mcg PO DAILY metoprolol succinate 25 mg tablet extended release 24 hr 12.5 mg PO DAILY memantine 10 mg tablet 10 mg PO DAILY Spiriva Respimat 1.25 mcg/actuation mist 1 puff INHALATION DAILY memantine 5 mg Tablet 5 mg PO BEDTIME omeprazole 40 mg capsule,delayed release(DR/EC) 40 mg PO BID Qty: 60 0RF Print Language: Bengali
[2024-05-09 19:04] LABS: Appearance Urine Clear; Color Urine Yellow; Glucose Urine UA Negative (Negative); Leukocyte Esterase Urine Moderate (2+) (Negative); Nitrite Urine Negative (Negative); Specific Gravity - Urine 1.015 (1.005-1.025); UMIC TRIGGER UACC YES; Urine Blood Large (3+) (Negative); Urine Ketones Negative (Negative); Urine Protein 30 (1+) mg/dL (Neg-Trace)
[2024-05-09 19:11] LABS: Bacteria Urine None Seen (None Seen); Hyaline Casts Urine 0-2 /LPF (0-2); RBC Urine >20 /HPF (0-2); Squamous Epithelial Cell Urine 0-2 /HPF (0-2); UACC Culture Trigger YES
[2024-05-09 19:51] LABS: Troponin-I High Sensitivity 11.3 ng/L (<3.5-17.0)
[2024-05-09 20:23] VITALS: BP 159/75; PULSE 92; RESP 22; TEMP 37.1; O2SAT 94
[2024-05-09 21:10] VITALS: BP 158/75; PULSE 93; RESP 18; TEMP 36.7; O2SAT 92
== END 2024-05-09 21:34 | disposition home or self-care (01) ==
PROVIDERS: Physician Assistant Medical; Emergency Provider Internal Medicine; PCP Internal Medicine
DX: R94.31 Abnormal electrocardiogram [ECG] [EKG] (principal); I10 Essential (primary) hypertension; J44.9 Chronic obstructive pulmonary disease, unspecified; F03.90 Unspecified dementia, unspecified severity, without behavioral disturbance, psychotic disturbance, mood disturbance, and anxiety
CPT/HCPCS: 0241U; 36415; 71046; 80048; 80076; 81001; 81003; 83735; 84484; 85025; 85610; 85730; 87086; 93005; 99284

== ENCOUNTER → 2024-05-09 14:44 | Outpatient (BNV) | payer MEDICARE, OTHER, SELFPAY | PROVIDERS: Emergency Provider Internal Medicine; PCP Internal Medicine; Visit Provider Internal Medicine | DX: R94.31 Abnormal electrocardiogram [ECG] [EKG] (principal); R53.1 Weakness | CPT/HCPCS: 93010 ==

== ENCOUNTER 2024-05-11 12:32 | Inpatient (IN) | payer MEDICARE, OTHER, SELFPAY ==
[2024-05-11] VITALS (8 sets, daily range): BP systolic 105–169; BP diastolic 51–84; PULSE 86–98; RESP 16–22; TEMP 37.1; O2SAT 93–98; BMI 22.7
--- NOTE | ~2024-05-11 | CT_ITS ---
EXAMINATION: CT ANGIOGRAM OF THE CHEST WITH AND WITHOUT CONTRAST (CT PULMONARY ANGIOGRAM FOR PE) CLINICAL INFORMATION: Hypoxia. Possible right lower lobe infiltrate. Evaluate for pulmonary embolism. COMPARISON: Most recent chest radiograph dated 05/11/2024 and CTA chest dated 02/14/2024. TECHNIQUE: Prior to contrast administration, noncontrast localization images were obtained. Subsequently, multidetector volumetric imaging was performed from the thoracic inlet to below the diaphragms following the administration of 65 mL Omnipaque 350 intravenous contrast. No contrast reaction reported Sagittal, coronal, and MIP oblique sagittal reformatted images were obtained on the CT workstation, uploaded to PACS, and reviewed. This CT examination was performed using dose optimization techniques as appropriate, variously including the following: *Automated exposure control *Adjustment of mA and/or kV according to patient size (this includes techniques or standardized protocols for targeted exams where dose is matched to indication/reason for exam; i.e. extremities or head) *Use of iterative reconstruction technique Total exam dose-length product: 214 mGy-cm. FINDINGS: QUALITY OF STUDY/CONTRAST BOLUS: Satisfactory. PULMONARY ARTERIES: No pulmonary emboli. THORACIC AORTA: No thoracic aortic dilatation or dissection. Atherosclerotic calcifications. LUNG: Emphysematous changes are redemonstrated with chronic interstitial prominence. Patchy irregular areas of tree-in-bud opacities within the posterior aspect of the right upper lobe and extending to the right lung apex, new when compared to the prior examination. Findings could represent a minimal infectious or inflammatory process. Biapical subpleural scarring is unchanged. No new pulmonary nodule or mass. The central airways are patent. PLEURA: No pleural effusion or pneumothorax. MEDIASTINUM: Normal heart size. No pericardial effusion. No hilar or mediastinal lymphadenopathy. No evidence of septal bowing or right heart strain. CORONARY ARTERY CALCIFICATION: Present. CHEST WALL/AXILLA: No axillary or internal mammary lymphadenopathy. OSSEOUS STRUCTURES: No acute or suspicious osseous abnormality. UPPER ABDOMEN: Hepatic parenchymal calcification, unchanged. Partially visualized left renal cysts and calcifications, unchanged. No reflux of contrast into the hepatic veins to suggest elevated right heart pressures. CT/CT angio chest PE protocol IMPRESSION: 1. No CT angiographic evidence of acute pulmonary embolism. 2. Emphysematous changes with chronic interstitial prominence, similar when compared to the prior examination. New, patchy areas of tree-in-bud opacities within the posterior aspect of the right upper lobe and extending to the right lung apex, which could represent a minimal infectious or inflammatory process. 3. No new pulmonary nodule, mass, or airspace consolidation. VTE: Negative.
--- NOTE | ~2024-05-11 | XR_ITS ---
EXAMINATION: XR CHEST CLINICAL INFORMATION: Cough, shortness of breath COMPARISON: Chest radiograph 05/09/2024 TECHNIQUE: 2 views of the chest were obtained. FINDINGS: Mild right apical pleural parenchymal scarring again seen with scattered coarse reticular opacities, likely sequela of chronic lung disease. No focal consolidation. Minimal blunting of the bilateral costophrenic angles, favored to related to increased lung volumes. No significant pleural effusion or pneumothorax. Cardiomediastinal silhouette is unchanged. XR/XR chest 2V IMPRESSION: Redemonstrated sequela of chronic lung disease without acute cardiopulmonary abnormality
--- NOTE | 2024-05-11 12:39 | ECG_ITS ---
Test Reason : FALL Blood Pressure : / mmHG Vent. Rate : 089 BPM Atrial Rate : 089 BPM P-R Int : 154 ms QRS Dur : 074 ms QT Int : 352 ms P-R-T Axes : 061 039 067 degrees QTc Int : 428 ms Sinus rhythm with marked sinus arrhythmia Nonspecific ST and T wave abnormality Abnormal ECG When compared with ECG of 09-MAY-2024 14:49, No significant change was found Referred By: Tanya Smith Electronically Signed By:UMA BLACKMON
--- NOTE | 2024-05-11 12:39 | ED.SOB ---
HPI - SOB/Dyspnea General Chief Complaint: Dyspnea Stated Complaint: fever, weakness, cough, sob Time Seen by Provider: 05/11/24 13:54 Source: family (Daughter) Mode of arrival: ambulatory Limitations: no limitations History of Present Illness ED Provider: Dr. Savage Castro HPI Narrative: 89-year-old female with a history of dementia, hypertension, COPD, hypothyroidism who was brought to emergency department by her daughter for evaluation of elevated respiratory rate, shortness of breath, weakness, cough, low O2 saturations of 82% at home and fever with a T-max of 100.1 degrees. The patient's daughter is a telemetry nurse a [facility] and was able to give me very detailed information about the patient's presentation. The patient had a routine care visit with Dr. Carpenter on , 05/09/2024. Dr. Carpenter did a EKG which showed a change from the patient's baseline therefore he brought her over to the emergency department for evaluation. I did review the ED note from 05/09/2024. The patient was asymptomatic. Patient's workup was unremarkable with a high sensitive troponin being 11.3. According to the daughter, on 05/09/2024 the patient complained of a sore throat. Since that time the patient has been extremely weak. She may have had a fall landing on her back but this was unwitnessed since the patient lives alone. Over the past 24 hours the patient's weakness is gotten worse. The patient has had increased shortness of breath and has had a productive sounding cough. Patient's maximum temperature at home was 100.1 degrees F. the daughter noted that the patient's respiratory rate is been high as 34 and they did know low O2 saturations in the 82-84% on room air. The patient does not wear oxygen for her COPD. The daughter was concerned that the patient may have had an aspiration pneumonia secondary to the fall and brought the patient to the emergency department for evaluation. Related Data Home Medications ?Medication ?Instructions ?Recorded ?Confirmed levothyroxine 75 mcg tablet 75 mcg PO DAILY 02/07/24 04/15/24 memantine 10 mg tablet 10 mg PO DAILY 02/07/24 04/15/24 memantine 5 mg tablet 5 mg PO BEDTIME 02/07/24 04/15/24 metoprolol succinate 25 mg 12.5 mg PO DAILY 02/07/24 04/15/24 tablet,extended release 24 hr tiotropium bromide 1.25 1 puff inhalation DAILY 02/07/24 04/15/24 mcg/actuation mist for inhalation (Spiriva Respimat) venlafaxine 75 mg capsule,extended 75 mg PO DAILY 02/07/24 04/15/24 release 24 hr Previous Rx's ?Medication ?Instructions ?Recorded omeprazole 40 mg capsule,delayed 40 mg PO BID #60 caps 02/10/24 release Allergies Allergy/AdvReac Type Severity Reaction Status Date / Time environmental allergies Allergy Intermediate Cough Verified 05/11/24 12:43 Review of Systems Review of Systems: Yes all other systems are reviewed and are negative [facility] Past Medical History [facility] Narrative: Social history: The patient lives at home alone. She is a former smoker and stop smoking cigarettes 20 years prior but has a greater than 40 pack-year history of smoking. She does not drink alcohol. She does not use drugs. Medical History Pyloric channel ulcer Nephrolithiasis Common bile duct stone COPD (chronic obstructive pulmonary disease) Osteoporosis Hypertension Hypothyroidism Dementia V-tach Surgical History Hx of cystoscopy Hx of tonsillectomy Hx of appendectomy Hx of tubal ligation History of esophagogastroduodenoscopy (EGD) History of ERCP Social History Social History Household Members: None Housing: House Do you presently have visiting nurse or other home services: No Patient Tobacco Use Status: Former Tobacco user Second Hand Smoke Exposure: No Advance Directives: Yes Advance Directives on File: Yes Advance Directives Date on File: 02/07/24 service: No Physical Exam Vital Signs: Vital Signs: Last Vital Signs Temp 98.7 F 05/11/24 12:37 Pulse 98 05/11/24 12:37 Resp 22 H 05/11/24 12:37 BP 105/51 L 05/11/24 12:37 Pulse Ox 94 05/11/24 12:37 O2 Del Method Room Air 05/11/24 12:37 BMI result Body Mass Index 22.7 Vital signs revealed elevated respiratory rate of 22, O2 saturation on room air was 94%. Nurse reports that the patient did have an O2 saturation that went down to 84% and the patient was placed on 2 L of nasal cannula with an O2 saturation of 94%. Exam: General: Awake, alert in no distress, pleasant and cooperative, oriented to person only, defers to her daughter to answer questions Head: Normocephalic, atraumatic EENT: PERRL, Lids normal, sclera normal, conjunctiva normal, nose normal , ears normal, throat without erythema or exudates Neck: Supple, no adenopathy Lung: Patient has rales and rhonchi at the right base with the left base being clear, good inspiratory and expiratory flow, no wheezing Chest: symmetric movement, nontender Heart: regular rate and rhythm, normal S1, S2 no murmurs or rubs Abdomen: soft, non-tender, nondistended, normal bowel sounds Back: Patient does have tenderness palpation of the thoracic vertebrae and thoracic paraspinal muscles, no ecchymosis or hematomas noted Extremities: no deformities, moves all extremities symmetrically Neuro: Awake, alert, oriented to person, normal speech, cranial nerves intact, moves all extremities symmetrically Psych: Pleasant, cooperative Course Course Course Narrative: This is a Rapid Medical Examination (RME) performed by Bishop Smith PA-C in triage. Full HPI, ROS, assessment and treatment plan per primary provider in the Main ED. 89 yo female with history of HTN, hypothyroidism, dementia, COPD who presents to the ER for evaluation of 4 days of worsening SOB, weakness, cough, fatigue. temp 100.5 at home and got 1000 mg tylenol this morning by her daughter. in triage SpO2 93-96%, no resp distress. decreased breath sounds in the RLL. Plan: to go back to treatment room - CXR, viral studies, EKG, labs Medications Administered Generic Name Dose Route Start Last Admin Trade Name Freq PRN Reason Stop Dose Admin Piperacillin Sod/Tazobactam 100 mls @ 200 mls/hr 05/11/24 14:21 05/11/24 14:43 Sod 4.5 gm/ Sodium Chloride IV 05/11/24 14:50 200 mls/hr ONCE ONE Administration Sodium Chloride 1,578.51 mls @ 1,578.51 mls/hr 05/11/24 14:23 05/11/24 14:44 Ns 30 ml/kg infuse over 1 hr (1578.51 ml) 05/11/24 15:22 1,578.51 mls/hr IV Administration .Q1H STA Medical Decision Making Medical Decision Making [facility] Narrative: 89-year-old female with a history of dementia, hypertension, COPD does not wear oxygen at home, hypothyroidism who was brought to emergency department by her daughter for evaluation of elevated respiratory rate, productive sounding cough, sore throat, shortness of breath, weakness, cough, low O2 saturations of 82% at home and fever with a T-max of 100.1 degrees. Information comes from the patient's daughter is a telemetry nurse a [facility]. Vital signs in the emergency department revealed an elevated respiratory rate otherwise vital signs were unremarkable. Patient's lung exam did reveal right-sided rhonchi and rales with the left base sounding clear. She does have thoracic spinal tenderness and paraspinal tenderness from a possible fall. Exam was otherwise unremarkable. 14:21 Differential diagnosis: ?Includes but is not limited to pneumonia, bronchitis, streptococcal pharyngitis, electrolyte abnormalities, anemia Following evaluation was ordered: CBC, CMP, lactic acid, urinalysis, magnesium, BNP, troponin, urinalysis, rapid strep, COVID-19, influenza, RSV, chest x-ray-two view, 12 EKG Course: 14:21 My interpretation patient's laboratory evaluation is as follows: Elevated WBC 37983 with 15% bands. Elevated INR 1.2. Elevated glucose 136. High sensitive troponin I detectable but not elevated at 14.1. BNP was normal at 83. Urinalysis is pending collection however finalized urine culture from 05/09/2024 grew mixed oh only. COVID-19, influenza, RSV were negative. Rapid strep negative. On my interpretation of the chest x-ray compared to the previous chest x-ray on 05/09/2024 the patient has a right lower lobe infiltrate. Clinically, patient's presentation is consistent with pneumonia as well. Patient was treated with Zosyn 4.5 g IV for possible aspiration pneumonia. I also ordered normal saline bolus 30 cc/kilogram and oxygen 2 L via nasal cannula. I will discuss admission with the covering hospitalist, physician operations manager assistant Macrina Lua and the patient will be admitted for further manage. Admission/Observation Consideration of admission/observation: Escalation of care including admission/observation considered Lab Data MDM Lab Attestation statement: I reviewed the patient's lab results. 05/11/24 13:24 05/11/24 13:24 Labs: Lab Results 05/11/24 05/11/24 05/11/24 Range/Units 13:24 13:25 14:22 WBC 13.9 H (4.8-10.8) X10*3/uL RBC 4.30 (4.20-5.50) X10*6/uL Hgb 13.5 (12.0-16.0) g/dl Hct 39.5 (37.0-47.0) % MCV 91.9 (80.0-98.0) fL MCH 31.4 (27.0-33.0) pg MCHC 34.2 (31.0-35.0) g/dl RDW 14.1 (11.0-16.0) % Plt Count 210 (160-400) X10*3/uL MPV 8.6 L (9.4-12.3) fL Immature Gran % (Auto) Cancelled Neut % (Auto) Cancelled Lymph % (Auto) Cancelled [place] % (Auto) Cancelled Eos % (Auto) Cancelled Baso % (Auto) Cancelled Lymph # (Auto) Cancelled [place] # (Auto) Cancelled Eos # (Auto) Cancelled Baso # (Auto) Cancelled Abs Immat Gran (auto) Cancelled Absolute Neuts (auto) Cancelled Absolute Nucleated RBC 0.000 (0.0-0.012) X10*3/uL Nucleated RBC % (auto) 0.0 (0.0-0.2) /100WBC Neutrophils % (Manual) 67 (45-73) % Band Neutrophils % 15 H (3-5) % Lymphocytes % (Manual) 4 L (20-40) % Monocytes % (Manual) 13 H (2-11) % Eosinophils % (Manual) 1 (0-4) % Abs Neuts (Manual) 11.4 H (2.0-8.3) X10*3/uL Lymphocytes # (Manual) 0.6 L (1.2-4.9) X10*3/uL Monocytes # (Manual) 1.8 H (0.1-1.2) X10*3/uL Eosinophils # (Manual) 0.1 (0.0-0.4) X10*3/uL Toxic Vacuolation PRESENT Dohle Bodies PRESENT Platelet Estimate NORMAL (NORMAL) Plt Morphology Comment NORMAL RBC Morphology NOTED Polychromasia 1+ (0-2) /OIF Sodium 139 (135-145) mmol/L Potassium 3.8 (3.3-5.1) mmol/L Chloride 100 (96-108) mmol/L Carbon Dioxide 29 (22-29) mmol/L Anion Gap 14 (12-20) BUN 16 (9-16) mg/dL Creatinine 0.83 (0.5-1.4) mg/dL Estim Creat Clear Calc 33.6 Estimated GFR > 60 Random Glucose 136 H (60-115) mg/dL Calcium 10.2 D (8.4-10.2) mg/dL Magnesium 1.9 (1.6-2.6) mg/dL Total Bilirubin 0.4 (0.0-1.0) mg/dL Direct Bilirubin 0.2 (0.0-0.5) mg/dL AST 20 (5-31) U/L ALT 12 (0-31) U/L Alkaline Phosphatase 80 (39-117) U/L Troponin I High Sens 14.1 (<3.5-17.0) ng/L B-Natriuretic Peptide 83 (<100) pg/mL Total Protein 7.3 (6.5-8.0) g/dL Albumin 3.7 (3.5-5.0) g/dL Influenza Type A (PCR) NEGATIVE (Negative) Influenza Type B (PCR) NEGATIVE (Negative) RSV RNA Qual (PCR) NEGATIVE (Negative) SARS-CoV-2 RNA (RT-PCR) NEGATIVE (Negative) S. pyogenes GrpA RONY Negative (Negative) Independent Interpretation I performed an independent interpretation of an: EKG Interpretation: My interpretation patient's 12 EKG done at 12:53 hours is as follows: Normal sinus rhythm with sinus arrhythmia with a rate of 89, normal MD interval, QRS duration QTC interval, less than [address] segment depression 2, AVF, V4 through V6. No ST segment elevation, no significant T-wave abnormalities, no PACs, no PVCs. Compared to EKG dated 05/09/2024 at 14:49 hours, the ST segment depression in 3, V4 through V5 were present on the previous EKG. Radiology Impression Discussion of test interpretation with radiology: I have reviewed the radiologist's reading. Radiologist Impression: XR chest 2V IMPRESSION: Redemonstrated sequela of chronic lung disease without acute cardiopulmonary abnormality Dictated By: Min Short MD Independent Historian Clinical information obtained from an independent historian. History obtained from or confirmed by: Other (Daughter, Terri who was a telemetry nurse at [facility]) Chronic Conditions Patient?s care impacted by: Hypertension and Other (Dementia) Critical Care Time Critical Care Time Critical Care Time: Yes Total Critical Care Time: 35 Attestation: Critical Care: The patient was critically ill with a high probability of imminent or life threatening deterioration. I spent greater than 30 minutes of discontinuous time evaluating the patient,delivering critical care at the bedside, discussing and evaluating pertinent data with consultants. Critical care time does not include time spent performing separately billable procedures or teaching. Total time spent performing critical care was 35 minutes. Discharge Plan Discharge Patient Disposition: Admitted As Inpatient Print Language: Khmer
--- OUTSIDE RECORDS SUMMARY | 2024-05-11 13:02 | XMS_ITS | Patient Health Record ---
Author Organization [facility] Address [address] [place] [address] Care Team Providers [employer] Department Chair Name Role Phone Jayden CORTES, Bret Primary Care Provider Sharad Valero Jr Unavailable ALLERGIES No Known Allergies RESULTS Component Value Reference Range Notes Pathology Reviewed date:02/14/2024 09:33:31 AM Interpretation: Performing Lab:[facility], [address] [place] [phone] Notes/Report: Type and Screen Reviewed date:2024 04:29:18 PM Interpretation: Performing Lab:[facility], [address] [place] [phone] Notes/Report: Results at Issue Units as of [...] Cells Reviewed date:2024 04:29:23 PM Interpretation: Performing Lab:[facility], [address] [place] [phone] Notes/Report: Red Blood Cells [id number] ON RC Red Blood Cells TRANSFUSED 02/07/24 0809 Red Blood Cells [id number] OP RC Red Blood Cells TRANSFUSED 02/09/24 1130 Red Blood Cells [id number] OP RC Red Blood Cells TRANSFUSED 02/07/242041 Pathology Reviewed date:05/02/2024 11:18:41 AM Interpretation: Performing Lab:[facility], [address] [place] [phone] Notes/Report: REASON FOR REFERRAL No Information MEDICATIONS [...] Notes Problem Epigastric pain (R10.13) Active confirmed 65773464 Problem Acute gastric ulcer with hemorrhage (K25.0) Active confirmed 89219180 Problem Gastroesophageal reflux disease without esophagitis (K21.9) Active confirmed 030392735 Problem Esophageal spasm (K22.4) Active confirmed 24983839 Problem Common bile duct calculi (K80.50) Active confirmed 253864763 Problem Gastric ulcer (K25.9) Active confirmed Gastric ulcer (364903136) Problem Secondary hypertension (I15.9) Active confirmed 31020908 VITAL SIGNS Temperature 97.3 degrees Fahrenheit 02/19/2024 Blood pressure diastolic 00 mm Hg 02/19/2024 Height 60.25 in 02/19/2024 Blood pressure systolic 000 mm Hg 02/19/2024 Weight 116 lbs 02/19/2024 BMI 22.46 kg/m2 02/19/2024 Encounters Encounter Location Date Provider Diagnosis [facility] Out[facility] [address] [place] [id number] 04/17/2024 Sharad Rodriguez Jr Gastric ulcer K25.9 [facility] [address] [place] [id number] 02/19/2024 Sharad Rodriguez Jr Acute gastric ulcer with hemorrhage K25.0 [facility] [address] [place] [id number] 2024 Sharad Rodriguez Jr [facility] [address] [place] [id number] 02/14/2024 Sharad Rodriguez Jr [facility] [address] [place] [id number] 02/14/2024 Sharad Rodriguez Jr [facility] [address] [place] [id number] 03/08/2024 Sharad Rodriguez Jr [facility] [address] [place] [id number] 05/02/2024 Sharad Rodriguez Jr ASSESSMENTS Encounter Date [...] OF JESÚS BARBARA [address] [place] [id number] ZA KENNY ChristopherE Self - patient is the insured [facility] [address] [place] [address] [id number] NADIR GALEANO Self - patient is the [...]
[2024-05-11 13:30] LABS: Hematocrit 39.5 % (37.0-47.0); Hemoglobin 13.5 g/dl (12.0-16.0); Mean Corpuscular HGB Conc 34.2 g/dl (31.0-35.0); Mean Corpuscular Hemoglobin 31.4 pg (27.0-33.0); Mean Corpuscular Volume 91.9 fL (80.0-98.0); Mean Platelet Volume 8.6 fL (9.4-12.3); Platelet Count 210 X10*3/uL (160-400); Red Cell Distribution Width 14.1 % (11.0-16.0); White Blood Count 13.9 X10*3/uL (4.8-10.8)
[2024-05-11 13:51] LABS: Neutrophils Percent Manual 67 % (45-73)
[2024-05-11 14:03] LABS: Band Neutrophils Percent 15 % (3-5); Eosinophils Absolute Manual 0.1 X10*3/uL (0.0-0.4); Eosinophils Percent Manual 1 % (0-4); Lymphocytes Absolute Manual 0.6 X10*3/uL (1.2-4.9); Lymphocytes Percent Manual 4 % (20-40); Monocytes Absolute Manual 1.8 X10*3/uL (0.1-1.2); Monocytes Percent Manual 13 % (2-11); Neutrophils Absolute Manual 11.4 X10*3/uL (2.0-8.3)
[2024-05-11 14:05] LABS: Dohle Bodies PRESENT; Toxic Vacuolation PRESENT
[2024-05-11 14:06] LABS: Platelet Estimate NORMAL (NORMAL); Platelet Morphology Comment NORMAL; Polychromasia 1+ (0-2) /OIF; RBC Morphology NOTED
[2024-05-11 14:08] LABS: Alanine Aminotransferase 12 U/L (0-31); Albumin Level 3.7 g/dL (3.5-5.0); Alkaline Phosphatase 80 U/L (39-117); Anion Gap 14 (12-20); Aspartate Amino Transferase 20 U/L (5-31); Bilirubin Direct 0.2 mg/dL (0.0-0.5); Bilirubin Total 0.4 mg/dL (0.0-1.0); Blood Urea Nitrogen 16 mg/dL (9-16); Calcium 10.2 mg/dL (8.4-10.2); Carbon Dioxide 29 mmol/L (22-29); Chloride 100 mmol/L (96-108); Creatinine Clr Calc Pharmacy 33.6; Estimated Glomerular Filt Rate > 60; Glucose Random 136 mg/dL (60-115); Magnesium 1.9 mg/dL (1.6-2.6); Potassium 3.8 mmol/L (3.3-5.1); Sodium 139 mmol/L (135-145); Total Protein 7.3 g/dL (6.5-8.0)
[2024-05-11 14:11] LABS: B Type Natriuretic Peptide 83 pg/mL (<100); Influenza A PCR NEGATIVE (Negative); Influenza B PCR NEGATIVE (Negative); Resp Syncy Virus RNA Qual PCR NEGATIVE (Negative); SARS COV2 PCR INHOUSE NEGATIVE (Negative)
[2024-05-11 14:13] LABS: Troponin-I High Sensitivity 14.1 ng/L (<3.5-17.0)
[2024-05-11 14:37] LABS: IDNOW Serial# 6674DD1D; Strep A Nucleic Acid Negative (Negative)
[2024-05-11] MEDS: Piperacillin Sodium/Tazobactam 4.5 GM in 0.9 % Sodium Chloride 100 ML IV (14:43)
[2024-05-11] MEDS: Albuterol/Iprat 2.5/0.5MG 3 ML AMPUL.NEB INHALE ×3 (15:44→22:49)
--- NOTE | 2024-05-11 16:00 | P.HPHOSP_ITS ---
History of Present Illness Date of Service: 05/11/24 Chief Complaint: sob,cough 89 y/o F with Pmhx dementia, htn , COPD not on home oxygen , hypothyroidism came with her daughter for sob ,tachypnea, weakness, cough, low O2 saturations of 82% at home and fever low grade . The patient's daughter is a telemetry nurse a [employer] and was able to give me very detailed information about the patient's presentation. as per his daughter on 05/09/2024 the patient complained of a sore throat and generalised extremely weak, had a fall landing on her back but this was unwitnessed since the patient lives alone, further he had increased sob ,productive sounding cough,low grade fevers ,tachypnea ,did know low O2 saturations in the 82-84% on room air. The daughter was concerned that the patient may have had an aspiration pneumonia secondary to the fall and brought the patient to the emergency department for evaluation. Denies any new complaint of chest pain or abdominal pain or fever or chills or nausea or vomiting or weakness or numbness. labs imaging ,ekg reviewed: wbc 13.9k tropsx1 : 14 ekg nsr cxr -grossly fine Review of Systems 2 Review of Systems: as above. Yes all other systems are reviewed and are negative [facility] Medical History Pyloric channel ulcer Nephrolithiasis Common bile duct stone COPD (chronic obstructive pulmonary disease) Osteoporosis Hypertension Hypothyroidism Dementia V-tach Surgical History Hx of cystoscopy Hx of tonsillectomy Hx of appendectomy Hx of tubal ligation History of esophagogastroduodenoscopy (EGD) History of ERCP Social History Household Members: None Housing: House Do you presently have visiting nurse or other home services: No Patient Tobacco Use Status: Former Tobacco user Second Hand Smoke Exposure: No Advance Directives: Yes Advance Directives on File: Yes Advance Directives Date on File: 02/07/24 service: No Meds Allergies Allergy/AdvReac Type Severity Reaction Status Date / Time environmental allergies Allergy Intermediate Cough Verified 05/11/24 12:43 Active Medications: Current Medications Albuterol/Ipratropium (Albuterol/Iprat 2.5/0.5mg 3 Ml Ampul.Neb) 3 ml INHALE Q4H [facility] Last Admin: 05/11/24 15:44 Dose: 3 ml Guaifenesin/Codeine Phosphate (Guaifen/Codeine Sf 200/20/10ml 10 Ml Liquid) 10 ml PO Q4H [facility] Piperacillin Sod/Tazobactam (Sod 3.375 gm/ Sodium Chloride) 50 mls @ 100 mls/hr IV Q6H [facility] Loratadine (Loratadine 10 Mg Tablet) 10 mg PO DAILY [facility] Omeprazole (Omeprazole 40 Mg Capsule.Dr) 40 mg PO BID@0630,1630 [facility] Sodium Chloride (0.9 % Sodium Chloride Flush 3 Ml Syringe) 3 ml IVFLUSH QSHIFT [facility] Home Medications ?Medication ?Instructions ?Recorded ?Confirmed ?Last Taken ?Type levothyroxine 75 mcg tablet 75 mcg PO DAILY@0600 02/07/24 04/15/24 02/06/24 History memantine 10 mg tablet 10 mg PO BID 02/07/24 04/15/24 02/06/24 History metoprolol succinate 25 mg 12.5 mg PO DAILY 02/07/24 04/15/24 02/06/24 History tablet,extended release 24 hr tiotropium bromide 1.25 1 puff inhalation DAILY 02/07/24 04/15/24 02/06/24 History mcg/actuation mist for inhalation (Spiriva Respimat) venlafaxine 75 mg capsule,extended 75 mg PO DAILY 02/07/24 04/15/24 02/06/24 History release 24 hr amlodipine 5 mg tablet 5 mg PO DAILY 05/11/24 Unknown History quetiapine 25 mg tablet 25 mg PO DAILY PRN Anxiety 05/11/24 Unknown History Physical Exam 2 Vital Signs and Narrative: Vital Signs: Last Vital Signs Temp 98.7 F 05/11/24 12:37 Pulse 86 05/11/24 15:44 Resp 16 05/11/24 15:44 BP 105/51 L 05/11/24 12:37 Pulse Ox 94 05/11/24 12:37 O2 Del Method Room Air 05/11/24 12:37 BMI result Body Mass Index 22.7 general:Elderly female lying in bed in no distress Neck supple, no JVD chest:Regular rate and rhythm, S1-S2 heard pulm:Regular air entry diminshed ,has b/l wheezing abd:Abdomen soft nontender, no guarding, no rigidity neuro: aox3 ,non focal ext: no cyanosis or edema Results Labs 05/11/24 13:24 05/11/24 13:24 Labs: Laboratory Results - last 24 hr 05/11/24 05/11/24 05/11/24 13:24 13:25 14:22 MCV 91.9 MCH 31.4 MCHC 34.2 RDW 14.1 Plt Count 210 MPV 8.6 L Immature Gran % (Auto) Cancelled Neut % (Auto) Cancelled Lymph % (Auto) Cancelled [place] % (Auto) Cancelled Eos % (Auto) Cancelled Baso % (Auto) Cancelled Lymph # (Auto) Cancelled [place] # (Auto) Cancelled Eos # (Auto) Cancelled Baso # (Auto) Cancelled Abs Immat Gran (auto) Cancelled Absolute Neuts (auto) Cancelled Absolute Nucleated RBC 0.000 Nucleated RBC % (auto) 0.0 Neutrophils % (Manual) 67 Band Neutrophils % 15 H Lymphocytes % (Manual) 4 L Monocytes % (Manual) 13 H Eosinophils % (Manual) 1 Abs Neuts (Manual) 11.4 H Lymphocytes # (Manual) 0.6 L Monocytes # (Manual) 1.8 H Eosinophils # (Manual) 0.1 Toxic Vacuolation PRESENT Dohle Bodies PRESENT Platelet Estimate NORMAL Plt Morphology Comment NORMAL RBC Morphology NOTED Polychromasia 1+ (0-2) Anion Gap 14 Estim Creat Clear Calc 33.6 Estimated GFR > 60 Random Glucose 136 H Lactic Acid Calcium 10.2 D Magnesium 1.9 Total Bilirubin 0.4 Direct Bilirubin 0.2 AST 20 ALT 12 Alkaline Phosphatase 80 Troponin I High Sens 14.1 B-Natriuretic Peptide 83 Total Protein 7.3 Albumin 3.7 Influenza Type A (PCR) NEGATIVE Influenza Type B (PCR) NEGATIVE RSV RNA Qual (PCR) NEGATIVE SARS-CoV-2 RNA (RT-PCR) NEGATIVE S. pyogenes GrpA RONY Negative 05/11/24 14:40 MCV MCH MCHC RDW Plt Count MPV Immature Gran % (Auto) Neut % (Auto) Lymph % (Auto) [place] % (Auto) Eos % (Auto) Baso % (Auto) Lymph # (Auto) [place] # (Auto) Eos # (Auto) Baso # (Auto) Abs Immat Gran (auto) Absolute Neuts (auto) Absolute Nucleated RBC Nucleated RBC % (auto) Neutrophils % (Manual) Band Neutrophils % Lymphocytes % (Manual) Monocytes % (Manual) Eosinophils % (Manual) Abs Neuts (Manual) Lymphocytes # (Manual) Monocytes # (Manual) Eosinophils # (Manual) Toxic Vacuolation Dohle Bodies Platelet Estimate Plt Morphology Comment RBC Morphology Polychromasia Anion Gap Estim Creat Clear Calc Estimated GFR Random Glucose Lactic Acid 1.0 Calcium Magnesium Total Bilirubin Direct Bilirubin AST ALT Alkaline Phosphatase Troponin I High Sens B-Natriuretic Peptide Total Protein Albumin Influenza Type A (PCR) Influenza Type B (PCR) RSV RNA Qual (PCR) SARS-CoV-2 RNA (RT-PCR) S. pyogenes GrpA RONY ECG Attestation: I personally reviewed and interpreted this ECG as follows: (nsr) Imaging Radiologist's Impressions: Impressions Chest X-Ray 05/11/24 12:45 IMPRESSION: Redemonstrated sequela of chronic lung disease without acute cardiopulmonary abnormality Assessment and Plan (1) Pneumonia: Qualifiers: Laterality: right Lung location: lower lobe of lung Pneumonia type: d ue to unspecified organism Qualified Code(s): J18.9 - Pneumonia, unspecified organism Status: Acute (2) Chronic pulmonary disease: Status: Acute Plan 89 y/o F with Pmhx dementia, htn , COPD not on home oxygen , hypothyroidism came with her daughter for sob ,tachypnea, weakness, cough, low O2 saturations. acute hypoxemic respirtaory failure sec to copd execerbation/clinical acute brochitis vs pneumonia had tachypnea,tachycardia,leucocytosis similar to 2 days back tachycardia due to nebs ,tachycardia due to copd - not due to sepsis. lactic acid normal,blood cultures sent RPP added. Cta ordered by ED-pending plan: started on nebs ,steriods ,antibiotics zosyn (05/20),taper oxygen ,loratidine ,hycodan. medical reconcillation pending dementia : supportive care Hypothyriodism : continue levothyroxine. htn -home med reconcillation pending Pt will require a hospitalization of at least two nights for treatment for AHRF sec to copd excerebation-needs iv antibiotics ,oxygen ,steriods ,nebs, close monitering of respiratory status . above d/w her daughter in detail, time spent 70 min ,patient dnr/dni. Quality Stroke Does the patient have a stroke diagnosis?: No VTE Prior VTE?: No VTE Risk Level:: Medical - moderate - high VTE Device Contraindication: N/A - Device Ordered VTE Drug Contraindication: N/A - Med Ordered
[2024-05-11] MEDS: iohexoL 350 MG/ML 100 ML INFUS..BTL IV (16:34)
[2024-05-11] MEDS: guaiFEN/Codeine SF 200/20/10ML 10 ML LIQUID PO (16:48)
[2024-05-11] MEDS: Omeprazole 40 MG CAPSULE.DR PO (16:48)
[2024-05-11] MEDS: Loratadine 10 MG TABLET PO (16:48)
--- NOTE | 2024-05-11 17:30 | PHA.MEDREC ---
Pharmacy Consult ? Medication Reconciliation Pharmacy has completed the medication reconciliation. Spoke to daughter Terri ([phone]) to confirm meds.
[2024-05-11] MEDS: methylPREDNISolone Sod Succ 40 MG/ML VIAL IVPUSH (18:10)
[2024-05-11] MEDS: Enoxaparin Sodium 40 MG/0.4 ML SYRINGE SUBCUT (21:32)
[2024-05-11] MEDS: Piperacillin Sodium/Tazobactam 3.375 GM in 0.9 % Sodium Chloride 50 ML IV (22:07)
[2024-05-11] MEDS: 0.9 % Sodium Chloride Flush 3 ML SYRINGE IVFLUSH (22:08)
[2024-05-12] VITALS (13 sets, daily range): BP systolic 124–172; BP diastolic 60–84; PULSE 67–94; RESP 14–20; TEMP 36.3–37.2; O2SAT 92–99
[2024-05-12] MEDS: Piperacillin Sodium/Tazobactam 3.375 GM in 0.9 % Sodium Chloride 50 ML IV ×4 (03:29→21:01)
[2024-05-12] MEDS: methylPREDNISolone Sod Succ 40 MG/ML VIAL IVPUSH ×2 (05:35→17:56)
[2024-05-12] MEDS: Omeprazole 40 MG CAPSULE.DR PO ×2 (05:35→17:56)
[2024-05-12] MEDS: Albuterol/Iprat 2.5/0.5MG 3 ML AMPUL.NEB INHALE ×5 (08:03→23:37)
[2024-05-12 08:56] LABS: Procalcitonin 0.29 ng/mL
[2024-05-12] MEDS: Metoprolol Succinate ER 12.5 MG HALFTAB.ER.24H PO (09:01)
[2024-05-12] MEDS: Ascorbic Acid 500 MG TABLET 1000 MG PO (09:01)
[2024-05-12] MEDS: Loratadine 10 MG TABLET PO (09:01)
[2024-05-12] MEDS: 0.9 % Sodium Chloride Flush 3 ML SYRINGE IVFLUSH ×3 (09:01→20:57)
[2024-05-12] MEDS: Memantine HCl 10 MG TABLET PO ×2 (09:02→20:56)
[2024-05-12] MEDS: Levothyroxine Sodium 75 MCG TABLET PO (09:02)
[2024-05-12] MEDS: amLODIPine Besylate 5 MG TABLET PO (09:02)
[2024-05-12] MEDS: Venlafaxine HCl ER 75 MG CAP.ER.24H PO (09:04)
[2024-05-12] MEDS: Ferrous Sulfate 324 MG TABLET.DR PO (09:06)
[2024-05-12 10:33] LABS: Adenovirus PCR Not Detected (Not Detect.); Bordetella parapertussis PCR Not Detected (Not Detect.); Bordetella pertussis PCR Not Detected (Not Detect.); Chlamydia pneumoniae PCR Not Detected (Not Detect.); Coronavirus 229E PCR Not Detected (Not Detect.); Coronavirus HKU1 PCR Not Detected (Not Detect.); Coronavirus NL63 PCR Not Detected (Not Detect.); Coronavirus OC43 PCR Not Detected (Not Detect.); Human metapneumovirus PCR Not Detected (Not Detect.); Influenza A PCR Not Detected (Not Detect.); Influenza B PCR Not Detected (Not Detect.); Mycoplasma pneumoniae PCR Not Detected (Not Detect.); Parainfluenza 1 PCR Not Detected (Not Detect.); Parainfluenza 2 PCR Not Detected (Not Detect.); Parainfluenza 3 PCR Not Detected (Not Detect.); Parainfluenza 4 PCR Not Detected (Not Detect.); RSV PCR Not Detected (Not Detect.); Rhino/Enterovirus PCR Not Detected (Not Detect.)
[2024-05-12 10:45] LABS: SARS-CoV-2 PCR Not Detected (Not Detect.)
[2024-05-12] MEDS: Acetaminophen 325 MG TABLET 650 MG PO ×2 (11:11→20:56)
--- NOTE | 2024-05-12 12:31 | MHC.CM.PN ---
PT REPORTS SHE LIVES ALONE AND IS INDEPENDENT WITH CARE SHE HAS NO DME AND NO SERVICES HCP ON FILE PCP: FARHAT QUINTEROS IMM DELIVERED DCP: HOME NO SERVICES PT DOES NOT WANT VNA, HER DAUGHTER IS A NURSE FAMILY TO TRANSPORT
--- NOTE | 2024-05-12 14:04 | HO.PM.IMPN ---
Subjective Subjective Date of Service: 05/12/24 Interval History: copd ,possible pneumonia Review of Systems sob seems somewhat improving has cough Physical Exam Vital Signs: Vital Signs: Last Vital Signs Temp 97.4 F 05/12/24 11:16 Pulse 72 05/12/24 11:17 Resp 18 05/12/24 11:17 BP 124/60 05/12/24 11:16 Pulse Ox 97 05/12/24 11:16 O2 Del Method Nasal Cannula 05/12/24 11:16 O2 Flow Rate 2 05/12/24 11:16 BMI result Body Mass Index 22.7 general:Elderly female lying in bed in no distress chest:Regular rate and rhythm, S1-S2 heard pulm:Regular air entry diminshed ,has b/l wheezing abd:Abdomen soft nontender, no guarding, no rigidity neuro: aox3 ,non focal ext: no cyanosis or edema Objective Data Active Medications Acetaminophen (Acetaminophen 325 Mg Tablet) 650 mg PO Q6H PRN PRN Reason: Pain, Moderate(Pain Scale 4-6) Last Admin: 05/12/24 11:11 Dose: 650 mg Documented By: MILE Albuterol/Ipratropium (Albuterol/Iprat 2.5/0.5mg 3 Ml Ampul.Neb) 3 ml INHALE Q4H [facility] Last Admin: 05/12/24 11:15 Dose: 3 ml Documented By: ZBIGNIEW Albuterol/Ipratropium (Albuterol/Iprat 2.5/0.5mg 3 Ml Ampul.Neb) 3 ml INHALE Q3H PRN PRN Reason: Shortness of Breath/Wheezing Amlodipine Besylate (Amlodipine Besylate 5 Mg Tablet) 5 mg PO DAILY [facility]; Protocol Last Admin: 05/12/24 09:02 Dose: 5 mg Documented By: MARGARET Ascorbic Acid (Ascorbic Acid 500 Mg Tablet) 1,000 mg PO DAILY [facility] Last Admin: 05/12/24 09:01 Dose: 1,000 mg Documented By: MARGARET Enoxaparin Sodium (Enoxaparin Sodium 40 Mg/0.4 Ml Syringe) 40 mg SUBCUT Q24H [facility] Last Admin: 05/11/24 21:32 Dose: 40 mg Documented By: WON Ferrous Sulfate (Ferrous Sulfate 324 Mg Tablet.) 324 mg PO Q2D [facility] Last Admin: 05/12/24 09:06 Dose: 324 mg Documented By: MARGARET Guaifenesin/Codeine Phosphate (Guaifen/Codeine Sf 200/20/10ml 10 Ml Liquid) 10 ml PO Q4H PRN PRN Reason: Cough Piperacillin Sod/Tazobactam (Sod 3.375 gm/ Sodium Chloride) 50 mls @ 100 mls/hr IV Q6H [facility] Last Infusion: 05/12/24 09:32 Dose: Infused Documented By: MILE Levothyroxine Sodium (Levothyroxine Sodium 75 Mcg Tablet) 75 mcg PO DAILY@0600 [facility] Last Admin: 05/12/24 09:02 Dose: 75 mcg Documented By: MARGARET Loratadine (Loratadine 10 Mg Tablet) 10 mg PO DAILY [facility] Last Admin: 05/12/24 09:01 Dose: 10 mg Documented By: MARGARET Memantine (Memantine Hcl 10 Mg Tablet) 10 mg PO BID [facility] Last Admin: 05/12/24 09:02 Dose: 10 mg Documented By: MARGARET Methylprednisolone Sodium Succinate (Methylprednisolone Sod Succ 40 Mg/Ml Vial) 40 mg IVPUSH Q12H [facility] Last Admin: 05/12/24 05:35 Dose: 40 mg Documented By: WON Metoprolol Succinate (Metoprolol Succinate Er 12.5 Mg Halftab.Er.24h) 12.5 mg PO DAILY [facility]; Protocol Last Admin: 05/12/24 09:01 Dose: 12.5 mg Documented By: MARGARET Omeprazole (Omeprazole 40 Mg Capsule.) 40 mg PO BID@0630,1630 [facility] Last Admin: 05/12/24 05:35 Dose: 40 mg Documented By: WON Sodium Chloride (0.9 % Sodium Chloride Flush 3 Ml Syringe) 3 ml IVFLUSH QSHIFT [facility] Last Admin: 05/12/24 09:01 Dose: 3 ml Documented By: MARGARET Venlafaxine HCl (Venlafaxine Hcl Er 75 Mg Cap.Er.24h) 75 mg PO DAILY [facility] Last Admin: 05/12/24 09:04 Dose: 75 mg Documented By: MARGARET Labs 05/11/24 13:24 06/15/24 13:24 Labs: Laboratory Results - last 24 hr 05/11/24 05/11/24 05/11/24 13:24 13:25 14:22 Neutrophils % (Manual) 67 Band Neutrophils % 15 H Lymphocytes % (Manual) 4 L Monocytes % (Manual) 13 H Eosinophils % (Manual) 1 Abs Neuts (Manual) 11.4 H Lymphocytes # (Manual) 0.6 L Monocytes # (Manual) 1.8 H Eosinophils # (Manual) 0.1 Toxic Vacuolation PRESENT Dohle Bodies PRESENT Platelet Estimate NORMAL Plt Morphology Comment NORMAL RBC Morphology NOTED Polychromasia 1+ (0-2) Anion Gap 14 Estim Creat Clear Calc 33.6 Estimated GFR > 60 Random Glucose 136 H Lactic Acid Calcium 10.2 D Magnesium 1.9 Total Bilirubin 0.4 Direct Bilirubin 0.2 AST 20 ALT 12 Alkaline Phosphatase 80 Troponin I High Sens 14.1 B-Natriuretic Peptide 83 Total Protein 7.3 Albumin 3.7 Procalcitonin 0.29 Respiratory Panel [place] Adenovirus (Rapid PCR) B.pert (TEM-PCR) B.parapertussis DNA PCR C. pneumoniae DNA (PCR) Coronavirus OC43 (PCR) Coronavirus HKU1 (PCR) Coronavirus 229E (PCR) Coronavirus NL63 (PCR) Human Metapneumovir PCR Influenza A (RT-PCR) Influenza Type A (PCR) NEGATIVE Influenza B (RT-PCR) Influenza Type B (PCR) NEGATIVE M. pneumoniae (PCR) Parainfluenza 1 (PCR) Parainfluenza 2 (PCR) Parainfluenza 3 (PCR) Parainfluenza 4 (PCR) RSV (PCR) RSV RNA Qual (PCR) NEGATIVE Entero/Rhino (PCR) SARS-CoV-2 RNA (RT-PCR) NEGATIVE S. pyogenes GrpA RONY Negative 05/11/24 05/12/24 14:40 09:15 Neutrophils % (Manual) Band Neutrophils % Lymphocytes % (Manual) Monocytes % (Manual) Eosinophils % (Manual) Abs Neuts (Manual) Lymphocytes # (Manual) Monocytes # (Manual) Eosinophils # (Manual) Toxic Vacuolation Dohle Bodies Platelet Estimate Plt Morphology Comment RBC Morphology Polychromasia Anion Gap Estim Creat Clear Calc Estimated GFR Random Glucose Lactic Acid 1.0 Calcium Magnesium Total Bilirubin Direct Bilirubin AST ALT Alkaline Phosphatase Troponin I High Sens B-Natriuretic Peptide Total Protein Albumin Procalcitonin Respiratory Panel [place] See Note Adenovirus (Rapid PCR) Not Detected B.pert (TEM-PCR) Not Detected B.parapertussis DNA PCR Not Detected C. pneumoniae DNA (PCR) Not Detected Coronavirus OC43 (PCR) Not Detected Coronavirus HKU1 (PCR) Not Detected Coronavirus 229E (PCR) Not Detected Coronavirus NL63 (PCR) Not Detected Human Metapneumovir PCR Not Detected Influenza A (RT-PCR) Not Detected Influenza Type A (PCR) Influenza B (RT-PCR) Not Detected Influenza Type B (PCR) M. pneumoniae (PCR) Not Detected Parainfluenza 1 (PCR) Not Detected Parainfluenza 2 (PCR) Not Detected Parainfluenza 3 (PCR) Not Detected Parainfluenza 4 (PCR) Not Detected RSV (PCR) Not Detected RSV RNA Qual (PCR) Entero/Rhino (PCR) Not Detected SARS-CoV-2 RNA (RT-PCR) Not Detected S. pyogenes GrpA RONY Assessment and Plan (1) Pneumonia: Status: Acute Plan 89 y/o F with Pmhx dementia, htn , COPD not on home oxygen , hypothyroidism came with her daughter for sob ,tachypnea, weakness, cough, low O2 saturations. acute hypoxemic respirtaory failure sec to copd execerbation/clinical acute brochitis vs pneumonia : Tachycardia and tachypnea resolved,lactic acid normal,blood cultures pending RPP negative Cta showed-no Pulm embolism ,emphysema /New, patchy areas of tree-in-bud opacities within the posterior aspect of the right upper lobe and extending to the right lung apex, which could represent a minimal infectious or inflammatory process. plan: started on nebs ,steriods ,antibiotics zosyn (05/20),taper oxygen ,loratidine ,hycodan,taper oxygen. dementia : supportive care Hypothyriodism : continue levothyroxine. htn -continue home metorpolol ongoing hospitalization need for treatment for AHRF sec to copd excerebation-needs iv antibiotics ,oxygen ,steriods ,nebs, close monitering of respiratory status . Quality Stroke Does the patient have a stroke diagnosis?: No VTE Prior VTE?: No VTE Risk Level:: Medical - moderate - high VTE Device Contraindication: N/A - Device Ordered VTE Drug Contraindication: N/A - Med Ordered
[2024-05-12 16:24] LABS: Appearance Urine Clear; Color Urine Yellow; Glucose Urine UA >=1000 mg/dL (Negative); Leukocyte Esterase Urine Negative (Negative); Nitrite Urine Negative (Negative); Specific Gravity - Urine >= 1.030 (1.005-1.025); UMIC TRIGGER UACC YES; Urine Blood Large (3+) (Negative); Urine Ketones Negative (Negative); Urine Protein 30 (1+) mg/dL (Neg-Trace)
[2024-05-12 16:29] LABS: Bacteria Urine None Seen (None Seen); Hyaline Casts Urine 0-2 /LPF (0-2); RBC Urine >20 /HPF (0-2); Squamous Epithelial Cell Urine 0-2 /HPF (0-2); WBC Urine 0-5 /HPF (0-5)
[2024-05-12] MEDS: Enoxaparin Sodium 40 MG/0.4 ML SYRINGE SUBCUT (17:57)
[2024-05-12] MEDS: guaiFEN/Codeine SF 200/20/10ML 10 ML LIQUID PO (20:57)
[2024-05-13] VITALS (9 sets, daily range): BP systolic 131–172; BP diastolic 58–73; PULSE 76–87; RESP 18–20; TEMP 36.3–36.6; O2SAT 91–98
[2024-05-13] MEDS: Piperacillin Sodium/Tazobactam 3.375 GM in 0.9 % Sodium Chloride 50 ML IV ×2 (02:44→08:09)
[2024-05-13] MEDS: guaiFEN/Codeine SF 200/20/10ML 10 ML LIQUID PO (02:45)
[2024-05-13] MEDS: Melatonin 3 MG TABLET 6 MG PO (02:49)
[2024-05-13] MEDS: Albuterol/Iprat 2.5/0.5MG 3 ML AMPUL.NEB INHALE ×3 (03:24→11:14)
[2024-05-13] MEDS: Levothyroxine Sodium 75 MCG TABLET PO (05:37)
[2024-05-13] MEDS: Omeprazole 40 MG CAPSULE.DR PO (05:37)
[2024-05-13] MEDS: methylPREDNISolone Sod Succ 40 MG/ML VIAL IVPUSH (05:38)
[2024-05-13] MEDS: 0.9 % Sodium Chloride Flush 3 ML SYRINGE IVFLUSH (07:39)
[2024-05-13] MEDS: Ascorbic Acid 500 MG TABLET 1000 MG PO (08:08)
[2024-05-13] MEDS: Loratadine 10 MG TABLET PO (08:08)
[2024-05-13] MEDS: Metoprolol Succinate ER 12.5 MG HALFTAB.ER.24H PO (08:08)
[2024-05-13] MEDS: Memantine HCl 10 MG TABLET PO (08:08)
[2024-05-13] MEDS: amLODIPine Besylate 5 MG TABLET PO (08:08)
[2024-05-13] MEDS: Venlafaxine HCl ER 75 MG CAP.ER.24H PO (08:08)
[2024-05-13] MEDS: predniSONE 20 MG TABLET 40 MG PO (09:29)
--- NOTE | 2024-05-13 11:03 | MHC.SL.SWA ---
Speech Pathologist Impression:WFL Risk of Aspiration Due to: History of Pneumonia Reduced Cognition Dysphasia Diet Status: No change Liquid Consistency and Strategies for Safe Swallow: Liquid Intake Recommendation: Thin Liquid Intake Strategies: Small Sips Solid Food Consistency: Dietary Recommendations: Regular Additional Modifications to Solid Foods: Unremarkable exam. Recommend continue on REGULAR solids and THIN liquids, pills WHOLE with LIQUID. Patient is able to feed herself without difficulty. Given dx of PNA, recommend standard aspiration precautions: take small bites/sips, upright position during PO intake, eat/drink with a slow pace, alternate bites/sips. Oral Medication Intake: Whole with Liquid Please contact the pharmacy regarding appropriate crushable or liquid drug formulations that are available whenever modified delivery is recommended. Compensatory Strategies and Precautions to be Taken for Safe Swallow: Sitting Upright (90 deg) Small Bites and Sips Alternate Liquids/Solids Rate of Ingestion Change Supervision While Eating and Drinking for Safe Swallow: None Needed Recommendation for Speech: NA:Typical Evaluation Comment: Please re-refer with any changes or further concern. Frequency/Duration: Date Range for Service Req: Timeline to reassess: Stencil Cutter Clinican/Clinical Fellow: No Supervisory Statement: I have reviewed and agree with the student/clinical fellow's documentation: N/A Speech Language Pathologist: Koki Espinoza M.A., CCC-AUTH SPECIALIST
--- NOTE | 2024-05-13 12:14 | P.DS_ITS ---
DS: Providers Provider Date of Service: 05/13/24 Date of admission: 05/11/24 15:38 Date of discharge: 05/13/24 Primary care physician: Bret Carpenter MD Attending physician on discharge: Missy Ortiz Discharging clinician: Missy Ortiz DS: Diagnosis Discharge Diagnosis (1) Pneumonia: Status: Acute DS: Summary Hospital Course Hospital Course: 89 y/o F with Pmhx dementia, htn , COPD not on home oxygen , hypothyroidism came with her daughter for sob ,tachypnea, weakness, cough, low O2 saturations of 82% at home and fever low grade . The patient's daughter is a telemetry nurse a [employer] and was able to give me very detailed information about the patient's presentation. as per his daughter on 05/09/2024 the patient complained of a sore throat and generalised extremely weak, had a fall landing on her back but this was unwitnessed since the patient lives alone, further he had increased sob ,productive sounding cough,low grade fevers ,tachypnea ,did know low O2 saturations in the 82-84% on room air. The daughter was concerned that the patient may have had an aspiration pneumonia secondary to the fall and brought the patient to the emergency department for evaluation. Denies any new complaint of chest pain or abdominal pain or fever or chills or nausea or vomiting or weakness or numbness. labs imaging ,ekg reviewed: wbc 13.9k tropsx1 : 14 ekg nsr cxr -grossly fine Hospital course: acute hypoxemic respirtaory failure sec to copd execerbation/pneumonia : Mild leukocytosis, no fever, blood cultures sent,CTA chest showed possible bronchitis versus pneumonia: started on nebs, steroids, antibiotics, oxygen, cough syrup and loratadine: Patient seems to be improved with above supportive care, blood culture negative at 24 hour, hypoxia resolved, off oxygen. Patient will be going home with prednisone 40 mg daily for 3 days, Augmentin 875 mg p.o. b.i.d. for 7 days, consider chest imaging in 3-4 weeks to see resolution of CTA findings. Patient is to follow-up out patiently with PCP. Time Attestation Total time managing care of this patient today: 40 mintues. Discharge Coordination Time (in mins): 40 min Quality: Safe Use of Opioids Does Pt have an Active Cancer Diagnosis on the Problem List?: No Quality: Stroke Does the patient have a stroke diagnosis?: No Physical Exam Vital Signs: Vital Signs: Last Vital Signs Temp 97.8 F 05/13/24 11:39 Pulse 86 05/13/24 11:39 Resp 20 05/13/24 11:39 BP 145/60 H 05/13/24 11:39 Pulse Ox 96 05/13/24 11:39 O2 Del Method Room Air 05/13/24 11:39 O2 Flow Rate 2 05/13/24 07:36 BMI result Body Mass Index 22.7 Appearance: Alert.? Oriented X3.? cvs: rrr, [id number] , no murmur res: air entry fair , no rales or wheezing abd: no rebound or guarding ,nt, bs present. ext pulses present , no cyanosis neuro: axo3 , nonfocal. DS: Data Data Completed and Pending Completed studies during hospitalization [Text1]: Procedures Control Bleeding in Gastrointestinal Tract, Via Natural or Artificial Opening Endoscopic (02/07/24) Excision of Stomach, Pylorus, Via Natural or Artificial Opening Endoscopic, Diagnostic (02/07/24) Introduction of Other Therapeutic Substance into Upper GI, Via Natural or Artificial Opening Endoscopic (02/07/24) Transfusion of Nonautologous Red Blood Cells into Peripheral Vein, Percutaneous Approach (02/07/24) Labs on day of discharge: Laboratory Results - last 24 hr 05/12/24 16:00 Urine Color Yellow Urine Appearance Clear Urine pH 6.0 Ur Specific [place] >= 1.030 H Urine Protein 30 (1+) H Urine Glucose (UA) >=1000 H Urine Ketones Negative Urine Blood Large (3+) H Urine Nitrite Negative Ur Leukocyte Esterase Negative Urine RBC >20 H Urine WBC 0-5 Ur Squamous Epith Cells 0-2 Urine Bacteria None Seen Hyaline Casts 0-2 Preliminary micro results at discharge 05/11/24 14:44 Blood Culture - Preliminary Blood - Venous No growth after 24 hours. 05/11/24 14:39 Blood Culture - Preliminary Blood - Venous No growth after 24 hours. Imaging Chest x-ray: Radiologist's impression: ITS Impressions Chest X-Ray 05/11/24 12:45 IMPRESSION: Redemonstrated sequela of chronic lung disease without acute cardiopulmonary abnormality Chest CTA 05/11/24 16:33 IMPRESSION: 1. No CT angiographic evidence of acute pulmonary embolism. 2. Emphysematous changes with chronic interstitial prominence, similar when compared to the prior examination. New, patchy areas of tree-in-bud opacities within the posterior aspect of the right upper lobe and extending to the right lung apex, which could represent a minimal infectious or inflammatory process. 3. No new pulmonary nodule, mass, or airspace consolidation. VTE: Negative. Discharge Plan Discharge Anticipated Discharge Date/Time: 05/13/24 12:03 Patient Disposition: Home, Self-Care Discharge Diagnosis: copd ,possible pneumonia Referrals: Bret Carpenter MD [Primary Care Provider] - 1 Week Discharge Medications: New loratadine 10 mg Tablet 10 mg PO DAILY Qty: 30 0RF amoxicillin-pot clavulanate 875-125 mg Tablet 1 tab PO Q12H Qty: 14 0RF prednisone 20 mg Tablet 40 mg PO DAILY Qty: 6 0RF Robitussin Cough and Cold CF 2.5-5-50 mg/5 mL liquid 30 ml PO Q6-8H PRN (Reason: cough) Qty: 118 0RF Continued venlafaxine 75 mg capsule,extended release 24hr 75 mg PO DAILY Rx Instructions: WITH FOOD levothyroxine 75 mcg tablet 75 mcg PO DAILY@0600 metoprolol succinate 25 mg tablet extended release 24 hr 12.5 mg PO DAILY memantine 10 mg tablet 10 mg PO BID Spiriva Respimat 1.25 mcg/actuation mist 1 puff INHALATION DAILY PRN (Reason: Shortness Of Breath Or Wheezing) amlodipine 5 mg tablet 5 mg PO DAILY ascorbic acid (vitamin C) [Vitamin C] 1,000 mg Tablet 1,000 mg PO DAILY ferrous sulfate 324 mg (65 mg iron) Tablet,Delayed Release (Dr/Ec) 324 mg PO Q OTHER DAY omeprazole 40 mg capsule,delayed release(DR/EC) 40 mg PO DAILY@0630 Discharge Orders: Discharge Order (Routine); Ordered 05/13/24 Ordered By: Missy Ortiz Diet: Advance to usual diet Activity on Discharge: As tolerated Stand Alone Forms: Patient Portal Discharge page Print Language: Polish Care Plan Goals: acute hypoxemic respirtaory failure sec to copd execerbation/pneumonia : Mild leukocytosis, no fever, blood cultures sent,CTA chest showed possible bronchitis versus pneumonia: started on nebs, steroids, antibiotics, oxygen, cough syrup and loratadine: Patient seems to be improved with above supportive care, blood culture negative at 24 hour, hypoxia resolved, off oxygen. Patient will be going home with prednisone 40 mg daily for 3 days, Augmentin 875 mg p.o. b.i.d. for 7 days, consider chest imaging in 3-4 weeks to see resolution of CTA findings. Patient is to follow-up out patiently with PCP. Health Concerns: As above. Plan of Treatment: As above. Assessment: As above. Patient Instructions: Pneumonia (DC)
[2024-05-13] MEDS: Amoxicillin/Potassium Clav 875 MG TABLET PO (12:22)
--- NOTE | 2024-05-13 13:10 | MHC.CM.PN ---
Pt is medically cleared for discharge home self-care, pts family will transport her home.
== END 2024-05-13 14:30 | disposition home or self-care (01) | DRG 193 ==
LOC: HO.ED 14:46 → HO.EDOVER 15:39 → HO.IMC 16:53
PROVIDERS: Physician Assistant; Physician Assistant Medical; Admitting Provider Internal Medicine; Emergency Provider Emergency Medicine Emergency Medical Services; PCP Internal Medicine; Visit Provider Internal Medicine
DX: J18.9 Pneumonia, unspecified organism (principal); J96.01 Acute respiratory failure with hypoxia; J44.0 Chronic obstructive pulmonary disease with (acute) lower respiratory infection; J44.1 Chronic obstructive pulmonary disease with (acute) exacerbation; F03.90 Unspecified dementia, unspecified severity, without behavioral disturbance, psychotic disturbance, mood disturbance, and anxiety; E03.9 Hypothyroidism, unspecified; I10 Essential (primary) hypertension; Z20.822 Contact with and (suspected) exposure to COVID-19; Z87.891 Personal history of nicotine dependence; Z79.890 Hormone replacement therapy; Z79.899 Other long term (current) drug therapy
CPT/HCPCS: 0241U; 36415; 71046; 71275; 80048; 80076; 81001; 83605; 83735; 83880; 84145; 84484; 85007; 85025; 85027; 85610; 85730; 87040; 87086; 87633; 87651; 92610; 93005; 94640; 97161; 99284; 99285; J1650; J2543; J2919; Q9967

== ENCOUNTER → 2024-05-11 12:39 | Outpatient (BNV) | payer MEDICARE, OTHER, SELFPAY | PROVIDERS: Admitting Provider Internal Medicine; Emergency Provider Emergency Medicine Emergency Medical Services; PCP Internal Medicine; Visit Provider Internal Medicine | DX: I49.8 Other specified cardiac arrhythmias (principal); R94.31 Abnormal electrocardiogram [ECG] [EKG] | CPT/HCPCS: 93010 ==

== ENCOUNTER → 2024-05-11 15:38 | Outpatient (BNV) | payer MEDICARE, OTHER, SELFPAY | PROVIDERS: Admitting Provider Internal Medicine; Emergency Provider Emergency Medicine Emergency Medical Services; PCP Internal Medicine; Visit Provider Internal Medicine | DX: J18.9 Pneumonia, unspecified organism (principal); J96.01 Acute respiratory failure with hypoxia; J44.1 Chronic obstructive pulmonary disease with (acute) exacerbation | CPT/HCPCS: 99223; 99231; 99239 ==

== ENCOUNTER 2024-05-24 13:51 | Outpatient (REF) | payer MEDICARE, OTHER, SELFPAY ==
--- NOTE | ~2024-05-24 | XR_ITS ---
EXAMINATION: XR CHEST CLINICAL INFORMATION: Pneumonia. COMPARISON: 05/11/2024 TECHNIQUE: 2 views of the chest were obtained. FINDINGS: Lungs remain hyperexpanded. No focal consolidation. No pleural effusion. Cardiac silhouette is within normal limits. Millimeters rounded calcification projects over the left upper quadrant. Upper abdominal surgical clips. XR/XR chest 2V IMPRESSION: Stable examination. Hyperexpanded lungs.
[2024-05-24 15:53] LABS: Appearance Urine Clear; Color Urine Yellow; Glucose Urine UA Negative (Negative); Leukocyte Esterase Urine Moderate (2+) (Negative); Nitrite Urine Negative (Negative); PH 6.5 (5.0-9.0); Specific Gravity - Urine 1.015 (1.005-1.025); UMIC TRIGGER UACC YES; Urine Blood Moderate (2+) (Negative); Urine Ketones Negative (Negative); Urine Protein 30 (1+) mg/dL (Neg-Trace)
[2024-05-24 16:14] LABS: Bacteria Urine None Seen (None Seen); RBC Urine >20 /HPF (0-2); UACC Culture Trigger YES; WBC Urine >50 /HPF (0-5)
== END 2024-05-24 13:52 | disposition home or self-care (01) ==
LOC: HO.XRAY 13:51
PROVIDERS: PCP Internal Medicine; Visit Provider Internal Medicine
DX: J18.9 Pneumonia, unspecified organism (principal); R82.90 Unspecified abnormal findings in urine
CPT/HCPCS: 71046; 81001; 81003; 87086

== ENCOUNTER 2025-02-14 14:53 | Outpatient (AMB) | payer MEDICARE, OTHER, SELFPAY ==
--- NOTE | 2025-02-14 15:01 | A.OFFPC_ITS ---
Vital Signs 02/14/25 15:04 Height 5 ft Weight 123 lb BMI 24.0 BP 142/80 H Respiration 18 Pulse 88 Pulse Source Pulse Oximeter Temp 98.1 F Temp Source Temporal Artery Scan Pulse Oximetry (%) 94 Oxygen Delivery Method Room Air Intake Visit Reasons: Routine Automotive Service Assistant Required: No Accompanied by: Daughter Allergies environmental allergies Allergy (Intermediate, Verified 02/14/25 15:02) Cough Medication List - Last Reconciled 02/14/25 by Sheryl Hinton MD amlodipine 5 mg PO DAILY cholecalciferol (vitamin D3) 25 mcg PO DAILY cyanocobalamin (vitamin B-12) 1,000 mcg PO DAILY levothyroxine 75 mcg PO DAILY@0600 memantine 10 mg PO BID metoprolol succinate ER 12.5 mg PO DAILY omeprazole 20 mg PO DAILY quetiapine 25 mg PO BEDTIME tiotropium bromide 1.25 mcg/actuation (Spiriva Respimat) 1 puff inhalation DAILY PRN venlafaxine ER 75 mg PO DAILY Tobacco use date assessed: 02/14/25 Fall risk assessment: No Falls in past year Last assessed Fall Risk: 02/14/25 Dental Screening Dental Screen Date: 02/14/25 Did you have a dental visit in the last 12 months?: Yes Did you have a dental problem in the last 6 months where you did not have access to dental care?: No Was dental information given to patient?: Yes (implants and dentures) HPI HPI Comments History of Present Illness Details 89 year old female with a past medical h istory of htn, copd, IBS, cough, dyspnea, hypothyroid, [place] presenting for follow up Last seen by PCP 04/2024 CV: On norvasc 5, toprol 12.5. Denies chest pain. Ongoing dyspnea, low exercise capacity. BH: on venlafaxine, seroquel 25. memory loss. On memantine for memory. Excessive fatigue for the past few months. Denies LN, fevers, excessive weight loss. denies dark stools Hypothyroid-on levothyroxine 75 mcg daily GERD: On omeprazole. History of GIB COPD: Previously on spiriva. [place]: Doesnt wear hearing aid. Very painful right leg at night. lower leg circumferential no swelling, redness. Denies low back pain ROS see HPI PHYSICAL EXAM: GENERAL: Alert and oriented x 3. NAD EYES: EOMI. Anicteric. HENT: Moist mucous membranes. No scleral icterus. No cervical lymphadenopathy. LUNGS: Clear to auscultation bilaterally. CARDIOVASCULAR: Regular rate and rhythm. No murmur. No JVD. ABDOMEN: Soft, non-tender +bs EXTREMITIES: No edema. Non-tender. SKIN: No rashes or lesions. Warm. NEUROLOGIC: No focal neurological deficits. CN II-XII grossly intact PSYCHIATRIC: Cooperative. Appropriate mood and affect [facility] Medical History Pyloric channel ulcer Nephrolithiasis Common bile duct stone COPD (chronic obstructive pulmonary disease) Osteoporosis Hypertension Hypothyroidism Dementia V-tach Surgical History Hx of cystoscopy Hx of tonsillectomy Hx of appendectomy Hx of tubal ligation History of esophagogastroduodenoscopy (EGD) History of ERCP Family History Father Heart problem Mother Pancreatic cancer Social History Household Members: None Housing: House Do you presently have visiting nurse or other home services: No Alcohol intake: current Alcohol intake frequency: holidays/special occasions only Patient Tobacco Use Status: Former Tobacco user Second Hand Smoke Exposure: No Advance Directives Date on File: 02/07/24 service: No Current occupational status: retired Cognitive needs: No Hearing needs: Yes Vision needs: Yes (reading glasses) Questionnaire PHQ-9 Over the last 2 weeks, how often have you been bothered by any of the following problems? 1. Little interest or pleasure in doing things: not at all 2. Feeling down, depressed, or hopeless: not at all 3. Trouble falling or staying asleep, or sleeping too much: not at all 4. Feeling tired or having little energy: not at all 5. Poor appetite or overeating: not at all 6. Feeling bad about yourself - or that you are a failure or have let yourself or your family down: not at all 7. Trouble concentrating on things, such as reading the newspaper or watching television: not at all 8. Moving or speaking so slowly that other people could have noticed. Or the opposite - being so fidgety or restless that you have been moving around a lot more than usual: not at all 9. Thoughts that you would be better off or of hurting yourself in some way: not at all Total score: 0 Depression Screening Interpretation: Negative Depression Screening Done: Yes 60081 - PHQ-9 Billing: Yes Source: Developed by Drs. Pito Monaco, Haley Washington, Jos Swanson and colleagues, with an educational betty from [employer]. Thrive Questionnaire Date Thrive assessed: 05/12/24 AUDIT C Alcohol Use Questionnaire (AUDIT-C) 1. How often do you have a drink containing alcohol?: Monthly or less 2. How many drinks containing alcohol do you have on a typical day when you are drinking?: 1 or 2 3. How often do you have six or more drinks on one occasion?: Never Total Score: 1 Physical exam (Primary Care) Vital Signs: Last Vital Signs Temp 98.1 F 02/14/25 15:04 Pulse 88 02/14/25 15:04 Resp 18 02/14/25 15:04 BP 142/80 H 02/14/25 15:04 Pulse Ox 94 02/14/25 15:04 Oxygen Delivery Method Room Air 02/14/25 15:04 BMI result Body Mass Index 24.0 Tobacco/Smoking Status: Tobacco use Status Tobacco use date assessed 02/14/25 02/14/25 15:18 Patient Tobacco Use Status Former Tobacco user 02/14/25 15:18 PHQ-9: PHQ-9 Score PHQ-9: Total score 0 02/14/25 15:18 Depression Screening Interpretation: Negative Thrive Assessment: Date of Thrive Assessment Date Thrive assessed 05/12/24 02/14/25 15:18 Coding Level of Care Code New Pt Level 4 (84714) Complex EM visit Add On G2211 Diagnoses Fatigue, unspecified type R53.83 Fatigue type: unspecified Chronic obstructive pulmonary disease, unspecified COPD type J44.9 COPD type: unspecified COPD Primary hypertension I10 Hypertension type: primary hypertension Additional Codes PHQ-9 - 79875 - PHQ-9 Billing: Yes ([id number]) Assessment & Plan Assessment & Plan (1) Fatigue: Code(s): R53.83 - Other fatigue Category: Medical Qualifiers: Fatigue type: unspecified Qualified Code(s): R53.83 - Other fatigue (2) COPD (chronic obstructive pulmonary disease): Code(s): J44.9 - Chronic obstructive pulmonary disease, unspecified Category: Medical Qualifiers: COPD type: unspecified COPD Qualified Code(s): J44.9 - Chronic obstructive pulmonary disease, unspecified (3) Hypertension: Code(s): I10 - Essential (primary) hypertension Category: Medical Qualifiers: Hypertension type: primary hypertension Qualified Code(s): I10 - Essential (primary) hypertension Plan 89 to establish care Past medical, surgical, social, family history reviewed Excessive fatigue x 3-6 months. History of anemia, GI, abnormal CBC-labs ordered. EKG performed reviewed septal q waves. no acute changes COPD-start trelegy BP well controlled Right leg pain-nighttime.start gabapentin qhs. return in 6-8 weeks Orders: Orders IRON PROFILE Today D64.9 - Anemia, unspecified, E03.9 - Hypothyroidism, unspecified, F03.90 - Unspecified dementia, unspecified severity, without behavioral disturbance, psychotic disturbance, mood disturbance, and anxiety, I10 - Essential (primary) hypertension, J44.9 - Chronic obstructive pulmonary disease, unspecified XR lumbar spine 2-3V Today M54.30 - Sciatica, unspecified side, M79.604 - Pain in right leg Complete Blood Count Auto Diff Today D64.9 - Anemia, unspecified, E03.9 - Hypothyroidism, unspecified, F03.90 - Unspecified dementia, unspecified severity, without behavioral disturbance, psychotic disturbance, mood disturbance, and anxiety, I10 - Essential (primary) hypertension, J44.9 - Chronic obstructive pulmonary disease, unspecified Pathologist Review - CBC Today D64.9 - Anemia, unspecified, E03.9 - Hypothyroidism, unspecified, F03.90 - Unspecified dementia, unspecified severity, without behavioral disturbance, psychotic disturbance, mood disturbance, and anxiety, I10 - Essential (primary) hypertension, J44.9 - Chronic obstructive pulmonary disease, unspecified Comprehensive Met. Panel Today D64.9 - Anemia, unspecified, E03.9 - Hypothyroidism, unspecified, F03.90 - Unspecified dementia, unspecified severity, without behavioral disturbance, psychotic disturbance, mood disturbance, and anxiety, I10 - Essential (primary) hypertension, J44.9 - Chronic obstructive pulmonary disease, unspecified Vitamin B12 and Folate Today D64.9 - Anemia, unspecified, E03.9 - Hypothyroidism, unspecified, F03.90 - Unspecified dementia, unspecified severity, without behavioral disturbance, psychotic disturbance, mood disturbance, and anxiety, I10 - Essential (primary) hypertension, J44.9 - Chronic obstructive pulmonary disease, unspecified Lipid Panel Today D64.9 - Anemia, unspecified, E03.9 - Hypothyroidism, unspecified, F03.90 - Unspecified dementia, unspecified severity, without behavioral disturbance, psychotic disturbance, mood disturbance, and anxiety, I10 - Essential (primary) hypertension, J44.9 - Chronic obstructive pulmonary disease, unspecified UA CC w/rflx Micro + Cult Today R53.83 - Other fatigue Magnesium Today M79.604 - Pain in right leg Medications: New Trelegy Ellipta 200-62.5-25 mcg (ndgyfskdpvu-wdibvvxzj-lvmpvgjo) 1 inh inhalation DAILY 3 ea 3RF NS J44.9 - Chronic obstructive pulmonary disease, unspecified gabapentin 300 mg PO BEDTIME 90 caps 3RF Discontinued loratadine Discontinued Reason: Patient no longer taking 10 mg PO DAILY 30 tabs 0RF prednisone Discontinued Reason: Patient no longer taking 40 mg (2 x 20 mg) PO DAILY 6 tabs 0RF aijtmmaqprhyy-IG-kcvcdiunmjb 2.5-5-50 mg/5 mL (Robitussin Cough and Cold CF) Discontinued Reason: Patient no longer taking 30 mL PO Q6-8H PRN 118 mL 0RF cough amoxicillin-pot clavulanate 875-125 mg Discontinued Reason: Patient no longer taking 1 tab PO Q12H 14 tabs 0RF
[2025-02-14 15:04] VITALS: BP 142/80; PULSE 88; RESP 18; TEMP 36.7; O2SAT 94; BMI 24.0
--- OUTSIDE RECORDS SUMMARY | 2025-02-14 17:02 | XMS_ITS | Patient Health Record ---
Author Organization [facility] Address [address] [place] [address] Care Team Providers Care Architectural Draftsperson Name Role Phone Bret Carpenter MD Primary Care Provider Sharad Valero Jr Unavailable Allergies No Known Allergies Results Component Value Reference Range Notes Pathology Reviewed date:05/02/2024 11:18:41 AM Interpretation: Performing Lab:[facility], [address] [place] [id number] Notes/Report: Name: Toribio Schneider Age/Sex: 89/F : 1935 Unit#: [id number] Attend Dr: Sharad Rodriguez MD Re04/17/24 Status : [facility] Disch: SPEC : [id number] REC STATUS: DAVID PAYAN NUM: [id number] RENE: 04/17/24-[address] [facility] [address]: Sharad Rodriguez MD ENTERED: 04/18/24 34 SP TYPE: Surgical OTHR DR: Bret Carpenter MD ORDERED: HE Stain/3, Gross Micro L4, IHC, Special st. 2, H. pylori, AB/PAS Diagnosis Gastric antrum, biop sy: Gastric antral mucosa with congestion and chronic gastritis with mild active inflamma tion; negative for H pylori, intestinal metaplasia and dysplasia. Clinical History Pre-Op Dx: Gastric ulcer Post-Op Dx: Gastric ulcer healed Microscopic Description Microscopic sections reviewed. Immunostain for H. pylori is negative. AB/PAS is negative for intestinal metap lasia. Controls stain appropriately. Material Received Antral biopsy Gross Description Received in formalin labeled ?antral biopsy? are 2 browning irregular tissue fragments measuring 0.15 and 0.3 cm, sub mitted in toto in a cassette labeled A. CEDS Special studies orde red and performed: Immunostain for H. pylori on A1; AB/PAS stains on A1. Copies To: Sharad Rodriguez MD [address] [place] [address] [id number] [place] [id number] Bret Carpenter MD [address] [place] [address], [address] [address] Signed (si gnature on file) Andreina Huntley 04/23/24 1402 END OF REPORT Reason For Referral No Information Medications Medication SIG (Take, Route, Frequency, Duration) Notes [...] e a day for 30 day(s) Active Immunizations Vaccine Route Administration Date Status Comme nts Flu vaccine no Preserv 3 and > Unknown 09/07/2016 Admin istered Influenza Unknown 08/28/2018 Administered Influenza Unknown 09/13/2023 Administered Social History Tobacco Use: Social History Observation Description Date Details (start date - stop date) Former Smoker NA - NA Tobacco Use/Smoking Question Answer Notes Patient is a former smoker How long has it been since you last smoked? > 10 years Alcohol Screen Question Answer Notes Did you have a drink containing alcohol in the p ast year? No Points 0 Interpretation Negative Section Notes: Tobacco use is negative alco hol use is one drink per day. Tobacco use is negative alco hol use is one drink per day. Tobacco use is negative alco hol use is one drink per day. Tobacco use is negative alco hol use is one drink per day. Tobacco use is negative alco hol use is one drink per day. Problems Problem Type SNOMED Code ICD Code Onset Dates Problem Status W/U Status Risk Notes Problem 23171186 Epigastric pain (R10.13) Active confirmed Problem 31699086 Acute gastric ul cer with hemorrhage (K25.0) Active confirmed Problem 142147856 Gastroesophageal reflux disease without esophagitis (K21.9) Active confirmed Problem 88552367 Esophageal spasm (K22.4) Active confirmed Problem 140883732 Common bile duct calculi (K80.50) Active confirmed Problem Gastric ulcer (645785510) Gastric ulcer (K25.9) Active confirmed Problem 04758622 Secondary hypertension (I15.9) Active confirmed Vital Signs Temperature 97.3 degrees Fahrenheit 02/19/2024 Blood pressure diastolic 00 mm Hg 02/19/2024 Height 60.25 in 02/19/2024 Blood pressure systolic 000 mm Hg 02/19/2024 Weight 116 lbs 02/19/2024 BMI 22.46 kg/m2 02/19/2024 Encounters Encounter Location Date Provider Diagnosis [facility] Outpatient [address], [place] [id number] 04/17/2024 Sharad Rodriguez Jr Gastric ulcer K25.9 [facility] [address] [place] [phone] 02/19/2024 Sharad Rodriguez Jr Acute gastric ulcer with hemorrhage K25.0 [facility] [address] [place] [phone] 03/08/2024 Sharad Rodriguez Jr [facility] [address] [place] [phone] 05/02/2024 Sharad Rodriguez Jr Assessments Encounter Date Diagnosis (ICD Code) Assessment Notes Treatment Notes Treatment Clinical Notes Section Notes 04/17/2024 Gastric ulcer (ICD-10 - K25.9) 02/19/2024 Acute gastric ulcer with hemorrhage (ICD-10 - K25.0) Gastric tissue biopsy and culture material was printed We discussed peptic ulcer disease today. We recommended she continue proton pump inhibitor. She should avoid NSAIDs. She will have followup endoscopy in 8-12 weeks to assess for ulcer healing. She'll continue vitamin C and iron. Plan Of Treatment Future Test Test Name Order Date COLONOSCOPY 02/01/2012 UPPER GI ENDOSCOPY 10/10/2018 ERCP REMOVAL OF STONES 10/10/2018 UPPER GI ENDOSCOPY 02/19/2024 Insurance Providers Payer Name Payer Address Payer Phone Subscriber Number Group Number Insured Name Patient Relationship to Insured Coverage Start Date Coverage End Date MEDICARE OF [place] [address] [id number] [address] [phone] [id number] NADIR GALEANO Self - patient is the insured [facility] [address] [place], [place] [phone] [id number] NADIR GALEANO Self - patient is the insured Medical (General) History Medical History History ICD Code Osteoporosis Hypothyroidism Hypertension COPD Dementia/mood disorder Common bile duct stones, status post ERC P Nephrolithiasis Ventricular tachycardia Peptic ulcer disease, EGD with control o f hemorrhage 02/17 Surgical History Surgery Date(Month/Year) tubal ligation appendectomy tonsillectomy kidney stone surgery Hospitalization History Reason Date(Month/Year) Pyloric channel ulcer with bleeding 02/17
--- OUTSIDE RECORDS SUMMARY | 2025-02-14 17:02 | XMS_ITS ---
Author Organization [facility] Address [address] [place] [address] Care Team Providers Care Dial Maker Name Role Phone Bret Carpenter MD Primary Care Provider Sharad Valero Jr [phone] REASON FOR VISIT pathology/ left message for pt call back Encounters Encounter Location Date Provider Diagnosis [facility] [address] [place] [address] 05/02/2024 Sharad Rodriguez Jr Plan Of Treatment No Information Progress Notes * NADIR ALLISON DDOB:[birth year] (89 yo F)Acc No.[id number]:05/02/2024 Patient:?NADIR ALLISON :1935???Age:89 Y???Sex:Female Address:[address] [place] [address] [place] [address] * true * Date:? Generated for Printi ng/Faxing/eTransmitting on:?02/14/2025 05:01 PM EDT
--- OUTSIDE RECORDS SUMMARY | 2025-02-14 17:02 | XMS_ITS ---
Author Organization [facility] Address [address] [place] [address] [place] [address] Care Team Providers Care Traffic Control Officer Name Role Phone Bret Carpenter MD Primary Care Provider Sharad Valero Jr REASON FOR VISIT omeprazole Encounters Encounter Location Date Provider Diagnosis [facility] [address] [place] [address] [place] [address] 03/08/2024 Sharad Rodriguez Jr Plan Of Treatment No Information Progress Notes * NADIR ALLISON DDOB:[birth year] (89 yo F)Acc No.[id number]:03/08/2024 Patient:?NADIR ALLISON :1935???Age:89 Y???Sex:Female Address:[address] [place] [address] [place] [address] * true * Date:? Generated for June wallace/Cynthia/eTransmitting on:?02/14/2025 05:01 PM EDT
--- OUTSIDE RECORDS SUMMARY | 2025-02-14 17:03 | XMS_ITS ---
Author Organization [facility] Address [address] [place] [address] Care Team Providers Care Lead Java Developer Architect Name Role Phone Bret Carpenter MD Primary Care Provider Sharad Valero Jr REASON FOR VISIT gastric ulcers Encounters Encounter Location Date Provider Diagnosis [facility] [address] [place] [phone] 04/17/2024 Sharad Rodriguez Jr Gastric ulcer K25.9 Assessments Encounter Date Diagnosis (ICD Code) Assessment Notes Treatment Notes Treatment Clinical Notes Section Notes 04/17/2024 Gastric ulcer (ICD-10 - K25.9) Plan Of Treatment No Information Progress Notes * NADIR ALLISON DDOB:[birth year] (89 yo F)Acc No.[id number]:04/17/2024 EGD/MAC Patient:?NADIR ALLISON Provider:?Sharad Rodriguez MD :1935???Age:89 Y???Sex:Female D ate:04/17/2024 Address:[address] [place] [address] [facility] Pcp:Bret Carpenter MD Subjective: * Chief Complaints: * ???1. Gastric ulcers. * Medical History:? Objective: * Vitals:? Assessment: * Assessment: 1.?Gastric ulcer - K25.9 (Pr imary)??? Plan: * Treatment: * Procedure Codes:?17183 UPPER GI ENDOSCOPY, BIOPSY * * The named appointment provid er may or may not be the originator of this progress note, and it is not deemed complete until electronically signed by the appointment provider. Sign off status: Pending * Provider:?Sharad Rodriguez MD Date:?0 04/17/2024 Generated for June wallace/Cynthia/Swathi on:?02/14/2025 05:02 PM EDT
== END 2025-02-14 16:01 | disposition home or self-care (01) ==
LOC: HO.HMCHD 14:54
PROVIDERS: PCP Internal Medicine; Visit Provider Internal Medicine
DX: R53.83 Other fatigue (principal); J44.9 Chronic obstructive pulmonary disease, unspecified; I10 Essential (primary) hypertension

== ENCOUNTER 2025-02-14 14:53 | Outpatient (REF) | payer MEDICARE, OTHER, SELFPAY ==
--- NOTE | ~2025-02-14 | XR_ITS ---
EXAMINATION: XR LUMBOSACRAL SPINE CLINICAL INFORMATION: M79.604 - rule out radiculopathy COMPARISON: Radiculopathy. TECHNIQUE: Three views of the lumbosacral spine. FINDINGS: Multilevel endplate sclerosis. No acute cortical disruption or gross malalignment. Sclerosis and the sacroiliac joints. No lytic or blastic lesions. There is a 23 mm calcification in the left upper abdomen likely overlapping the left kidney shadow. Vascular calcifications, aorta. Vascular clips both left and right upper abdomen. XR/XR lumbar spine 2-3V IMPRESSION: Nybq-fm-otkhxaid multilevel thoracolumbar spondylosis without acute fracture or listhesis. Probable nephrolithiasis, left kidney. Electronically signed by: Nader Cortes MD 02/17/2025 10:06 AM EDT
[2025-02-14 16:28] LABS: MANUAL DIFF FLAG NO
[2025-02-14 18:23] LABS: Basophils Absolute Auto 0.1 X10*3/uL (0.0-0.2); Basophils Percent Auto 0.9 % (0-2); Eosinophils Absolute Auto 0.4 X10*3/uL (0.0-0.4); Eosinophils Percent Auto 5.5 % (0-4); Hematocrit 41.8 % (37.0-47.0); Hemoglobin 13.5 g/dl (12.0-16.0); Imm Gran Abs Auto 0.01 X10*3/uL (0.00-0.03); Imm Gran Pct Auto 0.2 % (0.0-0.4); Lymphocytes Absolute Auto 1.4 X10*3/uL (1.2-4.9); Lymphocytes Percent Auto 21.1 % (20-40); Mean Corpuscular HGB Conc 32.3 g/dl (31.0-35.0); Mean Corpuscular Hemoglobin 30.1 pg (27.0-33.0); Mean Corpuscular Volume 93.3 fL (80.0-98.0); Mean Platelet Volume 8.7 fL (9.4-12.3); Monocytes Absolute Auto 0.8 X10*3/uL (0.1-1.2); Monocytes Percent Auto 11.5 % (2-11); Neutrophils Percent Auto 60.8 % (45-73); Platelet Count 293 X10*3/uL (160-400); Red Blood Count 4.48 X10*6/uL (4.20-5.50); Red Cell Distribution Width 13.3 % (11.0-16.0); White Blood Count 6.6 X10*3/uL (4.8-10.8)
[2025-02-14 18:54] LABS: Alanine Aminotransferase 18 U/L (0-31); Albumin Level 4.2 g/dL (3.5-5.0); Alkaline Phosphatase 105 U/L (39-117); Anion Gap 12 (12-20); Aspartate Amino Transferase 25 U/L (5-31); Bilirubin Total 0.2 mg/dL (0.0-1.0); Blood Urea Nitrogen 15 mg/dL (9-16); Calcium 9.5 mg/dL (8.4-10.2); Carbon Dioxide 29 mmol/L (22-29); Chloride 105 mmol/L (96-108); Cholesterol 214 mg/dL (<200); Estimated Glomerular Filt Rate > 60; Glucose Random 79 mg/dL (60-115); HDL Cholesterol 65 mg/dL (>40); Iron 66 mcg/dL (30-160); LDL Cholesterol Calculated 123 mg/dL (<100); Magnesium 2.2 mg/dL (1.6-2.6); Percent Iron Saturation 23 % (15-50); Potassium 4.1 mmol/L (3.3-5.1); Sodium 142 mmol/L (135-145); Total Iron Binding Capacity 287 mcg/dL (228-428); Total Protein 7.7 g/dL (6.5-8.0); Triglycerides 131 mg/dL (<150); Unsaturated Iron Binding 221 ug/dL
[2025-02-14 19:27] LABS: Folate 6.8 ng/mL (> or = 4.0); Vitamin B12 > 2000 pg/mL (200-900)
== END 2025-02-14 14:54 | disposition home or self-care (01) ==
LOC: HO.LAB 14:53
PROVIDERS: PCP Internal Medicine; Visit Provider Internal Medicine
DX: R53.83 Other fatigue (principal); J44.9 Chronic obstructive pulmonary disease, unspecified; I10 Essential (primary) hypertension; D64.9 Anemia, unspecified; E03.9 Hypothyroidism, unspecified; F03.90 Unspecified dementia, unspecified severity, without behavioral disturbance, psychotic disturbance, mood disturbance, and anxiety; M79.604 Pain in right leg; M54.30 Sciatica, unspecified side
CPT/HCPCS: 72100; 80053; 80061; 82607; 82746; 83540; 83735; 85025; 96127; 99202

== ENCOUNTER → 2025-02-14 16:35 | Outpatient (BNV) | payer MEDICARE, OTHER, SELFPAY | PROVIDERS: PCP Internal Medicine; Visit Provider Radiology Diagnostic Radiology | DX: M47.815 Spondylosis without myelopathy or radiculopathy, thoracolumbar region (principal) | CPT/HCPCS: 72100 ==

== ENCOUNTER 2025-03-28 14:49 | Outpatient (AMB) | payer MEDICARE, OTHER, SELFPAY ==
--- OUTSIDE RECORDS SUMMARY | 2025-03-28 14:53 | XMS_ITS | Patient Health Record ---
Author Organization [facility] Address [address] [place] [address] Care Team Providers Care Boring Mill Set Up Operator Vertical Name Role Phone Bret Carpenter MD Primary Care Provider Sharad Valero Jr Unavailable Allergies No Known Allergies Results Component Value Reference Range Notes Pathology Reviewed date:05/02/2024 11:18:41 AM Interpretation: Performing Lab:[facility], [address] [place] [id number] Notes/Report: Name: Toribio Schneider Age/Sex: 89/F : 1935 Unit#: [id number] Attend Dr: Sharad Rodriguez MD Re04/17/24 Status : [facility] Disch: SPEC : [id number] REC STATUS: DAVID PAYAN NUM: [id number] RENE: 04/17/24-1429 [facility] DR: Sharad Rodriguez MD ENTERED: 04/18/24 34 [...] on A1. Copies To: Sharad Rodriguez MD [address] [place] [address] [address] [place] [address] Bret Carpenter MD [address] [place] [address], [address] [address] Signed (si gnature on file) Andreina Huntley [...] Problem Status W/U Status Risk Notes Problem 25870706 Epigastric pain (R10.13) Active confirmed Problem 02975129 Acute gastric ul cer with hemorrhage (K25.0) Active confirmed Problem 068909001 Gastroesophageal reflux disease without esophagitis (K21.9) Active confirmed Problem 06110030 Esophageal spasm (K22.4) Active confirmed Problem 248390210 Common bile duct calculi (K80.50) Active confirmed Problem Gastric ulcer (K25.9) Active confirmed Problem 80466359 Secondary hypertension (I15.9) Active confirmed Encounters Encounter Location Date Provider Diagnosis [facility] [address] [place], [place] [phone] 04/17/2024 Sharad Rodriguez Jr Gastric ulcer K25.[address] [facility] [address] [place] [address] 05/02/2024 Sharad Rodriguez Jr Assessments Encounter Date Diagnosis (ICD Code) Assessment Notes Treatment Notes Treatment Clinical Notes Section Notes 04/17/2024 Gastric ulcer (ICD-10 - K25.9) Plan Of Treatment Future Test Test Name Order Date COLONOSCOPY 02/01/2012 UPPER GI ENDOSCOPY 10/10/2018 ERCP REMOVAL OF STONES 10/10/2018 UPPER GI ENDOSCOPY 02/19/2024 Insurance Providers Payer Name Payer Address Payer Phone Subscriber Number Group Number Insured Name Patient Relationship to Insured Coverage Start Date Coverage End Date MEDICARE OF [place] [address] [place] [address] [id number] NADIR GALEANO Self - patient is the insured [facility] [address] [place] [address] [id number] NADIR GALEANO Self - patient is the [...]
--- OUTSIDE RECORDS SUMMARY | 2025-03-28 14:53 | XMS_ITS ---
Author Organization [facility] Address [address] [place], [place] [address] [address] Care Team Providers Care Weaver Tire Cord Name Role Phone Bret Carpenter MD Primary Care Provider Sharad Valero Jr REASON FOR VISIT omeprazole Encounters Encounter Location Date Provider Diagnosis [facility] [address] [place], [place] [address] [address] 03/08/2024 Sharad Rodriguez Jr Plan Of Treatment No Information Progress Notes * NADIR ALLISON DDOB:[birth year] (89 yo F)Acc No.[id number]:03/08/2024 Patient:?NADIR ALLISON :1935???Age:89 Y???Sex:Female Address:[address] [place] [address] [place] [address] * true * Date:? Generated for June wallace/Cynthia/eTransmitting on:?03/28/2025 02:53 PM EDT
--- OUTSIDE RECORDS SUMMARY | 2025-03-28 14:54 | XMS_ITS ---
Author Organization [facility] Address [address] [place] [address] Care Team Providers Care Compliance Investigator Name Role Phone Bret Carpenter MD Primary Care Provider Sharad Valero Jr REASON FOR VISIT pathology/ left message for pt call back Encounters Encounter Location Date Provider Diagnosis [facility] [address] [place] [address] 05/02/2024 Sharad Rodriguez Jr Plan Of Treatment No Information Progress Notes * NADIR ALLISON DDOB:[birth year] (89 yo F)Acc No.[id number]:05/02/2024 Patient:?NADIR ALLISON :1935???Age:89 Y???Sex:Female Address:[address] [place] [address] [place] [address] * true * Date:? Generated for Printi ng/Faxing/eTransmitting on:?03/28/2025 02:53 PM EDT
--- OUTSIDE RECORDS SUMMARY | 2025-03-28 14:54 | XMS_ITS ---
Author Organization [facility] Address [address] [place] [address] Care Team Providers Care Rivet Thrower Name Role Phone Bret Carpenter MD Primary Care Provider Sharad Valero Jr REASON FOR VISIT gastric ulcers Encounters Encounter Location Date Provider Diagnosis [facility] [address] [place] [phone] 04/17/2024 Sharad Rodriguez Jr Gastric ulcer K25.9 Assessments Encounter Date Diagnosis (ICD Code) Assessment Notes Treatment Notes Treatment Clinical Notes Section Notes 04/17/2024 Gastric ulcer (ICD-10 - K25.9) Plan Of Treatment No Information Progress Notes * NADIR ALLISON DDOB:[birth year] (89 yo F)Acc No.[id number]:04/17/2024 EGD/MAC Patient:?NADIR ALLISON Provider:?Sharad Rodriguez MD :1935???Age:89 Y???Sex:Female D ate:04/17/2024 Address:[address] [place] [address] [facility] Pcp:Bret Carpenter MD Subjective: * Chief Complaints: * ???1. Gastric ulcers. * Medical History:? Objective: * Vitals:? Assessment: * Assessment: 1.?Gastric ulcer - K25.9 (Pr imary)??? Plan: * Treatment: * Procedure Codes:?57951 UPPER GI ENDOSCOPY, BIOPSY * * The named appointment provid er may or may not be the originator of this progress note, and it is not deemed complete until electronically signed by the appointment provider. Sign off status: Pending * Provider:?Sharad Rodriguez MD Date:?0 04/17/2024 Generated for June wallace/Cynthia/Swathi on:?03/28/2025 02:54 PM EDT
--- NOTE | 2025-03-28 15:06 | A.OFFPC_ITS ---
Vital Signs 03/28/25 15:07 Height 5 ft Weight 57.153 kg BMI 24.6 BP 130/70 Blood Pressure Location Rt brachial Position Sitting Pulse 71 Pulse Source Pulse Oximeter Temp 97.8 F Temp Source Axillary Pulse Oximetry (%) 94 Oxygen Delivery Method Room Air Intake Visit Reasons: Routine Orthotics Prosthetics Assistant Required: No Allergies environmental allergies Allergy (Intermediate, Verified 03/28/25 15:07) Cough Medication List - Last Reconciled 03/28/25 by EDWAR Tam amlodipine 5 mg PO DAILY cholecalciferol (vitamin D3) 25 mcg PO DAILY gabapentin 300 mg PO BEDTIME levothyroxine 50 mcg PO DAILY memantine 10 mg PO BID metoprolol succinate ER 12.5 mg (1/2 x 25 mg) PO DAILY omeprazole 20 mg PO DAILY quetiapine 25 mg PO BEDTIME venlafaxine ER 75 mg PO DAILY Tobacco use date assessed: 03/28/25 Fall risk assessment: No Falls in past year Last assessed Fall Risk: 03/28/25 Dental Screening Dental Screen Date: 03/28/25 Did you have a dental visit in the last 12 months?: Yes Did you have a dental problem in the last 6 months where you did not have access to dental care?: No HPI HPI Comments History of Present Illness Details 89-year-old female with history of unspe cified dementia, hypothyroidism, hypertension, COPD, and history of V-tach presents to the office today with her daughter for routine follow-up. The patient is currently living by herself in a house without any issues. She is independent with ADLs. She is no longer driving at the recommendation of her neurologist. She does have compromised decision making and short-term memory issues per her daughter. She does have her family check in on her twice daily. She does have unsteady gait and ambulates with a cane and denies any recent falls. She is eating and drinking without difficulty and has not had any significant weight loss. She is compliant with all of her medications. There are no complaints at this time [facility] Medical History Pyloric channel ulcer Nephrolithiasis Common bile duct stone COPD (chronic obstructive pulmonary disease) Osteoporosis Hypertension Hypothyroidism Dementia V-tach Surgical History Hx of cystoscopy Hx of tonsillectomy Hx of appendectomy Hx of tubal ligation History of esophagogastroduodenoscopy (EGD) History of ERCP Family History (Updated 03/28/25 @ 15:18 by Sabine Staley MA) Father Heart problem Mother Pancreatic cancer Social History Household Members: None Housing: House Do you presently have visiting nurse or other home services: No Alcohol intake: current Alcohol intake frequency: holidays/special occasions only Patient Tobacco Use Status: Former Tobacco user e-Cigarette/Vaping Use: Former Use Second Hand Smoke Exposure: No Advance Directives Date on File: 02/07/24 service: No Current occupational status: retired Cognitive needs: No Hearing needs: Yes Vision needs: Yes (reading glasses) Questionnaire PHQ-9 Over the last 2 weeks, how often have you been bothered by any of the following problems? 1. Little interest or pleasure in doing things: not at all 2. Feeling down, depressed, or hopeless: not at all 3. Trouble falling or staying asleep, or sleeping too much: not at all 4. Feeling tired or having little energy: not at all 5. Poor appetite or overeating: not at all 6. Feeling bad about yourself - or that you are a failure or have let yourself or your family down: not at all 7. Trouble concentrating on things, such as reading the newspaper or watching television: not at all 8. Moving or speaking so slowly that other people could have noticed. Or the opposite - being so fidgety or restless that you have been moving around a lot more than usual: not at all 9. Thoughts that you would be better off or of hurting yourself in some way: not at all Total score: 0 Source: Developed by Drs. Pito Monaco, Haley Washington, Jos Swanson and colleagues, with an educational betty from [employer] ([employer]). Thrive Questionnaire Date Thrive assessed: 03/28/25 I am a: Patient Within the past 12 months, did the food you bought not last and you didn't have the money to get more?: Never true Within the past 12 months, did you worry whether your food would run out before you got money to buy more?: Never true Do you have trouble paying for medicines?: No Do you have trouble getting transportation to medical appointments?: No Do you have trouble paying your heating and electricity bill?: No Do you have trouble taking care of your child, family member or friend?: No Do you have trouble with day-to-day activities such as bathing, preparing meals, shopping, managing finances, etc.?: No Are you currently unemployed and looking for a job?: No Are you interested in more education?: No THRIVE Score: 0 AUDIT C Alcohol Use Questionnaire (AUDIT-C) 1. How often do you have a drink containing alcohol?: Monthly or less 2. How many drinks containing alcohol do you have on a typical day when you are drinking?: 1 or 2 3. How often do you have six or more drinks on one occasion?: Less than monthly Total Score: 2 JULIA-7 AMB Questionnaire JULIA-7 Date JULIA - 7 assessed: 03/28/25 Feeling nervous, anxious, or on edge: 0 = Not at all Not being able to stop or control worryin = Not at all Worrying too much about different things: 0 = Not at all Trouble relaxin = Not at all Being so restless that it is hard to sit still: 0 = Not at all Becoming easily annoyed or irritable: 0 = Not at all Feeling afraid as if something awful might happen: 0 = Not at all Total JULIA-7 score (0-4 normal; 5-9 mild; 10-14 moderate; 15-21 severe): 0 Source: Developed by Drs. Pito Monaco, Haley Washington, Jos Swanson and colleagues, with an educational betty from [employer] ([employer]). Review of Systems Const All systems reviewed & are unremarkable except as noted in HPI and below Physical exam (Primary Care) Vital Signs: Last Vital Signs Temp 97.8 F 03/28/25 15:07 Pulse 71 03/28/25 15:07 BP 130/70 03/28/25 15:07 Pulse Ox 94 03/28/25 15:07 Oxygen Delivery Method Room Air 03/28/25 15:07 BMI result Body Mass Index 24.6 Tobacco/Smoking Status: Tobacco use Status Tobacco use date assessed 03/28/25 03/28/25 15:08 Patient Tobacco Use Status Former Tobacco user 03/28/25 15:08 e-Cigarette/Vaping Use Former Use 03/28/25 15:08 PHQ-9: PHQ-9 Score PHQ-9: Total score 0 03/28/25 15:48 Thrive Assessment: Date of Thrive Assessment Date Thrive assessed 03/28/25 03/28/25 15:08 Const Other: Constitutional - Awake and Alert, No apparent distress Eyes - PERRLA, EOMI Cardiovascular - S1S2, RRR, No edema Respiratory - Normal lung expansion, Normal respiratory effort, No respiratory distress, CTA bilaterally Extremities - no calf tenderness bilaterally, no swelling Skin - Warm/Dry Psychological - Appropriate affect Coding Level of Care Code Tele New Pt Level 4 (41366) Complex EM visit Add On G2211 Diagnoses Chronic obstructive pulmonary disease, unspecified COPD type J44.9 COPD type: unspecified COPD Dementia with mood disturbance, unspecified dementia severity, unspecified dementia type F03.93 Dementia type: unspecified type Dementia severity: unspecified severity Dementia behavioral or psychological symptom: with mood disturbance Hypothyroidism E03.9 Primary hypertension I10 Hypertension type: primary hypertension Assessment & Plan Assessment & Plan (1) COPD (chronic obstructive pulmonary disease): Code(s): J44.9 - Chronic obstructive pulmonary disease, unspecified Category: Medical Qualifiers: COPD type: unspecified COPD Qualified Code(s): J44.9 - Chronic obstructive pulmonary disease, unspecified Plan: Stable. Not on any controller inhalers. Albuterol in the as needed for shortness of breath and wheezing (2) Dementia: Code(s): F03.90 - Unspecified dementia, unspecified severity, without behavioral disturbance, psychotic disturbance, mood disturbance, and anxiety Category: Medical Qualifiers: Dementia type: unspecified type Dementia severity: unspecified severity Dementia behavioral or psychological symptom: with mood disturbance Qualified Code(s): F03.93 - Unspecified dementia, unspecified severity, with mood disturbance Plan: Stable. Remains independent with ADLs and strong family support. Continue following with neurology as scheduled. Take memantine as well as Seroquel and venlafaxine as prescribed. Mood appears stable. (3) Hypothyroidism: Code(s): E03.9 - Hypothyroidism, unspecified Category: Medical Plan: TSH ordered. Continue levothyroxine 50 mcg daily. (4) Hypertension: Code(s): I10 - Essential (primary) hypertension Category: Medical Qualifiers: Hypertension type: primary hypertension Qualified Code(s): I10 - Essential (primary) hypertension Plan: Controlled. Continue metoprolol and amlodipine as prescribed. Low-sodium diet Orders: Orders TSH reflex Free T4 Today E03.9 - Hypothyroidism, unspecified TSH reflex Free T4 5 Months E03.9 - Hypothyroidism, unspecified, I10 - Essential (primary) hypertension Basic Metabolic Panel 5 Months E03.9 - Hypothyroidism, unspecified, I10 - Essential (primary) hypertension Medications: New memantine 10 mg PO BID 180 tabs 1RF metoprolol succinate ER 12.5 mg (1/2 x 25 mg) PO DAILY 90 tabs 1RF amlodipine 5 mg PO DAILY 90 tabs 1RF levothyroxine 50 mcg PO DAILY 90 caps 1RF venlafaxine ER WITH FOOD 75 mg PO DAILY 90 caps 1RF Refilled gabapentin 300 mg PO BEDTIME 90 caps 3RF
[2025-03-28 15:07] VITALS: BP 130/70; PULSE 71; TEMP 36.6; O2SAT 94; BMI 24.6
== END 2025-03-28 15:52 | disposition home or self-care (01) ==
LOC: HO.HMCHD 14:50
PROVIDERS: PCP Internal Medicine; Visit Provider Physician Assistant
DX: J44.9 Chronic obstructive pulmonary disease, unspecified (principal); F03.93 Unspecified dementia, unspecified severity, with mood disturbance; E03.9 Hypothyroidism, unspecified; I10 Essential (primary) hypertension

== ENCOUNTER → 2025-03-28 14:49 | Outpatient (BNVA) | payer MEDICARE, OTHER, SELFPAY | PROVIDERS: PCP Internal Medicine; Visit Provider Physician Assistant | DX: J44.9 Chronic obstructive pulmonary disease, unspecified (principal); F03.93 Unspecified dementia, unspecified severity, with mood disturbance; E03.9 Hypothyroidism, unspecified; I10 Essential (primary) hypertension; Z79.899 Other long term (current) drug therapy | CPT/HCPCS: 96127; 99202 ==

== ENCOUNTER 2025-10-03 15:54 | Outpatient (AMB) | payer MEDICARE, OTHER, SELFPAY ==
[2025-10-03 15:59] VITALS: BP 128/72; PULSE 72; TEMP 36.8; O2SAT 94; BMI 25.2
--- NOTE | 2025-10-03 15:59 | A.OFFPC_ITS ---
Vital Signs 10/03/25 15:59 Height 5 ft Weight 58.513 kg BMI 25.2 BP 128/72 Blood Pressure Location Lt brachial Position Sitting Pulse 72 Pulse Source Pulse Oximeter Temp 98.3 F Temp Source Temporal Artery Scan Pulse Oximetry (%) 94 Oxygen Delivery Method Room Air Intake Visit Reasons: 6 mo f/u Residential Care Facility Manager Required: No Accompanied by: Daughter Allergies environmental allergies Allergy (Intermediate, Verified 10/03/25 15:59) Cough Medication List - Last Reconciled 10/03/25 by EDWAR Tam albuterol sulfate 90 mcg/actuation (Ventolin HFA) 2 puffs inhalation Q6H PRN amlodipine 2.5 mg PO DAILY cholecalciferol (vitamin D3) 25 mcg PO DAILY sgfvbyakols-tqbwvluar-kuycrhwj 200-62.5-25 mcg (Trelegy Ellipta) 1 inh inhalation DAILY levothyroxine 50 mcg PO DAILY 90 days magnesium oxide 400 mg PO BEDTIME memantine 10 mg PO BID metoprolol succinate ER 12.5 mg (1/2 x 25 mg) PO DAILY omeprazole 20 mg PO DAILY quetiapine 25 mg PO BEDTIME 90 days venlafaxine ER 75 mg PO DAILY Tobacco use date assessed: 10/03/25 Fall risk assessment: No Falls in past year Last assessed Fall Risk: 10/03/25 Dental Screening Dental Screen Date: 10/03/25 Did you have a dental visit in the last 12 months?: Yes Did you have a dental problem in the last 6 months where you did not have access to dental care?: No HPI HPI Comments History of Present Illness Details 89-year-old female with history of Alzhe brenda's, hypothyroidism, hypertension, COPD, and history of V-tach presents to the office today with her daughter for routine follow-up. The patient is currently living by herself in a house without any issues. She is independent with ADLs. She is no longer driving at the recommendation of her neurologist. She does have compromised decision making and short-term memory issues per her daughter. She does have her family check in on her twice daily. She does have unsteady gait and ambulates with a cane and denies any recent falls. She is eating and drinking without difficulty and has not had any significant weight loss. She is compliant with all of her medications. There are no complaints at this time COPD-only using Trelegy as needed rather than as a maintenance inhaler. Does report exertional wheezing. Comfortable at rest Alzheimers- as above. Follows with Dr. Arrieta, next appointment 10/09. Using memantine 10 mg twice daily, quetiapine 25 mg nightly in 12.5 mg every morning. Mood effectively managed with venlafaxine Hypertension/history of W-bcgt-ixvqnzxuvb 2.5 mg daily, Toprol 12.5 mg daily Hypothyroidism- on levothyroxine 50 mcg daily. Due for TSH Concerns: None ROS: General: No fevers, malaise, unintentional weight loss HEENT: No blurred vision, diplopia. No sore throat, nasal congestion, rhinorrhea, sinus pain, ear pain Cardiovascular: No chest pain, palpitations, or leg edema Respiratory: No shortness of breath, wheezing, cough. See HPI GI: No abdominal pain, nausea, vomiting, diarrhea, constipation, melena, hematochezia : No dysuria, hematuria, increased urinary frequency, decreased urinary output MSK: No myalgia, back pain Neuro: No headaches, weakness, paresthesias Skin: No rashes or lesions EXAM: Constitutional - Awake and Alert, No apparent distress Eyes - PERRL Cardiovascular - S1S2, RRR, No edema Respiratory - Normal lung expansion, Normal respiratory effort, No respiratory distress, scattered expiratory wheezes Extremities - no calf tenderness bilaterally, no swelling Skin - Warm/Dry Neurological - Alert & oriented x3 Psychological - Appropriate affect PFSH Medical History Pyloric channel ulcer Nephrolithiasis Common bile duct stone COPD (chronic obstructive pulmonary disease) Osteoporosis Hypertension Hypothyroidism Dementia V-tach Surgical History Hx of cystoscopy Hx of tonsillectomy Hx of appendectomy Hx of tubal ligation History of esophagogastroduodenoscopy (EGD) History of ERCP Family History (Updated 10/03/25 @ 16:09 by Sabine Staley MA) Father Heart problem Mother Pancreatic cancer Social History Household Members: None Housing: House Do you presently have visiting nurse or other home services: No Alcohol intake: current Alcohol intake frequency: holidays/special occasions only Patient Tobacco Use Status: Former Tobacco user e-Cigarette/Vaping Use: Former Use Second Hand Smoke Exposure: No Advance Directives Date on File: 02/07/24 service: No Current occupational status: retired Cognitive needs: No Hearing needs: Yes Vision needs: Yes (reading glasses) Questionnaire PHQ-9 Over the last 2 weeks, how often have you been bothered by any of the following problems? 1. Little interest or pleasure in doing things: not at all 2. Feeling down, depressed, or hopeless: not at all 3. Trouble falling or staying asleep, or sleeping too much: not at all 4. Feeling tired or having little energy: not at all 5. Poor appetite or overeating: not at all 6. Feeling bad about yourself - or that you are a failure or have let yourself or your family down: not at all 7. Trouble concentrating on things, such as reading the newspaper or watching television: not at all 8. Moving or speaking so slowly that other people could have noticed. Or the opposite - being so fidgety or restless that you have been moving around a lot more than usual: not at all 9. Thoughts that you would be better off or of hurting yourself in some way: not at all Total score: 0 Source: Developed by Drs. Pito Monaco, Haley Washington, Jos Swanson and colleagues, with an educational betty from [employer]. Thrive Questionnaire Date Thrive assessed: 10/03/25 I am a: Patient Within the past 12 months, did the food you bought not last and you didn't have the money to get more?: Never true Within the past 12 months, did you worry whether your food would run out before you got money to buy more?: Never true Do you have trouble paying for medicines?: No Do you have trouble getting transportation to medical appointments?: No Do you have trouble paying your heating and electricity bill?: No Do you have trouble taking care of your child, family member or friend?: No Do you have trouble with day-to-day activities such as bathing, preparing meals, shopping, managing finances, etc.?: No Are you currently unemployed and looking for a job?: No Are you interested in more education?: No THRIVE Score: 0 AUDIT C Alcohol Use Questionnaire (AUDIT-C) 1. How often do you have a drink containing alcohol?: Monthly or less 2. How many drinks containing alcohol do you have on a typical day when you are drinking?: 1 or 2 3. How often do you have six or more drinks on one occasion?: Less than monthly Total Score: 2 JULIA-7 AMB Questionnaire JULIA-7 Date JULIA - 7 assessed: 10/03/25 Feeling nervous, anxious, or on edge: 0 = Not at all Not being able to stop or control worryin = Not at all Worrying too much about different things: 0 = Not at all Trouble relaxin = Not at all Being so restless that it is hard to sit still: 0 = Not at all Becoming easily annoyed or irritable: 0 = Not at all Feeling afraid as if something awful might happen: 0 = Not at all Total JULIA-7 score (0-4 normal; 5-9 mild; 10-14 moderate; 15-21 severe): 0 Source: Developed by Drs. Pito Monaco, Haley Washington, Jos Swanson and colleagues, with an educational betty from [employer]. Physical exam (Primary Care) Vital Signs: Last Vital Signs Temp 98.3 F 10/03/25 15:59 Pulse 72 10/03/25 15:59 BP 128/72 10/03/25 15:59 Pulse Ox 94 10/03/25 15:59 Oxygen Delivery Method Room Air 10/03/25 15:59 BMI result Body Mass Index 25.2 Tobacco/Smoking Status: Tobacco use Status Tobacco use date assessed 10/03/25 10/03/25 16:02 Patient Tobacco Use Status Former Tobacco user 10/03/25 16:02 e-Cigarette/Vaping Use Former Use 10/03/25 16:02 PHQ-9: PHQ-9 Score PHQ-9: Total score 0 10/03/25 16:09 Thrive Assessment: Date of Thrive Assessment Date Thrive assessed 10/03/25 10/03/25 16:02 Coding Level of Care Code Est Pt Level 4 (45172) Complex EM visit Add On G2211 Diagnoses Primary hypertension I10 Hypertension type: primary hypertension Hypothyroidism E03.9 Dementia with mood disturbance, unspecified dementia severity, unspecified dementia type F03.93 Dementia type: unspecified type Dementia severity: unspecified severity Dementia behavioral or psychological symptom: with mood disturbance Chronic obstructive pulmonary disease, unspecified COPD type J44.9 COPD type: unspecified COPD Assessment & Plan Assessment & Plan (1) Hypertension: Code(s): I10 - Essential (primary) hypertension Category: Medical Qualifiers: Hypertension type: primary hypertension Qualified Code(s): I10 - Essential (primary) hypertension Plan: Controlled. Continue amlodipine and Toprol (2) Hypothyroidism: Code(s): E03.9 - Hypothyroidism, unspecified Category: Medical Plan: TSH with reflex free T4 ordered. Continue levothyroxine 50 mcg daily, dose to be adjusted pending results (3) Dementia: Code(s): F03.90 - Unspecified dementia, unspecified severity, without behavioral disturbance, psychotic disturbance, mood disturbance, and anxiety Category: Medical Qualifiers: Dementia type: unspecified type Dementia severity: unspecified severity Dementia behavioral or psychological symptom: with mood disturbance Qualified Code(s): F03.93 - Unspecified dementia, unspecified severity, with mood disturbance Plan: Stable, no behavioral concerns or safety concerns. Continue following with Neurology. Continue quetiapine, venlafaxine, memantine. Keep sleep-wake cycle (4) COPD (chronic obstructive pulmonary disease): Code(s): J44.9 - Chronic obstructive pulmonary disease, unspecified Category: Medical Qualifiers: COPD type: unspecified COPD Qualified Code(s): J44.9 - Chronic obstr uctive pulmonary disease, unspecified Plan: Advised to use Trelegy daily as a maintenance inhaler. Use albuterol as needed for shortness of breath and wheezing. If symptoms are not improving, reach out to the office. No indication for steroids at this time Plan Follow-up in the office in 6 months. Labs as ordered Orders: Orders Vitamin B12 Today E03.9 - Hypothyroidism, unspecified, E53.8 - Deficiency of other specified B group vitamins, I10 - Essential (primary) hypertension Basic Metabolic Panel Today E03.9 - Hypothyroidism, unspecified, E53.8 - De ficiency of other specified B group vitamins, I10 - Essential (primary) hypertension TSH reflex Free T4 Today E03.9 - Hypothyroidism, unspecified, E53.8 - Deficiency of other specified B group vitamins, I10 - Essential (primary) hypertension Medications: New albuterol sulfate 90 mcg/actuation (Ventolin HFA) 2 puffs inhalation Q6H PRN 8.5 grams 1RF shortness of breath or wheezing magnesium oxide 400 mg PO BEDTIME 90 caps 1RF kooltxlycrx-bxyovgvnm-sqhdeixx 200-62.5-25 mcg (Trelegy Ellipta) 1 inh inhalation DAILY 60 ea 5RF
--- OUTSIDE RECORDS SUMMARY | 2025-10-03 16:47 | XMS_ITS | Clinical Summary ---
Author Organization [facility] Address [address] [place] [phone] Phone Care Team Providers Care Mechanic Field Service Name Role Phone Bret Carpenter MD Primary Care Provider Allergies No known active allergies Medications levothyroxine (SYNTHROID, LEVOTHROID) 75 MCG tablet Take 75 mcg by mouth every morning. 1 tablet on an empty stomach in the morning Active venlafaxine (EFFEXOR) 75 MG tablet Take 75 mg by mouth daily. Active QUEtiapine (SEROQUEL) 25 MG tablet Take 12.5 mg by mouth 2 (two) times a day. 2 Active cholecalciferol (VITAMIN D3) 4,000 unit tablet Take 1,000 Units by mouth daily. Three times a week Active cyanocobalamin, vitamin B-12, 250 MCG tablet Take 250 mcg by mouth daily. Three times a week Active betamethasone dipropionate 0.05 % ointment APPLY TO ECZEMA TWICE A DAY NEEDED 3 Active amLODIPine (NORVASC) 5 MG tabletIndications :Benign essential hypertension TAKE 1 TABLET (5 MG TOTAL) BY MOUTH DAILY. 90 tablet 3 3 Active memantine (NAMENDA) 10 MG tablet Take 1 tablet by mouth 2 (two) times a day. 3 Active omeprazole (PRILOSEC) 20 MG tablet Take 20 mg by mouth daily. Active metoprolol succinate (TOPROL-XL) 25 MG 24 hr tablet Take 0.5 tablets (12.5 mg total) by mouth daily. 45 tablet 3 5 Active Active Problems Problem Noted Date Diagnosed Date NSVT (nonsustained ventricular tachycardia) 04/2023 Assessment & Plan (12/24/2024 3:01 PM EST): No evidence of ischemia noted on recent stress test. Normal ejection fraction. Patient has remained asymptomatic with no symptoms concerning for arrhythmias. No medication changes at this time. Continue metoprolol 12.5 mg daily. Assessment & Plan (11/29/2023 4:52 PM EST): No evidence of ischemia noted on stress test. Normal ejection fraction. At this point we will continue metoprolol. Assessment & Plan (10/02/2023 11:29 AM EST): She had an asymptomatic episode of nonsustained VT. Echocardiogram shows normal ejection fraction with no clear evidence of wall motion abnormality. Patient denies palpitations, denies passing out. We will request for stress test to evaluate for obstructive CAD. We will request for low-dose beta-nghia with metoprolol 12.5 mg once a day. Malaise and fatigue 08/03/2022 Assessment & Plan (09/22/2022 2:25 PM EDT): Initially she had reported some fatigue which over the past few weeks has improved. She denies any cardiac symptoms are concerning at this time. Premature atrial complexes 08/03/2022 Assessment & Plan (11/29/2023 4:53 PM EST): Asymptomatic. Will continue metoprolol. Assessment & Plan (10/02/2023 11:30 AM EST): PAC burden is low currently. Will start low-dose beta-nghia Assessment & Plan (08/15/2023 10:27 AM EDT): She wore a monitor last year (after reporting palpitations) that showed frequent PACs and a 4 beat run of VT. Because of the ectopy, her amlodipine was discontinued and she was put on carvedilol by Dr Neil. Since then, she notes an increase in fatigue. Her carvedilol was discontinued by PCP due to fatigue and bradycardia (HR in 40s on EKG, we do not have a copy of this EKG). Today, her blood pressure in 166/64. Her heart rate is in the mid-high 50s after being off of carvedilol for a little over a week now. She's feeling a bit better off of the beta nghia. Will restart amlodipine at 5 mg daily to get her BP under better control. Will repeat a monitor to assess for any persistent bradycardia, higher degree AV block or additional arrhythmias off of beta nghia. She has never had an echocardiogram. Given VT on previous monitor, will get her scheduled for an echo to get a baseline. I reviewed all of this with her daughter, who is an RN, on the phone during the visit today. Assessment & Plan (09/22/2022 2:24 PM EDT): 5% burden of PACs. She is potentially on carvedilol and we will obtain an accurate medication list from her daughter [place] the country. At that time we will make adjustments if necessary. She does have a pending echocardiogram in November which I have encouraged her to keep and follow-up with the physician in January. Benign essential hypertension 08/03/2022 Assessment & Plan (12/24/2024 3:01 PM EST): Blood pressure controlled in the office today 128/70. Patient educated on HTN pathophysiology, htn medication, importance of low salt DASH heart healthy diet, exercise and home B/P monitoring. No medication changes at this time. Continue amlodipine 5 mg daily. Assessment & Plan (10/02/2023 11:30 AM EST): Blood pressure is controlled on today's visit. Continue medications. Assessment & Plan (09/22/2022 2:25 PM EDT): Blood pressure is quite elevated today 156/88 and is unclear what medication she is actually on. It appears that she was supposed to discontinue 2 of her medications and started on carvedilol but it is unclear what medication she was on. We will make medication adjustments based on her medication list when her daughter calls this office. For now she will continue everything as she is. She is in for follow her healthy diet including low sodium. She is very active. Hypothyroidism (acquired) 08/03/2022 Family History Medical History Relation Comments CV disease Father 2 Relation Status Comments Father 1 Father 2 Social History Tobacco Use Types Packs/Day Years Used Date Smoking Tobacco: Former Smokeless Tobacco: Never Tobacco Cessation:Counseling Given: Not Answered Alcohol Use Standard Drinks/Week Comments Yes 0 (1 standard drink = 0.6 oz pur e alcohol) socially Education Answer Date Recorded Are you interested in more education? Not on jorden e 03/24/2023 Are you concerned about learning? Not on file 03/24/2023 No 03/24/2023 No 03/24/2023 Digital Access Answer Date Recorded No 04/22/2023 No 04/22/2023 Reliable internet access at home? Not on file 04/22/2023 Device with a working camera? Not on file Comments No Sex and Gender Information Value Date Recorded Sex Assigned at Not on file Legal Sex Female 10:14 PM EDT Gender Identity Female 10/21/2020 1:05 PM EST Sexual Orientation Not on file Last Filed Vital Signs Vital Sign Reading Time Taken Comments Blood Pressure 128/70 12/24/2024 2:37 PM EST Pulse 82 12/24/2024 2:37 PM EST Temperature 35.7 C (96.3 F) 07/28/2022 10:15 PM EDT Respiratory Rate 18 07/28/2022 10:15 PM EDT Oxygen Saturation 96% 12/24/2024 2:37 PM EST Inhaled Oxygen Concentration - - Weight 54 kg (119 lb) 12/24/2024 2:37 PM EST Height 152.4 cm (5') 12/24/2024 2:37 PM EST Body Mass Index 23.24 12/24/2024 2:37 PM EST Plan of Treatment Upcoming Encounters Date Type Department Care Team (Late st Contact Info) Description 12/24/2025 2:00 PM EST Office Visit [facility] [address] [place] [address] 3rd Floor, [address] [place] [address] Dirk Espino MD [address] [place] [phone] [email or web address] Health Maintenance Due Date Last Done Comments Adult Td,Tdap Booster 1935 DEPRESSION SCREENING 1948 PNEUMOCOCCAL VACCINES (50+ years) (1 of 1 - PCV) 02/11/1986 ZOSTER VACCINES (1 of 2) 02/11/1986 OSTEOPOROSIS SCREENING INITI AL (ONE-TIME) 02/11/2001 RSV VACCINE (1 - 1-dose 75+ series) 02/11/2011 TSH LEVEL 10/21/2021 10/21/2020 INFLUENZA VACCINE (#1) 2025 08/24/2016 COVID-19 VACCINE (3 - 2024-2 6 season) 2025 01/21/2021, 12/31/2020 HEPATITIS A VACCINES Aged Out No long er eligible based on patient's age to complete this topic HIB VACCINES Aged Out No longer eligi ble based on patient's age to complete this topic MENINGOCOCCAL VACCINES (ACWY) Aged Out No longer eligible based on patient's age to complete this topic MENINGOCOCCAL VACCINES (B) Aged Out N o longer eligible based on patient's age to complete this topic Medical Devices Not on file Procedures Procedure Name Priority Date/Time Associated Diagnosis Comments TSH WITH REFLEX STAT 10/21/2020 2:42 PM EST from Last 3 Months or Most Recently Relevant to Health Maintenance Results * TSH with reflex (10/21/2020 2:42 PM EST) TSH 0.98 0.27 - 4.20 uIU/mL [facility] Blood 10/21/2020 2:42 PM EST 10/21/2020 2:52 PM EST us Kaden Sánchez PA-C LAB BLOOD BKR ORDERABLES Yennifer l Result [facility] [address] [place] [address] from Last 3 Months or Most Recently Relevant to Health [place] [address] MEDICARE PART A & B Member Subscriber Plan / Payer (Ef fective 2001-Present) Name:Viridiana Schneider Member ID:[id number] Relation to Subscriber:Self Name:Viridiana Schneider Subscriber ID:[id number] Payer ID:[id number] Group ID:Not on file Type:Medicare Address: [employer] [address] MEDICARE SUPPLEMENT MEDICARE PART A & B Member Subscriber Plan / Payer ( fective 2001-Present) Name:Viridiana Schneider Member ID:[id number] Relation to Subscriber:Self Name:Viridiana Schneider Subscriber ID:[id number] Payer ID:[id number] Group ID:Not on file Type:Medicare Address: [employer] [address] [place] [id number] [place] [address] MEDICARE SUPPLEMENT MEDICARE PART A & B MEDICARE SUPPLEMENT MEDICARE PART A & B MEDICARE SUPPLEMENT MEDICARE PART A & B MEDICARE SUPPLEMENT MEDICARE PART A & B Member Subscriber Plan / Payer (Ef fective 2001-Present) Name:Viridiana Schneider Member ID:[id number] Relation to Subscriber:Self Name:Viridiana Schneider Subscriber ID:[id number] Payer ID:[id number] Group ID:Not on file Type:Medicare Address: [employer] [address] [facility] MEDICARE SUPPLEMENT MEDICARE PART A & B [facility] MEDICARE SUPPLEMENT MEDICARE PART A & B Member Subscriber Plan / Payer ( fective 2001-) Name:Viridiana Schneider Member ID:[id number] Relation to Subscriber:Self Name:Viridiana Schneider Subscriber ID:[id number] Payer ID:[id number] Group ID:Not on file Type:Medicare Address: [employer] [address] [place] [address] MEDICARE PART A & [place] [id number] Care Teams Mechanic Field Service Relationship Specialty Start Date End Date Bret Carpenter MD [address] [place] [address] [place] [address] PCP - General 11/30/17 Additional Source Comments The information contained in this document represents components of the legal health record. It is not the complete legal health record.[facility]
--- OUTSIDE RECORDS SUMMARY | 2025-10-03 16:47 | XMS_ITS | Encounter Summary ---
Author Organization [facility] Address [address] [place] [phone] Phone Care Team Providers Care Water Manager Name Role Phone Bret Carpenter MD Primary Care Provider Encounter Details Date Type Department Care Team (Late st Contact Info) Description 08/03/2022 Procedure Pass Non-Invasive Cardiology [address] [place] [address] Social History Tobacco Use Types Packs/Day Years Used Date Smoking Tobacco: Former Smokeless Tobacco: Never Alcohol Use Standard Drinks/Week Comments Yes 0 (1 standard drink = 0.6 oz pur e alcohol) socially Comments No Sex and Gender Information Value Date Recorded Sex Assigned at Not on file Legal Sex Female 10:14 PM EDT Gender Identity Female 10/21/2020 1:05 PM EST Sexual Orientation Not on file documented as of this encounter Plan of Treatment Upcoming Encounters Date Type Department Care Team (Late st Contact Info) Description 12/24/2025 2:00 PM EST Office Visit [facility] [address] [place] [address] [address]rd Floor, [address] [place] [address] Dirk Espino MD [address] [place] [phone] documented as of this encounter Visit Diagnoses Not on filedocumented in this encounter Care Teams Water Manager Relationship Specialty Start Date End Date Bret Carpenter MD [address] [place] [address] [place] [address] PCP - General 11/30/17 documented as of this encounter Additional Source Comments The information contained in this document represents components of the legal health record. It is not the complete legal health record.[facility]
--- OUTSIDE RECORDS SUMMARY | 2025-10-03 16:47 | XMS_ITS | Encounter Summary ---
Author Organization [facility] Address [address] [place] [address] [address] [place] [address] Phone Care Team Providers Care Foreign Service Teacher Name Role Phone Bret Carpenter MD Primary Care Provider Encounter Details Date Type Department Care Team (Late st Contact Info) Description 08/14/2023 Procedure Pass Echo [facility] [address] [place] [id number] Social History Tobacco Use Types Packs/Day Years [...] Description 12/24/2025 2:00 PM EST Office Visit [facility] [address] Floor, [address] [place], [place] [id number] Dirk Espino MD [address] [place] [phone] [email or web address] documented as of this encounter Visit Diagnoses Not on filedocumented in this encounter Care Teams Foreign Service Teacher Relationship Specialty Start Date End Date Bret Carpenter MD [address] [place] [address] [place] [address] PCP - General 11/30/17 documented as of this encounter Additional Source Comments The information contained in this document represents components of the legal health record. It is not the complete legal health record.[facility]
== END 2025-10-03 16:25 | disposition home or self-care (01) ==
LOC: HO.HMCHD 15:55
PROVIDERS: PCP Internal Medicine; Visit Provider Physician Assistant
DX: I10 Essential (primary) hypertension (principal); E03.9 Hypothyroidism, unspecified; F03.93 Unspecified dementia, unspecified severity, with mood disturbance; J44.9 Chronic obstructive pulmonary disease, unspecified

== ENCOUNTER → 2025-10-03 15:54 | Outpatient (BNVA) | payer MEDICARE, OTHER, SELFPAY | PROVIDERS: PCP Internal Medicine; Visit Provider Physician Assistant | DX: I10 Essential (primary) hypertension (principal); E03.9 Hypothyroidism, unspecified; F03.93 Unspecified dementia, unspecified severity, with mood disturbance; J44.9 Chronic obstructive pulmonary disease, unspecified; Z79.899 Other long term (current) drug therapy; Z13.30 Encounter for screening examination for mental health and behavioral disorders, unspecified; Z13.39 Encounter for screening examination for other mental health and behavioral disorders | CPT/HCPCS: 96127; 99212 ==

== ENCOUNTER 2025-10-09 11:20 | Outpatient (AMB) | payer MEDICARE, OTHER, SELFPAY ==
--- OUTSIDE RECORDS SUMMARY | 2024-04-17 08:50 | XMS_ITS ---
Author Organization [facility] Address [address] [place] [address] Care Team Providers Care Fitness Worker Name Role Phone Jayden (RETIRED) Bret CORTES Primary Care Provide r Holly Rodriguez Jr, Sharad Unavailable REASON FOR VISIT gastric ulcers Encounters Encounter Location Date Provider Diagnosis [facility] Outpatient [address] [place] [id number] 04/17/2024 Sharad Rodriguez Jr Gastric ulcer K25.9 Assessments Encounter Date Diagnosis (ICD Code) Assessment Notes Treatment Notes Treatment Clinical Notes Section Notes 04/17/2024 Gastric ulcer (ICD-10 - K25.9) Plan Of Treatment No Information Progress Notes * NADIR ALLISON DDOB:[birth year] (89 yo F)Acc No.[id number]:04/17/2024 EGD/MAC Patient: Rory HENDERSONNADIR RIVAS Provider: Gray Rodriguez MD :1935 A ge:89 Y S ex:Female Date:04/17/2024 Address:[address] [place] [address] [facility] Pcp:Bret Carpenter (RETIRED )MD Subjective: * Chief Complaints: * 1 . Gastric ulcers. * Medical History: Objective: * Vitals: Assessment: * Assessment: 1. G astric ulcer - K25.9 (Primary) Plan: * Treatment: * Procedure Codes: 4 3239 UPPER GI ENDOSCOPY, BIOPSY * * The named appointment provid er may or may not be the originator of this progress note, and it is not deemed complete until electronically signed by the appointment provider. Sign off status: Pending * Provider: Gray Rodriguez MD Date: 0 04/17/2024 Generated for June wallace/Cynthia/Swathi on: 12/09/2024 02:25 PM EST
--- NOTE | 2025-10-09 11:21 | A.OFFVIS_ITS ---
Intake Visit Reasons: 6m Accompanied by: Daughter Allergies environmental allergies Allergy (Intermediate, Verified 10/09/25 11:26) Cough Medication List - Last Reconciled 10/09/25 by Keyla Verduzco CNP albuterol sulfate 90 mcg/actuation (Ventolin HFA) 2 puffs inhalation Q6H PRN amlodipine 2.5 mg PO DAILY cholecalciferol (vitamin D3) 25 mcg PO DAILY mlnhaqupgdm-giioqcpbp-pizwmqep 200-62.5-25 mcg (Trelegy Ellipta) 1 inh inhalation DAILY levothyroxine 50 mcg PO DAILY 90 days magnesium oxide 400 mg PO BEDTIME memantine 10 mg PO BID metoprolol succinate ER 12.5 mg (1/2 x 25 mg) PO DAILY omeprazole 20 mg PO DAILY quetiapine 25 mg orally 1/2 tablet in the morning and 1 tablet at bedtime; venlafaxine ER 75 mg PO DAILY HPI Comments Details: 89-year-old woman with dementia with behavioral symptoms. She was initially seen in 2021 with few years history of forgetfulness. With combination of meds, her symptoms were stable, especially mood symptoms. She was doing okay. Memory may be declining some, and may be a bit more forgetful. She was living alone, cooking and cleaning, and there were no safety issues. Children checked in on her regularly. She has not driven in a few years. Balance was off at times, but no falls. Mood was okay with current medications. Her daughter reports only one episode of agitation. Sleep was generally okay, although she was having some restlessness in her legs. She was prescribed gabapentin for RLS symptoms in the past, but did not want to try this medication. More recently, she was prescribed magnesium, but she has not tried it yet. [facility] Medical History Pyloric channel ulcer Nephrolithiasis Common bile duct stone COPD (chronic obstructive pulmonary disease) Osteoporosis Hypertension Hypothyroidism Dementia V-tach Surgical History Hx of cystoscopy Hx of tonsillectomy Hx of appendectomy Hx of tubal ligation History of esophagogastroduodenoscopy (EGD) History of ERCP Family History (Updated 10/03/25 @ 16:09 by Sabine Staley MA) Father Heart problem Mother Pancreatic cancer Social History Household Members: None Housing: House Do you presently have visiting nurse or other home services: No Alcohol intake: current Alcohol intake frequency: holidays/special occasions only Patient Tobacco Use Status: Former Tobacco user e-Cigarette/Vaping Use: Former Use Second Hand Smoke Exposure: No Advance Directives Date on File: 02/07/24 service: No Current occupational status: retired Cognitive needs: No Hearing needs: Yes Vision needs: Yes (reading glasses) Review of Systems Const Denies chills, Denies daytime sleepiness, Denies difficulty sleeping, Denies fatigue, Denies fever(s), Denies frequent falls, Denies headache(s), Denies increased appetite, Denies poor appetite, Denies snoring, Denies weakness, Denies weight gain and Denies weight loss Eyes Denies loss of vision ENT Denies vertigo, Denies dizziness and Denies headache(s) Card Denies chest pain at rest, Denies chest pain with activity, Denies syncope, Denies leg edema and Denies palpitations Resp Denies snoring GI Denies constipation, Denies heartburn, Denies diarrhea and Denies nausea Denies urinary frequency, Denies urinary incontinence and Denies urinary urgency Musc Denies abnormal gait, Denies numbness and Denies tingling Skin/Breast Denies dry skin and Denies rash Neuro Denies abnormal gait, Denies vertigo, Denies dizziness, Denies syncope, Denies frequent falls, Denies headache(s), Denies lack of coordination, Denies loss of vision, Reports memory loss, Denies numbness, Reports restless legs, Denies seizure-like activity, Denies tingling, Denies paresthesias, Denies tremor(s) and Denies weakness Psych Denies anxiety, Denies depression, Denies auditory hallucinations, Reports memory loss, Denies visual hallucinations and Denies suicidal ideation Endo Denies fatigue and Denies palpitations Physical Exam Const Other: General Appearance:? normal, in no acute distress. Skin:? no rashes, no significant birthmarks. Heart:? S1, S2 normal, no murmurs. Lungs:? clear anteriorly and posteriorly. Extremities:? no edema. Psych:? alert, cooperative with exam. Neuro Other: Mental Status:?Alert and awake with normal sp speech, fluency, comprehension, and normal affect. She was able to tell me that she was here with her daughter and her name. She was able to tell me her age and birthday. Cranial Nerves:?Pupils are equal, round and reactive to light. External occular muscles are intact. Visual gee are full. Face is symmetrical. Facial sensations are normal. Tongue is midline. Palate elevates symmetrically. Shoulde r shrugging is normal. Hearing to bedside conversation is normal. Sensory Exam:?....? Coordination:?No ataxia,?no titubation.? Gait Exam: Within normal limits. Cerebellar Signs:?Sllitg-lz-vzsh is okay. Extrapyramidal System:?No tremor, rigidity with normal facial expressions.? Pronator Drift:?Not present.? Involuntary Movements:?No tremors seen.? Speech:?Normal.? Results Reviewed Results Reviewed: CT brain WO at [facility] in May 2021: mod atrophy, mod MVD Assessment & Plan Assessment & Plan (1) Alzheimers disease: Code(s): G30.9 - Alzheimer's disease, unspecified; F02.80 - Dementia in other diseases classified elsewhere, unspecified severity, without behavioral disturbance, psychotic disturbance, mood disturbance, and anxiety Category: Medical Plan: Continue memantine 10mg 1 tablet twice a day. Continue venlafaxine ER 75mg 1 capsule daily. Continue quetiapine 25mg 1/2 tablet in the morning and 1 tablet at bedtime. Stay physically and socially active, may consider using cane or walker for additional support. Follow up in 6 months or sooner as needed. (2) Multifactorial dementia: Code(s): F03.90 - Unspecified dementia, unspecified severity, without behavioral disturbance, psychotic disturbance, mood disturbance, and anxiety Category: Medical Plan . Medications: Changed From quetiapine 25 mg orally 1/2 tablet in the morning and 1 tablet at bedtime; To quetiapine 25 mg orally 1/2 tablet in the morning and 1 tablet at bedtime; 135 tabs 1RF 90 days Coding Level of Care Code Est Pt Level 4 (49783) Diagnoses Alzheimers disease G30.9; F02.80 Multifactorial dementia F03.90
--- OUTSIDE RECORDS SUMMARY | 2025-10-09 14:25 | XMS_ITS | Patient Health Record ---
Author Organization [facility] Address [address] [place] [address] Care Team Providers Care Cigarette Packing Machine Operator Name Role Phone Jayden (RETIRED) Bret CORTES Primary Care Provide Sharad Emanuel Jr Unavailable [phone] Allergies No Known Allergies Reason For Referral No Information Medications Medication SIG (Take, Route, Frequency, Duration) Notes Start Date End Date Status amLODIPine Besylate 2.5 MG 1 tablet Oral ly Once a day Active Venlafaxine HCl 75 MG 1 tablet with food Orally Once a day Active Metoprolol Succinate ER 25 MG 1 tablet Orally Once a day; Duration: 30 day(s) Active Omeprazole 40 MG 1 capsule 30 minutes before morning meal Orally twice a day Active Iron Carbonyl-Vitamin C-FOS 30-10-25 MG 1 tablet with food and juice Orally Once a day; Duration: 30 day(s) Active Losartan Potassium 100 MG 1 tablet Orall y Once a day Active Levothyroxine Sodium 50 MCG 1 tablet on an empty stomach in the morning Orally Once a day Active Memantine HCl 10 MG 1 tablet Orally Once a day; Duration: 30 day(s) Active Vitamin C ER 1500 MG 1 tablet Orally Onc e a day; Duration: 30 day(s) Active Immunizations Vaccine Route Administration [...] Problem Status W/U Status Risk Notes Problem Epigastric pain (09745185) Epigastric pain (R10.13) Active confirmed Problem Acute gastric ulcer with hemorrhage (35552808) Acute gastric ulcer with hemorrhage (K25.0) Active confirmed Problem Gastroesophageal reflux disease without esophagitis (111827758) Gastroesophageal reflux disease without esophagitis (K21.9) Active confirmed Problem Esophageal spasm (26740426) Esophageal spasm (K22.4) Active confirmed Problem Common bile duct calculi (K80.50) Active confirmed Problem Gastric ulcer (213988769) Gastric ulcer (K25.9) Active confirmed Problem Secondary hypertension (81968542) Secondary hypertension (I15.9) Active confirmed Plan Of Treatment Future Test Test Name Order Date COLONOSCOPY 02/01/2012 UPPER GI ENDOSCOPY 10/10/2018 ERCP REMOVAL OF STONES 10/10/2018 UPPER GI ENDOSCOPY 02/19/2024 Insurance Providers Payer Name Payer Address Payer Phone Subscriber Number Group Number Insured Name Patient Relationship to Insured Coverage Start Date Coverage End Date MEDICARE OF [place] [address] [place] [address] [phone] [id number] NADIR GALEANO Self - patient is the insured [facility] [address] [place] [address] [id number] NADIR GALEANO Self - patient is the [...]
--- OUTSIDE RECORDS SUMMARY | 2025-10-09 14:26 | XMS_ITS | Clinical Summary ---
Author Organization [facility] Address [address] [place] [address] Phone Care Team Providers Care Seasoning Sprayer Name Role Phone Bret Carpenter MD Primary [...] Description 12/24/2025 2:00 PM EST Office Visit [facility] [address] [place] [address] 3rd Floor, [address] [place] [address] Dirk Espino MD [address] [place] [id number] [email or web address] Health Maintenance Due Date Last Done Comments [...] on patient's age to complete this topic IPV VACCINES Aged Out No longer eligi ble [...] EST) TSH 0.98 0.27 - 4.20 uIU/mL [facility] Blood 10/21/2020 2:42 PM EST 10/21/2020 2:52 PM EST us Kaden Sánchez PA-C LAB BLOOD BKR ORDERABLES Yennifer stacy Result [address] [address] from Last 3 Months or Most Recently Relevant to Health Maintenance Insurance MEDICARE PART A & B Member Subscriber Plan / Payer (Ef fective 2001-Present) Name:Viridiana Schneider Member ID:[id number] Relation to Subscriber:Self Name:Viridiana Schneider Subscriber ID:[id number] Payer ID:[id number] Group ID:Not on file Type:Medicare Address: [employer] [address] MEDICARE SUPPLEMENT MEDICARE PART A & B Member Subscriber Plan / Payer (Ef fective 2001-Present) Name:Viridiana Schneider Member ID:[id number] Relation to Subscriber:Self Name:Viridiana Schneider Subscriber ID:[id number] Payer ID:[id number] Group ID:Not on file Type:Medicare Address: [employer] [address] MEDICARE SUPPLEMENT MEDICARE PART A & B MEDICARE SUPPLEMENT MEDICARE PART A & B MEDICARE SUPPLEMENT MEDICARE PART A & B Member Subscriber Plan / Payer (Ef fective 2001-) Name:Viridiana Schneider Member ID:[id number] Relation to Subscriber:Self Name:Viridiana Schneider Subscriber ID:[id number] Payer ID:[id number] Group ID:Not on file Type:Medicare Address: [employer] [facility] [id number] [place] [address] MEDICARE SUPPLEMENT MEDICARE PART A & B MEDICARE SUPPLEMENT MEDICARE PART A & B MEDICARE SUPPLEMENT MEDICARE PART A & B Member Subscriber Plan / Payer ( fective 2001-) Name:Viridiana Schneider Member ID:[id number] Relation to Subscriber:Self Name:Viridiana Schneider Subscriber ID:[id number] Payer ID:[id number] Group ID:Not on file Type:Medicare Address: [employer] [address] [place] [address] MEDICARE PART A & B Member Subscriber Plan / Payer (Ef fective 2001-Present) Name:Viridiana Schneider Member ID:[id number] Relation to Subscriber:Self Name:Viridiana Schneider Subscriber ID:[id number] Payer ID:[id number] Group ID:Not on file Type:Medicare Address: [employer] [address] MEDICARE SUPPLEMENT Care Teams Seasoning Sprayer Relationship Specialty Start Date End Date Bret Carpenter MD [address] [place] [address] [place] [address] PCP - General 11/30/17 Additional Source Comments The information contained in this document represents components of the legal health record. It is not the complete legal health record.[facility]
--- OUTSIDE RECORDS SUMMARY | 2025-10-09 14:26 | XMS_ITS | Encounter Summary ---
Author Organization [facility] Address [address] [place] [address] Phone Care Team Providers Care Pumping Supervisor Name Role Phone Bret Carpenter MD Primary Care Provider Encounter Details Date Type Department Care Team (Late st Contact Info) Description 08/03/2022 Procedure Pass Non-Invasive Cardiology [address] [place] [address] Social History Tobacco Use Types Packs/Day Years [...] Description 12/24/2025 2:00 PM EST Office Visit [facility] [address] [place] [address] [address] Floor, [address] [place] [address] Dirk Espino MD [address] [place] [address] documented as of this encounter Visit Diagnoses Not on filedocumented in this encounter Care Teams Pumping Supervisor Relationship Specialty Start Date End Date Bret Carpenter MD [address] [place] [address] [place] [address] PCP - General 11/30/17 documented as of this encounter Additional Source Comments The information contained in this document represents components of the legal health record. It is not the complete legal health record.[facility]
--- OUTSIDE RECORDS SUMMARY | 2025-10-09 14:26 | XMS_ITS | Encounter Summary ---
Author Organization [facility] Address [address] [place] [address] [address] [place] [address] Phone Care Team Providers Care Dog Races Manager Name Role Phone Bret Carpenter MD Primary Care Provider Encounter Details Date Type Department Care Team (Late st Contact Info) Description 08/14/2023 Procedure Pass [facility] [place] [address] [place] [address] Social History Tobacco Use Types Packs/Day Years [...] Description 12/24/2025 2:00 PM EST Office Visit [facility] [address], [address] [place], [place] [phone] Dirk Espino MD [address] [place] [address] [email or web address] documented as of this encounter Visit Diagnoses Not on filedocumented in this encounter Care Teams Dog Races Manager Relationship Specialty Start Date End Date Bret Carpenter MD [address] [place] [address] [place] [address] PCP - General 11/30/17 documented as of this encounter Additional Source Comments The information contained in this document represents components of the legal health record. It is not the complete legal health record.[facility]
--- OUTSIDE RECORDS SUMMARY | 2025-10-09 14:26 | XMS_ITS | Patient Health Record ---
[facility] Address [address] [facility] [place] [address] Care Team Providers Care Mixer Diamond Powder Name Role Phone Jossy Borja Primary Care Provider Unavailabl e Black, Ashely Unavailable [phone] Allergies Allergen (clinical drug ingredient) Drug/Non Drug Allergy documented on EMR Reaction Allergy Type Onset Date Status aspirin Aspirin GI bleed Drug Allergy Active Reason For Referral No Information Medications Medication SIG (Take, Route, Frequency, Duration) Notes Start Date End Date Status Memantine HCl 10 MG 1 tablet Orally Once a day Active Loratadine 10 MG 1 tablet Orally Once a day Active Levothyroxine Sodium 50 MCG 1 capsule in the morning on an empty stomach Orally daily Active SEROquel Active Ammonium Lactate 12 % 1 application Exte rnally to affected areas of dry skin to feet except for between the toes Twice a day; Duration: 30 days Active Metoprolol Succinate Active amLODIPine Besylate 2.5 MG 1 tablet Oral ly Once a day Active Venlafaxine HCl 75 MG 1 tablet with food Orally Once a day Active Social History Tobacco Use: Social History Observation Description Date Details (start date - stop date) Never Smoker NA - NA Tobacco use other than smoking: Question Answer Notes Are you an other tobacco user? No Tobacco Control (Standard) Question Answer Notes Tobacco use: Nonsmoker Additional Findings: Tobacco non-user Current no nsmoker AUDIT-C (Standard) Question Answer Notes Did you have a drink contain ing alcohol in the past year? Yes How often did you have a dri nk containing alcohol in the past year? Declined to specify (0 point) How many drinks did you have on a typical day when you were drinking in the past year? Declined to specify (0 point) How often did you have six o r more drinks on one occasion in the past year? Declined to specify (0 point) Points 0 Interpretation Negative Problems Problem Type SNOMED Code ICD Code Onset Dates Problem Status W/U Status Risk Notes Problem Acquired hammer toe of right foot (0794414015208 105) Other hammer toe(s) (acquired), right foot (M20.41) Active confirmed Problem Acquired hammer toe of left foot (1975045608539 103) Other hammer toe(s) (acquired), left foot (M20.42) Active confirmed Problem Unsteady gait (30878409) Unsteady gait (R26.81) Active confirmed Vital Signs Height 5ft in 08/21/2025 Weight 116 lbs 08/21/2025 BMI 22.65 kg/m2 08/21/2025 Encounters Encounter [facility] Date [facility] [address] [facility] Ashely Mendoza Xerosis of skin L85.3 ; Other hammer toe(s) (acquired), right foot M20.41 ; Pain in right toe(s) M79.674 ; Pain in left toe(s) M79.675 ; Other hammer toe(s) (acquired), left foot M20.42 and Unsteady gait R26.81 [facility] [address] 06/05/2025 Ashely Mendoza Assessments Encounter Date Diagnosis (ICD Code) Assessment Notes Treatment Notes Treatment Clinical Notes Section Notes 08/21/2025 Other hammer toe(s) (acquired), right foot (ICD-10 - M20.41) 08/21/2025 Xerosis of skin (ICD-10 - L85.3) 08/21/2025 Pain in right toe(s) (ICD-10 - M79.674) 08/21/2025 Pain in left toe(s) (ICD-10 - M79.675) 08/21/2025 Other hammer toe(s) (acquired), left foot (ICD-10 - M20.42) 08/21/2025 Unsteady gait (ICD-10 - R26.81) Plan Of Treatment Next Appt Details Provider Name:Ashely Mendoza , 02/19/2026 03:00:00 PM, [address] [place], [address], Insurance Providers Payer Name Payer Address Payer Phone Subscriber Number Group Number Insured Name Patient Relationship to Insured Coverage Start Date Coverage End Date Medicare National Govt [facility] [address] [place] [address] [id number] Viridiana Rachel Self - patient is the insured [address] [facility] [address] [place] [address] [id number] Viridiana Rachel Self - patient is the insured 3 Medical (General) History Medical History History ICD Code Alzheimers disease Anemia Anxiety covid-19 Gall bladder problems High Blood Pressure Psoriasis/eczema Reflux ( GERD) Stomach ulcer thyroid Transfusions Surgical History Surgery Date(Month/Year) cholecystectomy appendectomy
== END 2025-10-09 11:38 | disposition home or self-care (01) ==
LOC: HO.HSM 11:20
PROVIDERS: PCP Internal Medicine; Referring Provider Internal Medicine; Visit Provider Registered Nurse
DX: G30.9 Alzheimer's disease, unspecified (principal); F02.80 Dementia in other diseases classified elsewhere, unspecified severity, without behavioral disturbance, psychotic disturbance, mood disturbance, and anxiety; F03.90 Unspecified dementia, unspecified severity, without behavioral disturbance, psychotic disturbance, mood disturbance, and anxiety
CPT/HCPCS: 99214

== ENCOUNTER 2025-10-09 11:20 | Outpatient (REF) | payer MEDICARE, OTHER, SELFPAY ==
[2025-10-09 12:59] LABS: Anion Gap 12 (12-20); Blood Urea Nitrogen 13 mg/dL (9-16); Calcium 9.8 mg/dL (8.4-10.2); Carbon Dioxide 30 mmol/L (22-29); Chloride 104 mmol/L (96-108); Estimated Glomerular Filt Rate 59; Potassium 4.8 mmol/L (3.3-5.1); Sodium 141 mmol/L (135-145)
[2025-10-09 13:18] LABS: Vitamin B12 396 pg/mL (200-900)
== END 2025-10-09 11:21 | disposition home or self-care (01) ==
LOC: HO.LAB 11:20
PROVIDERS: Physician Assistant; PCP Internal Medicine; Referring Provider Internal Medicine; Visit Provider Registered Nurse
DX: G30.9 Alzheimer's disease, unspecified (principal); F02.80 Dementia in other diseases classified elsewhere, unspecified severity, without behavioral disturbance, psychotic disturbance, mood disturbance, and anxiety; E03.9 Hypothyroidism, unspecified; I10 Essential (primary) hypertension; E53.8 Deficiency of other specified B group vitamins; Z79.899 Other long term (current) drug therapy
CPT/HCPCS: 36415; 80048; 82607; 84443; 99212